=== PATIENT | female | born 1945 | race Caucasian/White ===

== ENCOUNTER → 2018-06-03 10:43 | Outpatient (CLI) | payer MEDICARE, MEDICAID, SELFPAY | PROVIDERS: Referring Provider Urology; Visit Provider Urology | DX: R30.0 Dysuria (principal) | CPT/HCPCS: 87077; 87086; 87088; 87186 ==

== ENCOUNTER 2023-02-08 15:30 | Outpatient (RCR) | payer MEDICARE, MEDICAID, SELFPAY ==
--- NOTE | 2023-01-06 12:26 | HP.PTEVAL ---
Patient's Visit Information Visit Information Visit Information: RICARDA BRYSON is a 77 year old F referred to Physical Therapy by Dr. Deena Kwon MD with a diagnosis of BPPV. Date of Evaluation: 01/06/23 Physical Therapist: SALLY Torres Visit Plan Frequency: 1-2x /Week Duration: 2 Months Plan: 1-2X/ week for 8 weeks for progressive VOR exercises (more horizontal than vertical) and progress to FGA and CATSIB testing HEP: seated horizontal smooth pursuit and head and eyes move together Subjective Subjective: Pt was sick in Jun, blew her nose and her hearing went away in her R ear and was in ER in [place] due to traveling. She was on prednizone and got better but could not hear our of R ear. They cleaned out her ears. sent her to an ENT and saw fluid on back of ear and put on antibiotics and that did not work. Then 3 weeks ago she got out of bed and started to walk and was dizzy. She has been to and julien and then did head of the edge of the bed and rotate heads because they think it is her crystals. She is contstantly dizzy... better with sitting still. When its bad she feels like a tornado of bees swarming her head. That swarming is constantly there but sometimes it is worse than others. Rolling to her R side...sometimes she will get a little swirlys but not always. There is nothing when she rolls to her L side. She can not walk without anyone hanging onto her. Just moving her head a fraction of an inch makes things swirl. She took the julien before she came. Riding in the car really stirred things up today. She is having a 6 month catscan of her lungs tomm. No catscan of her head. Pt has a pretty constant HEAD since this started that get worse at times. Pt had COVID twice but that was way back when. Pt has major anxiety right now. Pt is scared cause this is a new thing. Jake is present with pt today (/partner) Pain HEAD: Pain Intensity (Out of 10): 4 Objective Objective: Gait: walks holding onto with scissoring and reaching for zuñiga due to being dizzy. Looks straight ahead a more of a shoulder turn to look instead of head turning. R Hallpike and L Hallpike negative for increase in dizziness and nystagmus... pt had some some increase in rolling stomach once sitting up and increase dizziness when sitting up from the hallpike position. Let her rest and sx resolved Sitting smooth pursuit horizontal X 15 seconds increased nausea...subsided quickly Sitting smooth pursuit vertical X 30 seconds with no dizziness or nausea Sitting eye and head movement X 50 seconds (had increase blip of dizziness when turns head and eyes to the R every time) cause she started to feel dizzy and nauseated. Repeated Balance/Special Test Scores Dizziness Score: 88 Goals Goal 1:: I HEP Goal Time Frame: 6-8 Weeks Goal 2:: Be able to walk back to the treatment room without having to hold onto partner Goal Time Frame: 6-8 Weeks Goal 3:: Be able to walk with horizontal head turns with no dizziness and no LOB Goal Time Frame: 6-8 Weeks Goal 4:: Complete horizontal VOR in standing X 1 min without any dizziness Goal Time Frame: 6-8 Weeks Goal 5:: Complete CATSIB and FGA Goal Time Frame: 6-8 Weeks Rehabilitation Potential Rehabilitation Potential: Good Anticipated Interventions Patient/Client Instruction: Educate patient on: Condition and Plan of Care For the Purpose of:: To increase ROM, To improve nutrient delivery to tissue, To improve ability to perform ADL's, To increase tolerance to activity/condition/position, To improve performance and independence with ADL's, To decrease level of supervision to perform tasks, To improve ability of physical actions for home/community/work/leisure, To increase flexibility/ROM, To improve balance and To improve safety with gait Therapeutic Exercise to Include: Strength training, Balance training, Postural training, Gait and locomotor training, Neuromotor development and Active ROM For the Purpose of:: To improve muscle performance and motor function, To improve ability to perform ADL's, To increase tolerance to activity/condition/position, To improve performance and independence with ADL's, To decrease level of supervision to perform tasks, To improve ability of physical actions for home/community/work/leisure, To improve gait and locomotor functions, To improve health of tissue, To increase flexibility/ROM and To improve balance Functional Training to Include: Gait training For the Purpose of:: To improve gait and locomotor functions Text: Thank you for the opportunity to evaluate your patient. For Medicare and Medicare HMO plans, please review the plan of care and approve it. It will need to be FAXED BACK to us at [phone] for Medicare purposes. For Medicare only, by signing this I certify the plan of care. Please let me know if there are questions or concerns regarding this plan of care. Physician Signature: Date:
--- NOTE | 2023-02-08 15:54 | HP.PTDCSUM ---
Discharge Summary D/C summary: It has been my pleasure to treat RICARDA BRYSON referred by Dr. Deena Kwon MD, with the diagnosis of BPPV for a total of 4 visit(s). Discharge Date: 02/08/23 Please see the following information for a summary of their discharge status. Subjective Subjective: Robyn been a slacker on my exercises. Things are harder with glasses on. Probably about the same as two weeks ago. Feels disoriented allt he time and worse with fatigue. No spinning. No falls, unsteady at times. Activities are pretty normal but wants to sit on butt alot. did exercises alot 2x/day first week adn once in past week. to doctor in March. Pain HEAD: Pain Intensity (Out of 10): 4 Overall Improvement % Improvement: 75 Objective Objective/Function: FGA is excellent and significantly better. VOR no problem. - B shelly croft. Goals Goal 1:: I HEP Goal Progress: Goal Met Goal 2:: Be able to walk back to the treatment room without having to hold onto partner Goal Progress: Goal Met Goal 3:: Be able to walk with horizontal head turns with no dizziness and no LOB Goal Progress: Goal Met Goal 4:: Complete horizontal VOR in standing X 1 min without any dizziness Goal Progress: Goal Met Goal 5:: Complete CATSIB and FGA Goal Progress: Goal Met Plan Plan: d/c D/C Information Discharge Comments: Pt to contact doctor if situation worsens or does not continue to improve to her satisfaction with HEP d/c sentence: If there are questions or concerns regarding this patient's physical therapy, please feel free to call me at [phone]. Thank you for the referral of this patient. Sincerely, Tate Márquez, DPT, OCS, CSCS Balance/Gait/Functional tests Balance/Special Test Scores Functional Gait Assessment Score: 29 % Disability: 3.3400 Dizziness Score: 88
== END 2023-02-08 19:00 | disposition home or self-care (01) ==
LOC: PT 15:30
PROVIDERS: PCP Student in an Organized Health Care Education/Training Program; Referring Provider Student in an Organized Health Care Education/Training Program; Visit Provider Student in an Organized Health Care Education/Training Program
DX: H81.11 Benign paroxysmal vertigo, right ear (principal)
CPT/HCPCS: 97161; 97164; 97530

== ENCOUNTER → 2023-04-20 | Outpatient (CLI) | payer MEDICARE, MEDICAID, SELFPAY ==
[2023-04-20 12:37] VITALS: PULSE 66; PULSE 75; PULSE 80; PULSE 83; PULSE 86; PULSE 88; PULSE 89; O2SAT 95; O2SAT 96; O2SAT 97
--- NOTE | 2023-04-20 13:06 | PCM.PSN.6M ---
PSN 6 Minute Walk Test 6 Minute Walk Test 6 Minute Walk Test: 6 Minute Walk Test PSN:6-Minute Walk Test Start: 04/20/23 12:36 Freq: Status: Active Protocol: RESP.6MINW Document 04/20/23 12:37 JULIÁN (Rec: 04/20/23 12:39 FLORENTINOCELINEOSMAN [id number]) 6 Minute Walk Test Date Performed 04/20/23 Time Performed 12:30 Height 5 ft 8 in Weight: 72.575 kg Weight in Pounds 160.[address]: Jamar Melvin Assistive device used: None Pre-test Oxygen Delivery Method Room Air Pulse Ox 96 Pulse Rate (60-100) 66 Dyspnea Stacy Scale (0-10) 0.5 Exertion Stacy Scale (6-20) 6 1st minute Oxygen Delivery Method Room Air Pulse Ox 96 Pulse Rate (60-100) 80 2nd minute Oxygen Delivery Method Room Air Pulse Ox 96 Pulse Rate (60-100) 83 3rd minute Oxygen Delivery Method Room Air Pulse Ox 95 Pulse Rate (60-100) 86 4th minute Oxygen Delivery Method Room Air Pulse Ox 96 Pulse Rate (60-100) 88 5th minute Oxygen Delivery Method Room Air Pulse Ox 97 Pulse Rate (60-100) 89 6th minute Oxygen Delivery Method Room Air Pulse Ox 97 Pulse Rate (60-100) 86 Dyspnea Stacy Scale (0-10) 1 Exertion Stacy Scale (6-20) 13 Post-test Oxygen Delivery Method Room Air Pulse Ox 97 Pulse Rate (60-100) 75 Full Laps Walked 21 Partial Lap, Number of Tiles Walked 10 Total Distance Walked (ft) 1249 Interpretation Interpretation: The patient was able to ambulate 1249 feet over the course of 6 minutes on room air with no assistive devices or breaks. Patient experienced no significant changes in saturation or heart rate during testing. These findings are consistent with a normal walking oximetry. Recommendations Recommendations: No supplemental oxygen is indicated at this time.
== END | disposition home or self-care (01) ==
LOC: PSN 12:15
PROVIDERS: PCP Student in an Organized Health Care Education/Training Program; Referring Provider Internal Medicine Critical Care Medicine; Visit Provider Internal Medicine Critical Care Medicine
DX: R06.00 Dyspnea, unspecified (principal)
CPT/HCPCS: 94618

== ENCOUNTER → 2023-04-26 | Outpatient (CLI) | payer MEDICARE, MEDICAID, SELFPAY ==
--- NOTE | 2023-04-27 08:02 | PFT ---
INTRODUCTION: The patient is a 77-year-old female who presents for pulmonary function studies secondary to a diagnosis of dyspnea. Respiratory therapy reported good patient effort. Bronchodilators were used during testing. INTERPRETATION: Forced expiration spirometry demonstrates the presence of a mild large airways obstructive ventilatory defect. There was no significant response to aerosolized bronchodilators. Spirograms are of good quality and plateau gradually indicating slow emptying of the lungs. Body plethysmography was performed and revealed an elevated RV to 137% of predicted, indicative of underlying air trapping. Diffusing capacity by single breath CO was reduced at 71% of predicted. IMPRESSION: Irreversible mild large airways obstructive ventilatory defect with associated air trapping and symmetric reduction in diffusion capacity.
== END | disposition home or self-care (01) ==
LOC: PSN 12:25
PROVIDERS: PCP Student in an Organized Health Care Education/Training Program; Referring Provider Internal Medicine Critical Care Medicine; Visit Provider Internal Medicine Critical Care Medicine
DX: R06.00 Dyspnea, unspecified (principal)
CPT/HCPCS: 94060; 94726; 94729

== ENCOUNTER 2023-05-03 05:19 | Day surgery (SDC) | payer MEDICARE, MEDICAID, SELFPAY ==
--- NOTE | 2023-05-03 | IMM_PTH ---
PATIENT: RICARDA BRYSON LOC: EN U#:[id number] AGE/SX: 77/F ROOM: RE05/03/[address]: Dr. Mauri Macedo DO : 1945 BED: DIS: 05/03/2023 SPEC #: [id number] RECD: 05/04/23 12:56 STATUS: SANJEEV REQ #: [id number] KENADLL: 05/03/23 00:[address]: Mauri Macedo DEPT: IMMUNOHISTOCHEMISTRY RECD BY: Rashmi Fried ENTERED: 05/04/23 12:57 SP TYPE: IMMUNO OTHR DR: Dr. Deena Kwon MD Tissues: Esophagus, NOS Procedures: P53 (initial) KI-67 (initial) PHYSICIAN & INSTITUTION [place] [id number] SPECIMEN INFORMATION: Tissue Source: Distal esophagus Clinical Info: Pernicious anemia, hiatal hernia, diverticulosis Specimen Number: [id number] CPT code: 33509, 73933 METHODOLOGY: Deparaffinized sections of prefer/formalin-fixed tissue or PAP/DQ stained slides are incubated with monoclonal/polyclonal antibodies/oligonucleotide probes. Localization is made via biotin free immunoperoxidase method. Appropriate controls are performed and reacted as expected. Results on target cell population are indicated in the following table: RESULTS: ANTIBODY / CLONE RESULT P53 (DO-7) negative (null pattern) Ki-67 (30-9) positive, low These tests were developed, and their performance characteristics determined by [facility]. They may not have been cleared or approved by the U.S. Food and Drug Administration. The FDA has determined that such clearance or approval is not necessary. The above immunohistochemical/dualISH markers are ordered and reviewed by the Pathologist. INTERPRETATION: Distal Esophagus Biopsy: Negative for dysplasia. JOSE MANUEL:carito 05/05/2023
[2023-05-03 05:51] VITALS: BP 129/78; PULSE 80; RESP 18; TEMP 36.6; O2SAT 99; BMI 24.5
[2023-05-03] MEDS: Lactated Ringers 1,000 ML 15 ML IV (05:55)
--- NOTE | 2023-05-03 06:30 | EGD_PTH ---
PATIENT: RICARDA BRYSON LOC: EN U#:[id number] AGE/SX: 77/F ROOM: RE05/03/[address]: Dr. Mauri Macedo DO : 1945 BED: DIS: 05/03/2023 SPEC #: [id number] RECD: 05/03/23 10:29 STATUS: SANJEEV REEMA #: [id number] KENDALL: 05/03/23 06:[address]: Mauri Macedo DEPT: SURGICAL PATHOLOGY RECD BY: Montserrat Sims ENTERED: 05/03/23 11:26 SP TYPE: EGD BIOPSY [facility] DR: Dr. Deena Kwon MD Tissues: A - Esophageal mucous membrane B - COLON BIOPSY Procedures: Surgery Specimen Level IV HEADER OPERATION: Colonoscopy with biopsy, EGD with biopsy PRE-OP DIAGNOSIS: Pernicious anemia, hiatal hernia, diverticulosis TISSUE SUBMITTED: A. distal esophagus, B. Ascending colon polyp MICROSCOPIC DIAGNOSIS A. Distal esophagus, biopsy: Fragments of gastroesophageal mucosa with intestinal metaplasia (goblet cell metaplasia), consistent with Kwong's esophagus. Chronic inflammation and changes consistent with gastroesophageal reflux disease. Negative for dysplasia. See comment. B. Ascending colon polyp, biopsy: Tubular adenoma. SJ: 05/04/2023 COMMENT A. Alcian blue/PAS stain with matched control is used in the evaluation of the specimen. Immunohistochemistry ([id number]) for P53 and Ki-67 will be performed and results will be reported separately. MICROSCOPIC DESCRIPTION Slides are reviewed. GROSS DESCRIPTION A. Received is one container labeled with the patient name and designated distal esophagus. The specimen consists of multiple irregular fragments of light robles soft tissue that in aggregate measure 0.8 x 0.2 x 0.1 cm. The specimen is totally submitted in one cassette. B. Received is one container labeled with the patient name and designated ascending colon polyp. The specimen consists of one irregular fragment of light robles soft tissue that measures 0.4 x 0.3 x 0.1 cm. The specimen is totally submitted in one cassette. /JOSE MANUEL:XANDER 05/03/23 TC:1 CPT: 33840 x2, 52219
--- NOTE | 2023-05-03 06:51 | PCM.HP.BLA ---
History and Physical Date of Admission: 05/03/23 77 F who presents to the office today for follow up. *BGI established 1.7.22 with history of reflux, esophageal dysphagia s/p dilation and hiatal hernia; well managed with use of Nexium without symptoms for 10 years. History of diverticulitis with constipation that is well managed with Colace, fiber and stress management. ?EGD and colonoscopy?not performed. No follow up.? ? ? ROS Const Constitutional: Positive for fatigue and headache(s) ENT ENT: Positive for headache(s); No difficulty swallowing Gastro GI: Positive for bloating and excessive flatus; No abdominal pain, belching, change in bowel habits, change in stool character, coffee ground emesis, constipation, cramping, diarrhea, heartburn, difficulty swallowing, feeling full early, incontinent of stools, Vomiting blood/hematemesis, Blood in stool, loose stools, Black,tarry stools, nausea/dyspepsia, pain with swallowing, vomiting or other Musc Musculoskeletal: Positive for back pain, muscle weakness, numbness, stiffness and tingling; No joint pain Skin Skin: No yellowing of the eye or itchy eyes Neuro Neurology: Positive for headache(s), numbness and tingling Psych Psychiatric: Positive for anxiety and No depression Endo Endocrine: Positive for fatigue Aller/Imm Allergy/Immunologic: No itchy eyes Alphonso/Lymp Hematologic/Lymphatic: No easy bleeding or easy bruising Exam Const General: cooperative and comfortable Nutritional Appearance: average body habitus and well nourished [facility] Head: normal to inspection Ears: hearing grossly normal bilaterally Nose: external nose normal Face and sinus: normal facial exam Mouth: oral mucosae normal Throat: posterior oropharynx normal Eyes General: appearance normal, both eyes and all related structures Neck Neck: normal visual inspection Chest Chest palpation & inspection: normal inspection of the chest and normal palpation of entire chest wall Resp Effort & Inspection: normal respiratory effort Auscultation: Bilateral: Clear to Auscultation Cardio Palpation: normal PMI Rate: regular rate Rhythm: regular rhythm GI Inspection: normal to inspection Auscultation: normal bowel sounds Percussion: normal to percussion Palpation: no hepatosplenomegaly Skin General: no rashes or lesions noted Neuro General: patient alert Extrem General: normal to inspection Psych Affect: normal affect Quality Reporting Tobacco Screening ([facility] 138) Smoking Status: Current every day smoker Assessment and Plan Assessment and Plan (1) Pernicious anemia: Status: Acute Plan: We will evaluate her upper GI tract for atrophic gastritis which can contribute to pernicious anemia. Also we will check a serum gastrin level as hypergastrinemia associated with atrophic gastritis and pernicious anemia can lead to neuroendocrine tumors in the stomach. (2) Hiatal hernia: Status: Acute Plan: We will evaluate her hiatal hernia and see if she has a paraesophageal hernia or a sliding hiatal hernia. At this time there would be no other recommendations until after endoscopy. (3) Diverticulosis: Status: Inactive Plan: She is doing very well with her diverticular disease and regarding have a normal bowel movement every day with the use of 2 Colace and 1 fiber pill. After she has a colonoscopy will be able to assess if she has mild/moderate or severe disease and further recommendations will come after that. Orders: Orders CBC W/Diff, Automated Today D51.0 - Vitamin B12 deficiency anemia due to intrinsic factor deficiency, K44.9 - Diaphragmatic hernia without obstruction or gangrene, R10.9 - Unspecified abdominal pain Comprehensive Metabolic Profil Today D51.0 - Vitamin B12 deficiency anemia due to intrinsic factor deficiency, R10.9 - Unspecified abdominal pain MAGALY + Protein Elect, Serum Today D51.0 - Vitamin B12 deficiency anemia due to intrinsic factor deficiency, R10.9 - Unspecified abdominal pain Immunoglobulins G/A/M/E Today D51.0 - Vitamin B12 deficiency anemia due to intrinsic factor deficiency, R10.9 - Unspecified abdominal pain Erythrocyte Sed Rate Today D51.0 - Vitamin B12 deficiency anemia due to intrinsic factor deficiency, R10.9 - Unspecified abdominal pain CRP Today D51.0 - Vitamin B12 deficiency anemia due to intrinsic factor deficiency, R10.9 - Unspecified abdominal pain Celiac Disease Profile Today D51.0 - Vitamin B12 deficiency anemia due to intrinsic factor deficiency, R10.9 - Unspecified abdominal pain ANCA Today D51.0 - Vitamin B12 deficiency anemia due to intrinsic factor deficiency, R10.9 - Unspecified abdominal pain LUZ MARIA Comprehensive Panel Today D51.0 - Vitamin B12 deficiency anemia due to intrinsic factor deficiency, R10.9 - Unspecified abdominal pain Stool Lactoferrin/WBC Today D51.0 - Vitamin B12 deficiency anemia due to intrinsic factor deficiency, R10.9 - Unspecified abdominal pain LDH Today D51.0 - Vitamin B12 deficiency anemia due to intrinsic factor deficiency, R10.9 - Unspecified abdominal pain Calprotectin, Stool Today D51.0 - Vitamin B12 deficiency anemia due to intrinsic factor deficiency, R10.9 - Unspecified abdominal pain Miscellaneous Lab Procedure Today D51.0 - Vitamin B12 deficiency anemia due to intrinsic factor deficiency, R10.9 - Unspecified abdominal pain I have examined the patient and the H&P has been reviewed. There are no clinical changes since date of exam.
[2023-05-03 07:15] VITALS: BP 129/78; BP 64/43; PULSE 65; RESP 16; TEMP 36.2; O2SAT 94
[2023-05-03 07:20] VITALS: BP 129/78; BP 88/47; PULSE 65; RESP 16; O2SAT 94
--- NOTE | 2023-05-03 07:20 | OP.EGD_ITS ---
Patient Name: Shanda Young Procedure Date: 05/03/2023 6:24 AM Date of : 1945 Age: 77 Procedure: Upper GI endoscopy Indications: Functional Dyspepsia, Dysphagia Providers: Mauri Macedo DO Medicines: Monitored Anesthesia Care Patient Profile: This is a 77 year old female. Refer to note in patient chart for documentation of history and physical. Patient has symptoms of chronic dysphagia and chronic dyspepsia. Complications: No immediate complications. Procedure: Pre-Anesthesia Assessment: - Prior to the procedure, a History and Physical was performed, and patient medications and allergies were reviewed. The patient is competent. The risks and benefits of the procedure and the sedation options and risks were discussed with the patient. All questions were answered and informed consent was obtained. Patient identification and proposed procedure were verified by the physician. Mental Status Examination: normal. Prophylactic Antibiotics: The patient does not require prophylactic antibiotics. Prior Anticoagulants: The patient has taken no anticoagulant or antiplatelet agents. ASA Grade Assessment: III - A patient with severe systemic disease. After reviewing the risks and benefits, the patient was deemed in satisfactory condition to undergo the procedure. The anesthesia plan was to use monitored anesthesia care (MAC). Immediately prior to administration of medications, the patient was re-assessed for adequacy to receive sedatives. The heart rate, respiratory rate, oxygen saturations, blood pressure, adequacy of pulmonary ventilation, and response to care were monitored throughout the procedure. The physical status of the patient was re-assessed after the procedure. After obtaining informed consent, the endoscope was passed under direct vision. Throughout the procedure, the patient's blood pressure, pulse, and oxygen saturations were monitored continuously. The colonoscope was introduced through the mouth, and advanced to the second part of duodenum. The upper GI endoscopy was accomplished without difficulty. The patient tolerated the procedure well. Scope In: 6:55:44 AM Scope Out: 6:58:02 AM Total Procedure Duration Time 0 hours 2 minutes 18 seconds Findings: Grade I varices were found in the lower third of the esophagus. They were 5 mm in largest diameter. A moderate Schatzki ring was found in the lower third of the esophagus. Biopsies were taken with a cold forceps for histology. Verification of patient identification for the specimen was done. Estimated blood loss was minimal. A small hiatal hernia was present. No gross lesions were noted in the entire examined stomach. The duodenal bulb was normal. Impression: - Grade I esophageal varices. - Moderate Schatzki ring. Biopsied. - Small hiatal hernia. - No gross lesions in the entire stomach. - Normal duodenal bulb. Recommendation: - Discharge patient to home. - Ultrasound and FibroScan of the liver to look for any signs of portal hypertension which would result in varices in the esophagus. - Continue present medications. Procedure Code(s): --- Professional --- 91851, Esophagogastroduodenoscopy, flexible, transoral; with biopsy, single or multiple CPT copyright 2021 [employer]. All rights reserved. The codes documented in this report are preliminary and upon surgical coder review may be revised to meet current compliance requirements. Mauri Macedo DO 05/03/2023 7:19:37 AM This report has been signed electronically. Number of Addenda: 0 Note Initiated On: 05/03/2023 6:24 AM
--- NOTE | 2023-05-03 07:21 | OP.CCLET_ITS ---
05/03/2023 Deena Kwon Md Re : Upper GI endoscopy procedure for Shanda Young Dear Doyle This procedure was performed on Wednesday, May 03, 2023. My impressions and recommendations are as follows: Impressions : - Grade I esophageal varices. - Moderate Schatzki ring. Biopsied. - Small hiatal hernia. - No gross lesions in the entire stomach. - Normal duodenal bulb. Recommendations : - Discharge patient to home. - Ultrasound and FibroScan of the liver to look for any signs of portal hypertension which would result in varices in the esophagus. - Continue present medications. My findings are described in the full procedure note, which is enclosed. If I can be of further assistance, please feel free to contact me at . Sincerely, Mauri Friend, 05/03/2023 7:19:37 AM This report has been signed electronically.
[2023-05-03 07:25] VITALS: BP 129/78; BP 95/65; PULSE 63; RESP 16; O2SAT 100
--- NOTE | 2023-05-03 07:27 | OP.CCLET_ITS ---
05/03/2023 Deena Kwon Md Re : Colonoscopy procedure for Shanda Young Dear Doyle This procedure was performed on Wednesday, May 03, 2023. My impressions and recommendations are as follows: Impressions : - One 5 mm polyp in the ascending colon, removed with a cold snare. Resected and retrieved. - Diverticulosis in the recto-sigmoid colon, in the sigmoid colon and in the descending colon. - The examination was otherwise normal on direct and retroflexion views. Recommendations : - Discharge patient to home. - Resume previous diet. - Continue present medications. - Await pathology results. - Repeat colonoscopy in 5 years for surveillance. My findings are described in the full procedure note, which is enclosed. If I can be of further assistance, please feel free to contact me at . Sincerely, Mauri Macedo, 05/03/2023 7:25:00 AM This report has been signed electronically.
--- NOTE | 2023-05-03 07:27 | OP.COLON_ITS ---
Patient Name: Shanda Young Procedure Date: 05/03/2023 6:58 AM Date of : 1945 Age: 77 Procedure: Colonoscopy Indications: Screening for colorectal malignant neoplasm Providers: Mauri Macedo DO Medicines: Monitored Anesthesia Care Patient Profile: This is a 77 year old female. Refer to note in patient chart for documentation of history and physical. Patient has symptoms of chronic dysphagia and chronic dyspepsia. Last Colonoscopy: date unknown. Unable to locate last colonoscopy report. Complications: No immediate complications. Procedure: Pre-Anesthesia Assessment: - Prior to the procedure, a History and Physical was performed, and patient medications and allergies were reviewed. The patient is competent. The risks and benefits of the procedure and the sedation options and risks were discussed with the patient. All questions were answered and informed consent was obtained. Patient identification and proposed procedure were verified by the physician. Mental Status Examination: normal. Prophylactic Antibiotics: The patient does not require prophylactic antibiotics. Prior Anticoagulants: The patient has taken no anticoagulant or antiplatelet agents. ASA Grade Assessment: III - A patient with severe systemic disease. After reviewing the risks and benefits, the patient was deemed in satisfactory condition to undergo the procedure. The anesthesia plan was to use monitored anesthesia care (MAC). Immediately prior to administration of medications, the patient was re-assessed for adequacy to receive sedatives. The heart rate, respiratory rate, oxygen saturations, blood pressure, adequacy of pulmonary ventilation, and response to care were monitored throughout the procedure. The physical status of the patient was re-assessed after the procedure. After I obtained informed consent, the scope was passed under direct vision. Throughout the procedure, the patient's blood pressure, pulse, and oxygen saturations were monitored continuously. The colonoscope was introduced through the anus and advanced to the terminal ileum. The colonoscopy was performed without difficulty. The patient tolerated the procedure well. The quality of the bowel preparation was good. The terminal ileum, ileocecal valve, appendiceal orifice, and rectum were photographed. Scope In: 6:59:33 AM Scope Withdrawal Time 0 hours 5 minutes 31 seconds Scope Out: 7:09:01 AM Total Procedure Duration Time 0 hours 9 minutes 28 seconds Findings: The perianal and digital rectal examinations were normal. A 5 mm polyp was found in the ascending colon. The polyp was sessile. The polyp was removed with a cold snare. Resection and retrieval were complete. Verification of patient identification for the specimen was done. Estimated blood loss was minimal. Multiple small and large-mouthed diverticula were found in the recto-sigmoid colon, sigmoid colon and descending colon. The exam was otherwise without abnormality on direct and retroflexion views. Impression: - One 5 mm polyp in the ascending colon, removed with a cold snare. Resected and retrieved. - Diverticulosis in the recto-sigmoid colon, in the sigmoid colon and in the descending colon. - The examination was otherwise normal on direct and retroflexion views. Recommendation: - Discharge patient to home. - Resume previous diet. - Continue present medications. - Await pathology results. - Repeat colonoscopy in 5 years for surveillance. Procedure Code(s): --- Professional --- 68560, Colonoscopy, flexible; with removal of tumor(s), polyp(s), or other lesion(s) by snare technique CPT copyright 2021 [employer]. All rights reserved. The codes documented in this report are preliminary and upon hose inspector and patcher review may be revised to meet current compliance requirements. Mauri Macedo DO 05/03/2023 7:25:00 AM This report has been signed electronically. Number of Addenda: 0 Note Initiated On: 05/03/2023 6:58 AM
[2023-05-03 07:30] VITALS: BP 129/78; BP 94/49; PULSE 60; RESP 16; TEMP 36.5; O2SAT 100
[2023-05-03 07:48] VITALS: BP 129/78
== END 2023-05-03 08:05 | disposition home or self-care (01) ==
LOC: EN 05:20 → AC 05:21
PROVIDERS: PCP Student in an Organized Health Care Education/Training Program; Referring Provider Student in an Organized Health Care Education/Training Program; Visit Provider Internal Medicine Gastroenterology
PROC: 0DJD8ZZ Inspection of Lower Intestinal Tract, Via Natural or Artificial Opening Endoscopic (ICD-10-PCS; CPT 45378; principal; 2023-05-03 06:25)
DX: Z12.11 Encounter for screening for malignant neoplasm of colon (principal); I85.00 Esophageal varices without bleeding; J44.9 Chronic obstructive pulmonary disease, unspecified; D51.0 Vitamin B12 deficiency anemia due to intrinsic factor deficiency; K44.9 Diaphragmatic hernia without obstruction or gangrene; K57.30 Diverticulosis of large intestine without perforation or abscess without bleeding; F17.200 Nicotine dependence, unspecified, uncomplicated; K21.00 Gastro-esophageal reflux disease with esophagitis, without bleeding; R51.9 Headache, unspecified; K22.2 Esophageal obstruction; K22.70 Barrett's esophagus without dysplasia; D12.2 Benign neoplasm of ascending colon; Z87.19 Personal history of other diseases of the digestive system
CPT/HCPCS: 45385; 43239; 88305; 88342; J7120; J2405

== ENCOUNTER → 2023-05-27 | Outpatient (CLI) | payer MEDICARE, MEDICAID, SELFPAY ==
--- NOTE | 2023-05-27 09:35 | US_ITS ---
STUDY: ABDOMINAL ULTRASOUND - RIGHT UPPER QUADRANT; ELASTOGRAPHY REASON FOR VISIT: Female, 77 years old. Esophageal varices. TECHNIQUE: Ultrasound evaluation of the right upper quadrant was performed with real-time and static miranda-scale imaging. Point quantification shear wave elastography was performed (Need). TECHNICAL QUALITY: Adequate. COMPARISON: None. FINDINGS: Liver: The liver is enlarged and measures 18.8 cm. There is increased echogenicity consistent with fatty infiltration. The bile ducts are within normal limits. There is hepatic color flow. The direction of portal flow is hepatopetal. There is no demonstrated mass lesion. Median liver stiffness measured 5.5 kPa. Gallbladder: Normal distended gallbladder. The gallbladder wall measures 1.8 mm. There is a negative sonographic Mcdaniels''s sign. There is no pericholecystic fluid. There are no gallstones. Small amount of sludge is seen in the gallbladder lumen. Common Bile Duct (C.B.D.): The common bile duct measures 4.3 mm. Pancreas: There is increased echogenicity of the pancreas. There is no demonstrated pancreatic mass or cyst. Right Kidney: Normal size of the right kidney. The right kidney measures 10.7 cm x 4.7 cm x 4.5 cm. Normal renal cortex. The right cortex measures 1.2 cm. There is no demonstrated renal mass or cyst. There is no right hydronephrosis. US/ABD Limited w/ Elastography IMPRESSION: 1. Liver stiffness measures 5.5 kPa compatible with F0-F1 (Normal to mild liver fibrosis) Metavir score. Electronically Signed: Jewel Vazquez MD at 10:57 EST ,
--- NOTE | 2023-05-27 13:14 | CT_ITS ---
STUDY: CT ABDOMEN AND PELVIS WITH CONTRAST REASON FOR EXAM: Female, 77 years old. Hepatitis C. RADIATION DOSAGE (If Supplied By Facility): CTDIvol = ( 17.73 ) mGy, DLP = ( 994.97 ) mGycm TECHNIQUE: Transaxial images were obtained from the dome of the diaphragm to the symphysis pubis with oral contrast. Oral and amp; IV Gastrografin and amp; 100mL Isovue-300 was administered. Sagittal and coronal images were reconstructed. Individualized dose optimization techniques were used for this CT. COMPARISON: Comparison is made with prior sonogram of the right upper quadrant done earlier today. FINDINGS: The visualized lung bases are unremarkable. The visualized portions of the heart are within normal limits. Normal liver. Normal gallbladder and extrahepatic biliary system. Normal spleen. Normal pancreas. Normal bilateral adrenal glands. 1.4 cm cyst in the lateral upper pole of the right kidney. Normal left kidney. Normal visualized stomach. Normal small intestine. There are multiple colonic diverticula consistent with diverticulosis. The appendix is visualized and appears normal. There is diffuse atherosclerotic calcification of the abdominal aorta, without a demonstrated aneurysm. Normal inferior vena cava. Normal retroperitoneum. Normal urinary bladder. There is absence of the uterus consistent with a prior hysterectomy. Normal abdominal wall. There are diffuse degenerative changes of the visualized lumbar spine. Loss of the normal lumbar lordosis. CT/Abdomen/Pelvis WITH Contrast IMPRESSION: Right renal cyst. Sigmoid diverticulosis. Electronically Signed: Jewel Vazquez MD at 14:54 EST ,
[2023-05-27 16:05] LABS: CREATININE FINGERSTICK < 1.0 mg/dL (0.55-1.02)
== END | disposition home or self-care (01) ==
LOC: US 09:34
PROVIDERS: PCP Student in an Organized Health Care Education/Training Program; Referring Provider Internal Medicine Gastroenterology; Visit Provider Internal Medicine Gastroenterology
DX: I85.00 Esophageal varices without bleeding (principal)
CPT/HCPCS: 74177; 76705; 76981; Q9967

== ENCOUNTER 2025-03-12 13:14 | Day surgery (SDC) | payer MEDICARE, MEDICAID, SELFPAY ==
[2025-03-12] VITALS (9 sets, daily range): BP systolic 92–133; BP diastolic 48–85; PULSE 54–69; RESP 16–18; TEMP 36.1–36.8; O2SAT 94–98; BMI 25.7
[2025-03-12] MEDS: Lactated Ringers 1,000 ML 15 ML IV (13:39)
--- NOTE | 2025-03-12 14:15 | EGD_PTH ---
PATIENT: RICARDA BRYSON LOC: EN U#:[id number] AGE/SX: 79/F ROOM: RE03/12/[address]: Dr. Mauri Macedo DO : 1945 BED: DIS: 03/12/2025 SPEC #: [id number] RECD: 03/12/25 15:58 STATUS: SANJEEV REQ #: [id number] KENDALL: 03/12/25 14:[address]: Mauri Macedo DEPT: SURGICAL PATHOLOGY RECD BY: Tone Brooks ENTERED: 03/13/25 11:41 SP TYPE: EGD BIOPSY FIDE DR: Dr. Deena Kwon MD Tissues: A - Gastric mucous membrane Procedures: Immunohistochemical Stains Surgery Specimen Level IV HEADER OPERATION: EGD with biopsy PRE-OP DIAGNOSIS: Abdominal pain TISSUE SUBMITTED: A- Gastric antrum biopsy MICROSCOPIC DIAGNOSIS A. Stomach, antrum, biopsy: - Oxynto-pyloric mucosa with slight chronic inflammation - An immunohistochemical stain for Helicobacter pylori is negative MICROSCOPIC DESCRIPTION Slides are reviewed. All matched controls reacted appropriately. These tests were developed and their performance characteristics determined by [facility]. They may not have been cleared or approved by the [place]. Food and Drug Administration. The FDA has determined that such clearance or approval is not necessary. The above immunohistochemical/dualISH markers are viewed by the Pathologist. GROSS DESCRIPTION A. Received in fixative is one container labeled with the patient's name and designated Gastric antrum biopsy. The specimen consists of two irregular fragments of light robles tissue that measure 0.4 and 0.5 cm. The specimen is totally submitted in one cassette. IN 03/13/2025 CPT:18430,13517
--- NOTE | 2025-03-12 14:28 | PCM.PRE.AN2 ---
ASA Classification* ASA Classification ASA Classification: 3 Assessment & Plan Anesthesia* Anesthesia Assessment Anesthesia Assessment: Discussed sedation and/or anesthesia options, risks, benefits, and alternatives with patient/parents/legal guardian/POA. Questions invited. The patient/parents/legal guardian/POA seems to understand and agrees to proceed with anesthesia plan. Reviewed the physical assessment, medical history, allergy history and patient home medications list prior to surgery/procedure/anesthetic and documented any changes. Performed airway and anesthesia risk assessments. Anesthesia Type Anesthesia Type: MAC History Source History Obtained from:: Patient and Chart Anesthesia Focused Assessment* Temperature: 98.1 F Pulse Rate: 69 Blood Pressure: 133/85 Respiratory Rate: 18 Pulse Ox: 98 Oxygen Delivery Method: Room Air Airway Assessment Mouth opens: >3 cm Mallampati Score: II Teeth Condition: Intact Neck Range of motion (ROM): Full ROM Labs Anesthesia Preop lab: CBC CHEMISTRY COAG Pre-Assessment Diagnosis/Proposed Procedure Planned Operative Procedure(s): EGD Anesthesia History Anesthesia History - economic analysis director: Anesthesia History - economic analysis director Hx Hospitalization Yes: 02/13/25. DIVERTICULITIS 03/08/25 10:42 Any Problems With Anesthesia No 03/08/25 10:42 Cholinesterase deficiency No 03/08/25 10:42 You/Your Family Experience No 03/08/25 10:42 fever (hyperthermia) with Relationship Recent Exposure to Contagious No 05/03/23 05:51 Disease Does patient have nerve No 03/08/25 10:42 stimulator Patient instructed to have device shut off --Does patient have Pacemaker No 03/12/25 13:35 or ICD? When Was Last Pacemaker Check QUESTION #4 FULL TEXT: You/Your Family Experience fever (hyperthermia) with Anesthesia Last Oral Intake Last Oral intake: Last Oral Intake NPO since 09:30 03/12/25 13:35 Meds taken in AM with sips of Yes 03/12/25 13:35 water? Meds patient instructed to take am of surgery PONV PONV - economic analysis director: PONV - economic analysis director Female Yes 03/08/25 10:42 HX of Motion Sickness No 03/08/25 10:42 HX of N/V After Surgery No 03/08/25 10:42 Non-Smoker No 03/08/25 10:42 Duration of Surgery greater No 03/08/25 10:42 than 60 minutes Number of Risk Factors 1 03/08/25 10:42 PONV Score Low Risk 03/08/25 10:42 Height & Weight Height & Weight: Anesthesia: Height & Weight Height 5 ft 8 in 03/12/25 13:35 Weight: 76.7 kg 03/12/25 13:35 Body Mass Index (BMI) 25.7 03/12/25 13:35 Respiratory Assessment Respiratory Assessment - economic analysis director: Respiratory Tract Infection Hx - economic analysis director Hx Respiratory Tract Infection No 03/08/25 10:42 STOP Sleep Apnea STOP Sleep Apnea - economic analysis director: STOP Sleep Apnea - economic analysis director Hx Hypertension Yes: ONLY RECENTLY WITH 03/08/25 10:42 ILLNESS Hx Sleep Apnea No 03/08/25 10:42 CPAP No 03/08/25 10:42 BIPAP No 03/08/25 10:42 Do you snore loudly (louder No 03/08/25 10:42 than talking or can be heard Do you often feel tired/ Yes 03/08/25 10:42 fatigued/ sleepy during daytime? Has anyone observed you stop No 03/08/25 10:42 breathing during sleep? STOP Results Positive 03/08/25 10:42 QUESTION #5 FULL TEXT : Do you snore loudly (louder than talking or can be heard through closed doors)? 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 Specify any problems Hx of Preganancy in last 3 No 03/08/25 10:42 Months Nurse Filling Out Transfusion DSCHRIBER 03/08/25 10:42 & Questions: Date: 03/08/25 03/08/25 10:42 Time: 10:46 09/12/25 10:42 Patient unable to answer at this time (ie. confused, unrespo /Reproduction History /Reproductive History - economic analysis director: /Reproductive Hx- economic analysis director Hx Now No 03/08/25 10:42 Gestational Age (in weeks): EDC: Hx Hx Para Hx Section SAB No 03/08/25 10:42 Active Medications Active Medications: Current Medications Generic Name Dose Route Start Last Admin Trade Name Freq PRN Reason Stop Dose Admin Lactated Ringer's 1,000 mls @ 15 mls/hr 03/12/25 13:30 03/12/25 13:39 IV 15 mls/hr .Q48H VIDAL Administration PFSH Medical History (Updated 03/10/25 @ 19:[address] Nelly Don MD) Constipation GERD (gastroesophageal reflux disease) Diverticulitis UTI (urinary tract infection) Post-menopausal atrophic vaginitis Pelvic and perineal pain Complex renal cyst Wears glasses Cancer Pernicious anemia Hepatitis Hoarseness Syncope Hypotension Dietary restriction History of hiatal hernia History of ulceration History of diverticulitis Smoker Abdominal pain History of edema Depression History of IBS Gastric reflux History of esophageal dilatation Migraine Hyperlipidemia Anxiety Fibromyalgia Vitamin B deficiency Diverticulosis Home Medications ?Medication ?Instructions ?Recorded ?Last Taken ?Type acetaminophen 500 mg capsule 500 mg PO Q6H PRN pain 07/02/21 03/12/25 09:30 History cranberry fruit 400 mg capsule 400 mg PO BID 07/02/21 Unknown History esomeprazole magnesium 40 mg 40 mg PO DAILY 07/02/21 03/12/25 09:30 History capsule,delayed release (Nexium) rosuvastatin 20 mg tablet 20 mg PO DAILY 07/02/21 Unknown History xkgmkuh-pivgplsjvoqcc-xrjcepoc 250 2 tab PO Q6H PRN pain 02/14/23 Unknown History mg-250 mg-65 mg tablet (Excedrin Migraine) Held on 03/12/25. Instructions: Order Changed calcium-mag oxide-vitamin D3 250 1 cap PO BID 02/14/23 Unknown History mg-125 mg-100 unit capsule (Coral Calcium) fluticasone propionate 50 1 spray intranasal Q12H allergy 02/14/23 Unknown History mcg/actuation nasal symptoms spray,suspension (Allergy Relief (fluticasone)) lifitegrast 5 % eye drops in a 1 drp ophthalmic (eye) BID 02/14/23 Unknown History dropperette (Xiidra) potassium 99 mg tablet 99 mg PO QDAY 02/14/23 Unknown History triamcinolone acetonide 0.1 % 1 applic topical DAILY PRN EARS 02/14/23 Unknown History topical cream vitamin b12 1,200 unit IM Q3W 02/14/23 Unknown History escitalopram oxalate 20 mg tablet 20 mg PO QDAY 11/02/23 Unknown History lorazepam 0.5 mg tablet 0.5 mg PO Q6H PRN anxiety 11/02/23 03/12/25 09:30 History cholecalciferol (vitamin D3) 25 2,000 unit PO DAILY 05/30/24 Unknown History mcg (1,000 unit) capsule Lactobacillus acidophilus 10 mg PO DAILY 03/08/25 03/12/25 09:30 History (Acidophilus capsule) docusate sodium 100 mg capsule 100 mg PO BID 03/08/25 Unknown History (Colace) simethicone 80 mg chewable tablet 80 mg PO BID PRN abdominal 03/08/25 Unknown History distention Allergy/AdvReac Type Severity Reaction Status Date / Time amoxicillin Allergy Intermediate unknown Verified 03/12/25 13:34 latex Allergy Intermediate Unknown Verified 03/12/25 13:34 metronidazole (From Flagyl) Allergy Intermediate unknown Verified 03/12/25 13:34 Quinolones Allergy Intermediate unknown Verified 03/12/25 13:34 Sulfa (Sulfonamide Allergy Intermediate unknown Verified 03/12/25 13:34 Antibiotics) fentanyl Allergy Angioedema Verified 03/12/25 13:34 nitrous oxide Allergy Other Verified 03/12/25 13:34 soap Allergy Other Uncoded 03/08/25 13:43 Family History (Updated 03/08/25 @ 12:31 by Lyn Garcia) Mother Hypertension Cancer Father Hypertension Sister Cancer Brother Cancer Other Heart disease Skin cancer Surgical History (Updated 03/08/25 @ 10:56 by Sherrill Mayer) Hx of melanoma excision Hx of colonoscopy H/O bilateral cataract extraction History of hysterectomy History of tonsillectomy History of lumpectomy of left breast Social History (Updated 03/08/25 @ 12:32 by Lyn Garcia) Smoking Status: Current every day smoker tobacco type: cigarettes alcohol intake: never substance use type: does not use caffeine: Yes Type: coffee and tea Number of servings: 2 what type of physical activity do you participate in: none and other frequency: other duration: other do you feel safe at home: Yes Review of Systems (Anesthesia) ROS Narrative System reviewed and no additional complaints, except as documented.
--- NOTE | 2025-03-12 14:32 | PCM.HP.STD ---
HPI - General General Date of Admission: 03/12/25 Date of Service: 03/12/25 Chief Complaint: abdominal pain HPI Narrative RICARDA BRYSON, is a 79 F who presents for the evaluation of abdominal pain *BGI established 1.7.22 with history of reflux, esophageal dysphagia s/p dilation and hiatal hernia; well managed with use of Nexium without symptoms for 10 years. History of diverticulitis with constipation that is well managed with Colace, fiber and stress management. OV 4.15.24 Pt states that since her EGD and colonoscopy in April 2023 she has been having issues swallowing and passing gas. Pt states that she is continuing current medication regimen. pt states that she stopped smoking in Jul 2023 and has gained 34lbs since then. Pt states that she began taking Lexapro 20mg in June 2023. OV . pt reports that she is feeling well overall and denies GI symptoms of concern at this time. Pt reports that she stopped smoking Apr 12 2023 - Apr 12 2024, and gained 50lbs; has since started smoking again and reports she has lost 12lbs. 02.07.25 OV She presents with her for exam. She states that while she was visiting her son in [place], [place], she started having severe abdominal pain and just knew it was a diverticulitis flare. She was admitted to [facility] on 12.15.24 for treatment and then again on 01.12.25, to treat diverticulitis. She was given ertapenem, instead of her normal doxycycline to treat the diverticulitis and feels this antibiotic really messed her up. I don't know why they didn't listen to me and just give me the doxycycline. She is following up with her care team as suggested by the [facility]. She reports that she's been nauseous all day, every day, with severe lower and epigastric abdominal pains, and left kidney pain since she left that hospital. She states that she is living on Tums, Tylenol, GasX, and Colace. She reports taking Tylenol every 4 to 6 hours, starting the day with an Excedrin Migraine. [facility] Medical History Constipation GERD (gastroesophageal reflux disease) Diverticulitis UTI (urinary tract infection) Post-menopausal atrophic vaginitis Pelvic and perineal pain Complex renal cyst Wears glasses Cancer Pernicious anemia Hepatitis Hoarseness Syncope Hypotension Dietary restriction History of hiatal hernia History of ulceration History of diverticulitis Smoker Abdominal pain History of edema Depression History of IBS Gastric reflux History of esophageal dilatation Migraine Hyperlipidemia Anxiety Fibromyalgia Vitamin B deficiency Diverticulosis Home Medications ?Medication ?Instructions ?Recorded ?Last Taken ?Type acetaminophen 500 mg capsule 500 mg PO Q6H PRN pain 07/02/21 03/12/25 09:30 History cranberry fruit 400 mg capsule 400 mg PO BID 07/02/21 Unknown History esomeprazole magnesium 40 mg 40 mg PO DAILY 07/02/21 03/12/25 09:30 History capsule,delayed release (Nexium) rosuvastatin 20 mg tablet 20 mg PO DAILY 07/02/21 Unknown History wgqicfx-quwszndqubcnq-bpzuvetu 250 2 tab PO Q6H PRN pain 02/14/23 Unknown History mg-250 mg-65 mg tablet (Excedrin Migraine) Held on 03/12/25. Instructions: Order Changed calcium-mag oxide-vitamin D3 250 1 cap PO BID 02/14/23 Unknown History mg-125 mg-100 unit capsule (Coral Calcium) fluticasone propionate 50 1 spray intranasal Q12H allergy 02/14/23 Unknown History mcg/actuation nasal symptoms spray,suspension (Allergy Relief (fluticasone)) lifitegrast 5 % eye drops in a 1 drp ophthalmic (eye) BID 02/14/23 Unknown History dropperette (Xiidra) potassium 99 mg tablet 99 mg PO QDAY 02/14/23 Unknown History triamcinolone acetonide 0.1 % 1 applic topical DAILY PRN EARS 02/14/23 Unknown History topical cream vitamin b12 1,200 unit IM Q3W 02/14/23 Unknown History escitalopram oxalate 20 mg tablet 20 mg PO QDAY 11/02/23 Unknown History lorazepam 0.5 mg tablet 0.5 mg PO Q6H PRN anxiety 11/02/23 03/12/25 09:30 History cholecalciferol (vitamin D3) 25 2,000 unit PO DAILY 05/30/24 Unknown History mcg (1,000 unit) capsule Lactobacillus acidophilus 10 mg PO DAILY 03/08/25 03/12/25 09:30 History (Acidophilus capsule) docusate sodium 100 mg capsule 100 mg PO BID 03/08/25 Unknown History (Colace) simethicone 80 mg chewable tablet 80 mg PO BID PRN abdominal 03/08/25 Unknown History distention Allergy/AdvReac Type Severity Reaction Status Date / Time amoxicillin Allergy Intermediate unknown Verified 03/12/25 13:34 latex Allergy Intermediate Unknown Verified 03/12/25 13:34 metronidazole (From Flagyl) Allergy Intermediate unknown Verified 03/12/25 13:34 Quinolones Allergy Intermediate unknown Verified 03/12/25 13:34 Sulfa (Sulfonamide Allergy Intermediate unknown Verified 03/12/25 13:34 Antibiotics) fentanyl Allergy Angioedema Verified 03/12/25 13:34 nitrous oxide Allergy Other Verified 03/12/25 13:34 soap Allergy Other Uncoded 03/08/25 13:43 Family History Mother Hypertension Cancer Father Hypertension Sister Cancer Brother Cancer Other Heart disease Skin cancer Surgical History Hx of melanoma excision Hx of colonoscopy H/O bilateral cataract extraction History of hysterectomy History of tonsillectomy History of lumpectomy of left breast Social History Smoking Status: Current every day smoker tobacco type: cigarettes alcohol intake: never substance use type: does not use caffeine: Yes Type: coffee and tea Number of servings: 2 what type of physical activity do you participate in: none and other frequency: other duration: other do you feel safe at home: Yes ROS Constitutional Constitutional: Denies fatigue, fever(s), poor appetite, weight gain or weight loss Gastrointestinal Gastrointestinal: Denies belching, bloating, change in bowel habits, change in stool character, chewing difficulty, coffee ground emesis, constipation, cramping, diarrhea, dyspepsia, dysphagia, early satiety, excessive flatus, fecal incontinence, heartburn, hematemesis, hematochezia, hemorrhoids, loose stools, melena, nausea, odynophagia, rectal bleeding, tenesmus, vomiting or weight changes Vital Signs Vital Signs Vital Signs: 03/12/25 13:35 03/12/25 13:35 Temperature 98.1 F Temperature Source Temporal Pulse Rate 69 Respiratory Rate 18 Respiratory Pattern Irregular Blood Pressure 133/85 H Blood Pressure Mean 101 Blood Pressure Source Monitor Blood Pressure Position Semi-Fowlers Blood Pressure Location Left Arm Pulse Ox 98 Oxygen Delivery Method Room Air Weight Weight: 169 lb 1.513 oz Body Mass Index (BMI) 25.7 Physical Exam Const alert, oriented x3, no apparent distress and healthy appearing General Appearance: cooperative GI normal to inspection, nondistended, normoactive bowel sounds, soft to palpation, non-tender and non-distended Percussion: normal to percussion Rectal Exam: deferred Assessment & Plan Assessment/Plan (1) Abdominal pain: PLAN: Plan Assessment and Plan Assessment and Plan (1) Diverticula, colon: Status: Acute Orders: Orders Abdomen/Pelvis WITH Contrast Today K57.30 - Diverticulosis of large intestine without perforation or abscess without bleeding Medications: New sucralfate 1 g PO QAC 21 tabs 0RF 1 week Plan RICARDA BRYSON, is a 79 F who presents to the office today for FU. Discussed care plan with her and her . Epigastric abdominal pain is most likely gastritis due to medications. She states I'll keep a stack of your orders, but I'm not getting anything done until I've seen all of my providers. And then I'll do everything at once at [place]. There's no way I'm ever doing another colonoscopy, but I'll have the upper scope. schedule EGD sucralfate 1gm PO QAC, take 1hr after other medications or wait [address] abd/pelvis w/IV and PO contrast office FU 2wks after EGD
--- NOTE | 2025-03-12 14:58 | OP.PROVAT_ITS ---
03/12/2025 Deena Kwon Md Re : Upper GI endoscopy procedure for Shanda Young Dear Doyle This procedure was performed on Wednesday, March 12, 2025. My impressions and recommendations are as follows: Impressions : - Non-obstructing Schatzki ring. - Chronic gastritis. Biopsied. - No gross lesions in the entire examined duodenum. Recommendations : - Discharge patient to home. - Resume previous diet. - Continue present medications. - Await pathology results. My findings are described in the full procedure note, which is enclosed. If I can be of further assistance, please feel free to contact me at . Sincerely, Marui Macedo, 03/12/2025 2:58:04 PM This report has been signed electronically.
--- NOTE | 2025-03-12 14:58 | OP.EGD_ITS ---
Patient Name: Shanda Young Procedure Date: 03/12/2025 2:28 PM Date of : 1945 Age: 79 Procedure: Upper GI endoscopy Indications: Epigastric abdominal pain, Abdominal pain in the left upper quadrant, Abdominal pain in the left lower quadrant Providers: Mauri Macedo DO Referring MD: Deena Kwon Md Medicines: Monitored Anesthesia Care Patient Profile: This is a 79 year old female. Refer to note in patient chart for documentation of history and physical. Patient has symptoms of acute left upper quadrant abdominal pain and acute left lower quadrant abdominal pain. Complications: No immediate complications. Procedure: Pre-Anesthesia Assessment: - Prior to the procedure, a History and Physical was performed, and patient medications and allergies were reviewed. The patient is competent. The risks and benefits of the procedure and the sedation options and risks were discussed with the patient. All questions were answered and informed consent was obtained. Patient identification and proposed procedure were verified by the physician in the pre-procedure area. Mental Status Examination: alert and oriented. Airway Examination: normal oropharyngeal airway and neck mobility. Respiratory Examination: clear to auscultation. CV Examination: normal. Prophylactic Antibiotics: The patient does not require prophylactic antibiotics. Prior Anticoagulants: The patient has taken no anticoagulant or antiplatelet agents except for NSAID medication. ASA Grade Assessment: II - A patient with mild systemic disease. After reviewing the risks and benefits, the patient was deemed in satisfactory condition to undergo the procedure. The anesthesia plan was to use monitored anesthesia care (MAC). Immediately prior to administration of medications, the patient was re-assessed for adequacy to receive sedatives. The heart rate, respiratory rate, oxygen saturations, blood pressure, adequacy of pulmonary ventilation, and response to care were monitored throughout the procedure. The physical status of the patient was re-assessed after the procedure. After obtaining informed consent, the endoscope was passed under direct vision. Throughout the procedure, the patient's blood pressure, pulse, and oxygen saturations were monitored continuously. The Endoscope was introduced through the mouth, and advanced to the second part of duodenum. The upper GI endoscopy was accomplished without difficulty. The patient tolerated the procedure well. Scope In: 2:46:29 PM Scope Out: 2:49:35 PM Total Procedure Duration Time 0 hours 3 minutes 6 seconds Findings: A non-obstructing Schatzki ring was found at the gastroesophageal junction. Localized mild inflammation characterized by granularity was found in the gastric antrum. Biopsies were taken with a cold forceps for histology. Verification of patient identification for the specimen was done. Biopsies were taken with a cold forceps for Helicobacter pylori testing. Verification of patient identification for the specimen was done. Estimated blood loss was minimal. No gross lesions were noted in the entire examined duodenum. Impression: - Non-obstructing Schatzki ring. - Chronic gastritis. Biopsied. - No gross lesions in the entire examined duodenum. Recommendation: - Discharge patient to home. - Resume previous diet. - Continue present medications. - Await pathology results. Procedure Code(s): --- Professional --- 29194, Esophagogastroduodenoscopy, flexible, transoral; with biopsy, single or multiple CPT copyright 2021 [employer]. All rights reserved. The codes documented in this report are preliminary and upon poultry culler review may be revised to meet current compliance requirements. Mauri Macedo DO 03/12/2025 2:58:04 PM This report has been signed electronically. Number of Addenda: 0 Note Initiated On: 03/12/2025 2:28 PM
--- NOTE | 2025-03-12 15:05 | PCM.POST.ANE ---
Anesthesia: Postop Eval I Current Vital Signs Temperature: 97 F Pulse Rate: 56 Blood Pressure: 92/57 Respiratory Rate: 16 Pulse Ox: 98 Oxygen Delivery Method: Room Air Assessment Airway patent: Yes Spontaneous unlabored respirations: Yes Mental status: Asleep nausea: No Vomiting: No Anesthesia Complication: No Fluid Hydration Crystalloid volume administer (ml): 300 Total IV fluid infused: 300 Progress Note Anesthesia document: Postop Eval 1 completed: Yes
--- NOTE | 2025-03-12 17:03 | PCM.POSTANE2 ---
Anesthesia Postop Eval I Sum Postop Eval Completion status Anesthesia document: Postop Eval 1 completed: Yes Anesthesia Postop Eval I Summary Anesthesia Postop Eval I Summary: Anesthesia Postop Eval I: Assessment Summary Airway patent Yes 03/12/25 15:07 [email or web address] Spontaneous unlabored Yes 03/12/25 15:07 [email or web address] respirations Mental status Asleep 03/12/25 15:07 [email or web address] nausea No 03/12/25 15:07 [email or web address] Vomiting No 03/12/25 15:07 [email or web address] Anesthesia Postop Eval I: Fluid Summary Crystalloid volume administer 300 03/12/25 15:07 [email or web address] (ml) Colloids volume administered ( ml) Blood Product volume administered (ml) Total IV fluid infused 300 03/12/25 15:07 [email or web address] Anesthesia Postop Eval I: Summary Notes Anesthesia Complication No 03/12/25 15:07 [email or web address] Anesthesia Complication Comment: Post-operative progress note Anesthesia: Postop Eval II Evaluation Mental status: Awake and Calm Pain Level: 0 nausea: No Vomiting: No Complications Anesthesia Complication: No
--- OUTSIDE RECORDS SUMMARY | 2025-03-12 22:01 | XMS RPT_ITS | CCD ---
Author Organization [facility] Care Team Providers Care Software Sales Consultant Name Role Phone Asim Mobley Attending Unavailable Asim Mobley Admitting Unavailable Opal Arreguin Primary Care Unavailable Asim Mobley Attending Unavailable Opal Arreguin Referring Unavailable Opal Arreguin Primary Care Unavailable Asim Mobley Admitting Unavailable Dr. Frandy Kwon Primary Care Provider Dr. Frandy Kwon Referring Provider Dr. Jamar Melvin Attending Provider Dr. Chris Macedo Attending Provider Dr. Jamar Melvin Referring Provider Dr. Jamar Melvin Other Provider Dr. Mario Wetzel Attending Provider Dr. Frandy Kwon Primary Care Provider [phone] Dr. Frandy Kwon Referring Provider Dr. Jamar Melvin Attending Provider Dr. Chris Macedo Attending Provider Dr. Jamar Melvin Referring Provider Dr. Jamar Melvin Other Provider Dr. Mario Wetzel Attending Provider Dr. Chris Macedo Other Provider Dr. Frandy Kwon MD Primary Care Provider Dr. Nelly Don MD Attending Provider Dr. Frandy Kwon MD Referring Provider Nabila Albarran Attending Provider [phone] FRANDY KWON MD Consulting Unavailable FRANDY KWON MD Attending Unavailable FRANDY KWON MD Admitting Unavailable FRANDY KWON MD Primary Care Unavailable PROVIDER, UNKNOWN Consulting Unavailable PROVIDER, UNKNOWN Consulting Unavailable FRANDY KWON MD Consulting Unavailable DUNIA AMBRIZ MD Admitting Unavailable DUNIA AMBRIZ MD Primary Care Unavailable DUNIA AMBRIZ MD Attending Unavailable FRANDY KWON MD Referring Unavailable PROVIDER, UNKNOWN Consulting Unavailable PROVIDER, UNKNOWN Consulting Unavailable FRANDY KWON MD Consulting Unavailable FRANDY KWON MD Attending Unavailable FRANDY KWON MD Admitting Unavailable FRANDY KWON MD Primary Care Unavailable PROVIDER, UNKNOWN Consulting Unavailable PROVIDER, UNKNOWN Consulting Unavailable FRANDY KWON MD Consulting Unavailable BIBIANA BRITO Admitting Unavailable BIBIANA BRITO Primary Care Unavailable BIBIANA BRITO Attending Unavailable PROVIDER, UNKNOWN Consulting Unavailable PROVIDER, UNKNOWN Consulting Unavailable CHRIS MACEDO Admitting Unavailable CHRIS MACEDO Primary Care Unavailable CHRIS MACEDO Attending Unavailable FRANDY KWON MD Consulting Unavailable FRANDY KWON MD Attending Unavailable FRANDY KWON MD Admitting Unavailable FRANDY KWON MD Primary Care Unavailable PROVIDER, UNKNOWN Consulting Unavailable PROVIDER, UNKNOWN Consulting Unavailable Frandy Kwon Referring Unavailable Kalj carlosiFrandy Primary Care Unavailable aNbila Kent Attending Unavailable Frandy Kwon Referring Unavailable Frandy Kwon Primary Care Unavailable Nelly Don Attending Unavailable Frandy Kwon Referring Unavailable Chris Macedo Attending Unavailable Frandy Kwon Primary Care Unavailable Frandy Kwon Referring Unavailable Kalisetti, Frandy Primary Care Unavailable Chris Macedo Attending Unavailable Frandy Kwon Referring Unavailable Bibiana Brito NP Attending Unavailable Frandy Kwon Primary Care Unavailable Dr. Chris Macedo DO Attending Provider Dr. Chris Macedo DO Other Provider Allergies Allergy Classification Reported Allergen(s) Allergy Type Date of Onset Reaction(s) Facility (1 source) Clindamycin; Translations: [clindamycin] Drug Allergy [facility] Repository (10 sources) Latex; Translations: [Latex] Propensity to adverse reactions to drug (disorder) 2 Unknown [facility] Repository (2 sources) metroNIDAZOLE; Translations: [Flagyl] Drug Allergy [facility] Repository (1 source) Penicillin; Translations: [penicillin] Drug Allergy [facility] Repository (1 source) Sulfonamides (Antibiotic); Translations: [sulfa drugs] Propensity to adverse reactions to drug (disorder) [facility] Repository (1 source) valACYclovir; Translations: [valACYclovir] Drug Allergy [facility] Repository (1 source) quinolone antibiotics; Translations: [quinolone antibiotics] Propensity to adverse reactions to drug (disorder) [facility] Repository (7 sources) Amoxicillin Drug Allergy 2 unknown [facility] (7 sources) metroNIDAZOLE Drug Allergy 2 unknown [facility] (7 sources) Quinolones (Antibiotic) Allergy to substance 2 unknown [facility] (7 sources) Sulfonamides (Antibiotic) Allergy to substance 2 unknown [facility] (6 sources) fentaNYL Drug Allergy 3 Angioedema [facility] (6 sources) Nitrous Oxide Drug Allergy 3 Other [facility] (7 sources) soap; Translations: [soap] Allergy to substance 3 Other [facility] Comment on above: DIAL (1 source) fentaNYL Drug Allergy [facility] Repository (1 source) Penicillin Drug Allergy [facility] Repository (1 source) Quinolones (Antibiotic) Drug allergy (disorder) [facility] Repository (1 source) Sulfonamides (Antibiotic) Drug allergy (disorder) [facility] Repository (1 source) dial soap Drug allergy (disorder) [facility] Repository (1 source) Amoxicillin Drug Allergy 5 [facility] Repository (1 source) fentaNYL Drug Allergy 5 [facility] Repository (1 source) metroNIDAZOLE Drug Allergy 5 [facility] Repository (1 source) Nitrous Oxide Drug Allergy 5 [facility] Repository (1 source) Quinolones (Antibiotic) Drug allergy (disorder) 5 [facility] Repository (1 source) Sulfonamides (Antibiotic) Drug allergy (disorder) 5 [facility] Repository Medications Current Medications Medication Drug Class(es) Dates Sig (Normalized) Sig (Original) acetaminophen 500 mg oral capsule (7 sources) Start: 07-02-2021 take 1 capsule by mouth every six hours as needed for pain Acetaminophen 500 mg capsule Active 500 mg PO EVERY 6 HOURS as needed for pain July 02, 2021 1:00am acetaminophen 250 mg / aspirin 250 mg / caffeine 65 mg oral tablet (4 sources) Platelet Aggregation Inhibitor, Nonsteroidal Anti-inflammatory Drug, Central Nervous System Stimulant, Methylxanthine Start: 02-14-2023 Aspirin-Acetaminop hen-Caffeine (Excedrin Migraine) 250-250-65 mg tablet Active 2 {tbl} PO ONCE February 14, 2023 12:00am Aspirin-Acetaminoph en-Caffeine (Excedrin Migraine) 250-250-65 mg tablet (2 sources) Start: 02-14-2023 Aspirin-Acetaminop hen-Caffeine (Excedrin Migraine) 250-250-65 mg tablet Active 2 {tbl} PO EVERY 6 HOURS as needed for pain February 14, 2023 12:00am On Hold: Order Changed Start: 02-14-2023 Aspirin-Acetam inophen-Caffeine (Excedrin Migraine) 250-250-65 mg tablet Active 2 {tbl} PO EVERY 6 HOURS as needed for pain February 14, 2023 12:00am Calcium-Mag Oxide-Vitamin D3 (Coral Calcium) 250-125-100 mg-mg-unit capsule (13 sources) Start: 02-14-2023 Calcium-Mag Ox simona-Vitamin D3 (Coral Calcium) 250-125-100 mg-mg-unit capsule Active 1 NMA PO TWICE A DAY February 14, 2023 11:48am Start: 02-14-2023 Calcium-Mag Ox simona-Vitamin D3 (Coral Calcium) 250-125-100 mg-mg-unit capsule Active 1 NMA PO DAILY February 14, 2023 11:48am Start: 02-14-2023 take 1 capsule by [facility] once daily Calcium-Mag Oxide-Vitamin D3 (Coral Calcium) 250-125-100 mg-mg-unit capsule Active 1 CAP PO DAILY February 14, 2023 10:48am Start: 02-14-2023 take 1 capsule by mo ut once daily Calcium-Mag Oxide-Vitamin D3 (Coral Calcium) 250-125-100 mg-mg-unit capsule Active 1 CAP PO DAILY February 14, 2023 11:48am Start: 07-02-2021 End: 02-14-2023 Calcium-Mag Oxide-Vitamin D3 (Coral Calcium) 250-125-100 mg-mg-unit capsule Discontinued 1 NMA PO TWICE A DAY July 02, 2021 1:00am February 14, 2023 11:51am Start: 07-02-2021 End: 02-14-2023 take 1 capsule by mouth twice daily Calcium-Mag Oxide-Vitamin D3 (Coral Calcium) 250-125-100 mg-mg-unit capsule Discontinued 1 CAP PO TWICE A DAY July 02, 2021 12:00am February 14, 2023 10:51am Start: 07-02-2021 End: 02-14-2023 take 1 capsule by mouth twice daily Calcium-Mag Oxide-Vitamin D3 (Coral Calcium) 250-125-100 mg-mg-unit capsule Discontinued 1 CAP PO TWICE A DAY July 02, 2021 1:00am February 14, 2023 11:51am Start: 07-02-2021 take 1 capsule by [facility] twice daily Calcium-Mag Oxide-Vitamin D3 (Coral Calcium) 250-125-100 mg-mg-unit capsule Active 1 CAP PO TWICE A DAY July 02, 2021 1:00am cholecalciferol 0.025 mg oral capsule (9 sources) Vitamin D Start: 05-30-2024 take 1 capsule by mouth once daily Cholecalciferol (Vitamin D3) 25 mcg (1,000 unit) capsule Active 2000 U PO DAILY May 30, 2024 3:30pm Start: 02-14-2023 End: 05-30-2024 take 1 capsule by mouth once daily Cholecalciferol (Vitamin D3) 25 mcg (1,000 unit) capsule Discontinued 25 ug PO DAILY February 14, 2023 12:00am May 30, 2024 3:31pm Cranberry Fruit (7 sources) Non-Standardized Food Allergenic Extract, Non-Standardized Plant Allergenic Extract Start: 07-02-2021 take 1 capsule by mouth twice daily Cranberry Fruit 400 mg capsule Active 400 mg PO TWICE A DAY July 02, 2021 1:00am administer with a meal Start: 07-02-2021 take 1 capsule by mo uth once daily Cranberry Fruit 400 mg capsule Active 400 mg PO DAILY July 02, 2021 1:00am administer with a meal Start: 07-02-2021 take 400 mg by mouth once kelin y Cranberry Active 400 MG PO DAILY July 02, 2021 12:00am administer with a meal Start: 07-02-2021 take 400 mg by mouth once kelin y Cranberry Active 400 MG PO DAILY July 02, 2021 1:00am administer with a meal docusate sodium 100 mg oral capsule (2 sources) Start: 03-08-2025 take 1 capsule by mouth twice daily Docusate Sodium (Colace) 100 mg capsule Active 100 mg PO TWICE A DAY March 08, 2025 12:00am escitalopram 20 mg oral tablet (3 sources) Serotonin Reuptake Inhibitor Start: 11-02-2023 take 1 tablet by mouth once daily Escitalopram Oxalate 20 mg tablet Active 20 mg PO daily November 02, 2023 12:00am esomeprazole 40 mg delayed release oral capsule (7 sources) Proton Pump Inhibitor Start: 07-02-2021 take 1 capsule by mouth once daily Esomeprazole Magnesium (Nexium) 40 mg capsule,delayed release(DR/EC) Active 40 mg PO DAILY July 02, 2021 1:00am fluticasone propionate 0.05 mg/actuat metered dose nasal spray (13 sources) Corticosteroid Start: 02-14-2023 take 50 ug nasal route every twelve hours Fluticasone Propionate (Allergy Relief (Fluticasone)) 50 mcg/actuation spray,suspension Active 1 NMA INTRANASAL Q12H February 14, 2023 11:49am allergy symptoms administer into each nostril Start: 02-14-2023 take 50 ug nasal rou te twice daily as needed Fluticasone Propionate (Allergy Relief (Fluticasone)) 50 mcg/actuation spray,suspension Active 1 NMA INTRANASAL TWICE A DAY as needed for allergy symptoms February 14, 2023 11:49am administer into each nostril Start: 02-14-2023 take 1 spray(s) nasa l route twice daily Fluticasone Propionate (Allergy Relief (Fluticasone)) 50 mcg/actuation spray,suspension Active 1 SPRAY INTRANASAL TWICE A DAY February 14, 2023 10:49am administer into each nostril Start: 07-02-2021 End: 02-14-2023 take 50 ug nasal route once daily Fluticasone Propionate (Allergy Relief (Fluticasone)) 50 mcg/actuation spray,suspension Discontinued 1 NMA INTRANASAL DAILY July 02, 2021 1:00am February 14, 2023 11:51am administer into each nostril Start: 07-02-2021 End: 02-14-2023 take 1 spray(s) nasal route once daily Fluticasone Propionate (Allergy Relief (Fluticasone)) 50 mcg/actuation spray,suspension Discontinued 1 SPRAY INTRANASAL DAILY July 02, 2021 12:00am February 14, 2023 10:51am administer into each nostril lactobacillus acidophilus 10 mg oral tablet (2 sources) Start: 03-08-2025 take 1 capsule by mouth once daily Lactobacillus Acidophilus (Acidophilus) capsule Active 10 mg PO DAILY March 08, 2025 12:00am lifitegrast 50 mg/ml ophthalmic solution (6 sources) Lymphocyte Function-Associated Antigen-1 Antagonist Start: 02-14-2023 Lifitegrast (Xiidra) 5 % dropperette Active 1 NMA OPHTHALMIC TWICE A DAY February 14, 2023 12:00am administer approximately 12 hours apart LORazepam 0.5 mg oral tablet (9 sources) Benzodiazepine Start: 11-02-2023 take 1 tablet by mouth every six hours as needed for anxiety Lorazepam 0.5 mg tablet Active 0.5 mg PO EVERY 6 HOURS as needed for anxiety November 02, 2023 12:00am Start: 02-14-2023 End: 04-29-2023 take 1-2 tablets by mouth once daily, then take 2 tablets by mouth once daily Lorazepam (Ativan) 0.5 mg tablet Discontinued 0.5 mg PO DAILY as needed February 14, 2023 12:00am April 29, 2023 1:29pm 1-2 (to be taken before 2 separate days of dental procedure) potassium 99 mg extended release oral tablet (6 sources) Start: 02-14-2023 take 1 tablet by mouth once daily Potassium 99 mg tablet Active 99 mg PO daily February 14, 2023 12:00am rosuvastatin calcium 20 mg oral tablet (7 sources) HMG-CoA Reductase Inhibitor Start: 07-02-2021 take 1 tablet by mouth once daily Rosuvastatin 20 mg tablet Active 20 mg PO DAILY July 02, 2021 1:00am simethicone 80 mg chewable tablet (2 sources) Start: 03-08-2025 take 1 tablet by mouth twice daily as needed Simethicone 80 mg tablet,chewable Active 80 mg PO TWICE A DAY as needed for abdominal distention March 08, 2025 12:00am after meals triamcinolone acetonide 1 mg/ml topical cream (6 sources) Corticosteroid Start: 02-14-2023 Triamcinolone Acetonide 0.1 % cream Active 1 NMA TOPICAL DAILY as needed for EARS February 14, 2023 12:00am vitamin B12 (13 sources) Vitamin B12 Start: 02-14-2023 vitamin b12 Active 1200 U IM every 3 weeks February 14, 2023 12:00am Start: 02-14-2023 vitamin b12 Ac tive 1200 UNIT IM every 3 weeks February 13, 2023 11:00pm Start: 02-14-2023 vitamin b12 Ac tive IM every 3 weeks February 14, 2023 12:00am Start: 07-02-2021 End: 02-14-2023 take 1 capsule by mouth once daily Cyanocobalamin (Vitamin B-12) 1,000 mcg capsule Discontinued 1000 ug PO DAILY July 02, 2021 1:00am February 14, 2023 11:52am Completed/Discontinued Medications Medication Drug Class(es) Dates Sig (Normalized) Sig (Original) [id number] 200 actuat albuterol 0.09 mg/actuat metered dose inhaler (6 sources) beta2-Adrenergic Agonist Start: 02-14-2023 End: 04-29-2023 Albuterol Sulfate 90 mcg/actuation HFA aerosol inhaler Discontinued 2 NMA INHALATION EVERY 6 HOURS as needed February 14, 2023 12:00am April 29, 2023 1:28pm Start: 02-14-2023 End: 04-29-2023 take 1 puff(s) by inhalation every six hours Albuterol Sulfate Discontinued 2 PUFF INHALATION EVERY 6 HOURS February 13, 2023 11:00pm April 29, 2023 12:28pm ascorbic acid 500 mg oral capsule (7 sources) Vitamin C Start: 07-02-2021 End: 02-14-2023 Ascorbic Acid (Vitamin C) 50 0 mg capsule Discontinued mg PO July 02, 2021 1:00am February 14, 2023 11:52am Start: 07-02-2021 End: 02-14-2023 Ascorbic Acid (Vitamin C) Di scontinued MG PO July 02, 2021 12:00am February 14, 2023 10:52am bisacodyl 5 mg delayed release oral tablet (7 sources) Stimulant Laxative Start: 07-06-2021 End: 02-14-2023 Bisacodyl (Bisa-Lax (Bisacodyl)) 5 mg tablet,delayed release (DR/EC) Discontinued 20 mg PO ONCE 4 0 July 06, 2021 1:00am February 14, 2023 11:52am take as directed for bowel prep cycloSPORINE 0.5 mg/ml ophthalmic suspension (7 sources) Calcineurin Inhibitor Immunosuppressant Start: 07-02-2021 End: 02-14-2023 Cyclosporine (Restasis) 0.05 % dropperette Discontinued 1 NMA OPHTHALMIC Q12H July 02, 2021 1:00am February 14, 2023 12:00pm Garlic (7 sources) Non-Standardized Food Allergenic Extract Start: 07-02-2021 End: 02-14-2023 take 1 capsule by mouth after mealtime Garlic 1,000 mg capsule Discontinued 1000 mg PO after meals July 02, 2021 1:00am February 14, 2023 12:00pm Start: 07-02-2021 End: 02-14-2023 take 1000 mg by mouth after mealtime Garlic Discontinued 1000 MG PO after meals July 02, 2021 12:00am February 14, 2023 11:00am Start: 07-02-2021 End: 02-14-2023 take 1000 mg by mouth after mealtime Garlic Discontinued 1000 MG PO after meals July 02, 2021 1:00am February 14, 2023 12:00pm Start: 07-02-2021 take 1000 mg by mout h after mealtime Garlic Active 1000 MG PO after meals July 02, 2021 1:00am loratadine 10 mg oral tablet (6 sources) Start: 02-15-2023 End: 03-08-2025 take 1 tablet by mouth once daily as needed Loratadine (Claritin) 10 mg tablet Discontinued 10 mg PO DAILY as needed for allergy symptoms February 15, 2023 12:00am March 08, 2025 10:38am polyethylene glycol 3350 36262 mg powder for oral solution (7 sources) Osmotic Laxative Start: 07-06-2021 End: 02-14-2023 Polyethylene Glycol 3350 (Miralax) 17 gram/dose powder Discontinued 17 g PO DAILY 238 0 July 06, 2021 1:00am February 14, 2023 12:01pm take as directed for bowel prep psyllium 400 mg oral capsule (7 sources) Start: 07-02-2021 End: 02-14-2023 Psyllium Husk (Daily Fiber) 0.4 gram capsule Discontinued 0.4 g PO DAILY July 02, 2021 1:00am February 14, 2023 12:01pm sucralfate 1000 mg oral tablet (3 sources) Aluminum Complex Start: 02-07-2025 End: 02-14-2025 take 1 tablet by mouth before mealtime Sucralfate 1 gram tablet Discontinued 1 g PO before meals 7 0 February 07, 2025 12:00am February 13, 2025 12:00am February 14, 2025 12:06am valACYclovir 500 mg oral tablet (7 sources) Herpesvirus Nucleoside Analog DNA Polymerase Inhibitor, Herpes Simplex Virus Nucleoside Analog DNA Polymerase Inhibitor, Herpes Zoster Virus Nucleoside Analog DNA Polymerase Inhibitor Start: 07-02-2021 End: 02-14-2023 take 1 tablet by mouth once daily Valacyclovir 500 mg tablet Discontinued 500 mg PO DAILY July 02, 2021 1:00am February 14, 2023 12:01pm zolpidem tartrate 10 mg oral tablet (7 sources) gamma-Aminobutyric Acid-ergic Agonist Start: 07-02-2021 End: 02-14-2023 Zolpidem (Ambien) 10 mg tablet Discontinued PO July 02, 2021 1:00am February 14, 2023 12:01pm Problems Active Problems Problem Classification Problem Date Documented Da te Episodic/Chronic Abdominal hernia (10 sources) Hiatal hernia; Translations: [Diaphragmatic hernia without obstruction or gangrene] 07-03-2021 Episodic Abdominal pain (8 sources) Left lower quadrant pain; Translations: [Pelvic and perineal pain] Onset: 02-13-2025 Episodic Comment on above: CHRONIC SINCE 11/2024 Allergic reactions (5 sources) Allergy status to narcotic agent status; Translations: [Allergy status to penicillin] Onset: 02-13-2025 Episodic Anxiety disorders (1 source) Anxiety disorder, unspecified; Translations: [Anxiety disorder, unspecified] Onset: 02-13-2025 Chronic Biliary tract disease (1 source) Other specified diseases of gallbladder; Translations: [Other specified diseases of gallbladder] Onset: 02-13-2025 Episodic Chronic obstructive pulmonary disease and bronchiectasis (7 sources) Mild chronic obstructive pulmonary disease; Translations: [Chronic obstructive pulmonary disease, unspecified] 04-28-2023 Chronic Comment on above: FEV1 90% Deficiency and other anemia (7 sources) Pernicious anemia; Translations: [Vitamin B12 deficiency anemia due to intrinsic factor deficiency] 07-03-2021 Episodic Deficiency and other anemia (3 sources) Vitamin B12 deficiency anemia due to intrinsic factor deficiency; Translations: [Pernicious anemia] 04-08-2023 Episodic Disorders of lipid metabolism (1 source) Hyperlipidemia, unspecified; Translations: [Hyperlipidemia, unspecified] Onset: 02-13-2025 Chronic Diverticulosis and diverticulitis (16 sources) Diverticular disease; Translations: [Diverticulosis of intestine, part unspecified, without perforation or abscess without bleeding] Onset: 02-07-2025 07-03-2021 Chronic Esophageal disorders (5 sources) Esophageal varices; Translations: [Esophageal varices without bleeding] Onset: 02-13-2025 05-10-2023 Chronic Essential hypertension (1 source) Essential (primary) hypertension; Translations: [Essential (primary) hypertension] Onset: 02-13-2025 Chronic Hepatitis (3 sources) Finding of Hepatitis C status; Translations: [Unspecified viral hepatitis C without hepatic coma] 08-22-2023 Episodic Other gastrointestinal disorders (1 source) Diarrhea, unspecified; Translations: [Diarrhea, unspecified] Onset: 03-07-2025 Episodic Other gastrointestinal disorders (2 sources) Constipation; Translations: [Constipation, unspecified] 03-10-2025 Episodic Other liver diseases (1 source) Unspecified cirrhosis of liver; Translations: [Unspecified cirrhosis of liver] Onset: 05-17-2024 Chronic Other lower respiratory disease (6 sources) Dyspnea; Translations: [Dyspnea, unspecified] 02-15-2023 Episodic Other lower respiratory disease (6 sources) Lung mass; Translations: [Other nonspecific abnormal finding of lung field] 02-15-2023 Episodic Comment on above: Suspect scarring Other lower respiratory disease (3 sources) Dyspnea, unspecified; Translations: [Other respiratory abnormalities] 02-15-2023 Episodic Other lower respiratory disease (5 sources) Other nonspecific abnormal finding of lung field; Translations: [Swelling, mass, or lump in chest] 02-15-2023 Episodic Residual codes; unclassified (1 source) Acquired absence of both cervix and uterus; Translations: [Acquired absence of both cervix and uterus] Onset: 02-13-2025 Episodic Substance-related disorders (5 sources) Cigarette smoker ; Translations: [Nicotine dependence, cigarettes, uncomplicated] Onset: 05-30-2024 05-30-2024 Chronic Past or Other Problems Problem Classification Problem Date Documented Da te Episodic/Chronic Nutritional deficiencies (1 source) Deficiency of other specified B group vitamins; Translations: [Deficiency of other specified B group vitamins] Onset: 05-17-2024 Episodic Results Test Name Value Interpretation Reference Range Facility Laboratory - Chemistry and C hemistry - challengeOrdered By: Nelly Don on 03-08-2025 Bilirubin Ql (U) Negative [facility] Glucose Ql (U) Negative [facility] Ketones Ql (U) Negative [facility] pH (U) 6 [pH] [facility] Specific gravity (U) [Rel density] 1.010 [facility] Urobilinogen (U) [Mass/Vol] 0.3397101 mg/dL [facility] Laboratory - Hematology and Cell countsOrdered By: Nelly Don on 03-08-2025 Hemoglobin Ql (U) Negative [facility] Laboratory - UrinalysisOrder ed By: Nelly Don on 03-08-2025 Nitrite Ql (U) Negative [facility] Protein Ql (U) Trace [facility] MR/BMSForeign 03-08-2025 MR/BMSMONISHA [facility] [address], [address] [place] [address] OFFICE VISIT Date of Service: 03/08/25 MR#: [id number] Acct: [id number] Name: RICARDA BRYSON Rep #: [id number] : 1945 Provider: Dr. Nelly Degroot i, MD Age/Sex: 79/F Location[place] [email or web address] Status: Signed Intake Vital Signs 05/30/24 07:48 03/08/25 13:44 Height 5 ft 8 in 5 ft 8 in Weight: 192 lb BMI 29.2 BP 105/77 Pulse 72 Intake Visit Reasons: cyst Chief Complaint: abdominal pain- hospital follow up Edge Worker Required: No Accompanied by: Self Is patient in pain?: Yes Allergies amoxicillin Allergy (Intermediate, Verified 03/08/25 13:43) unknown latex Allergy (Intermediate, Verified 03/08/25 13:43) Unknown metronidazole (From Flagyl) Allergy (Intermediate, Verified 03/08/25 13:43) unknown Quinolones Allergy (Intermediate, Verified 03/08/25 13:43) unknown Sulfa (Sulfonamide Antibiotics) Allergy (Intermediate, Verified 03/08/25 13:43) unknown fentanyl Allergy (Verified 03/08/25 13:43) Angioedema nitrous oxide Allergy (Verified 03/08/25 13:43) Other soap Allergy (Uncoded 03/08/25 13:43) Other Medications ???Medication ???Instructions ???Recorded ???Confirmed ???Type acetaminophen 500 mg capsule 500 mg PO Q6H PRN pain 07/02/21 History cranberry fruit 400 mg capsule 400 mg PO BID 07/02/21 03/08/25 Hi story esomeprazole magnesium 40 mg 40 mg PO DAILY 07/02/21 03/08/25 H istory capsule,delayed release (Nexium) rosuvastatin 20 mg tablet 20 mg PO DAILY 07/02/21 03/08/25 H istory aspirin-acetaminophen -caffeine 250 2 tab PO Q6H PRN pain 02/14/23 0 03/08/25 History mg-250 mg-65 mg tablet (Excedrin Migraine) calcium-mag oxide-vitamin D3 250 1 cap PO BID 02/14/23 03/08/25 His tory mg-125 mg-100 unit capsule (Coral Calcium) fluticasone propionate 50 1 spray intranasal Q12H allergy 03/08/25 History mcg/actuation nasal symptoms spray,suspension (Allergy Relief (fluticasone)) lifitegrast 5 % eye drops in a 1 drp ophthalmic (eye) BID 3 03/08/25 History dropperette (Xiidra) potassium 99 mg tablet 99 mg PO QDAY 02/14/23 03/08/25 Hi story triamcinolone acetonide 0.1 % 1 applic topical DAILY PRN EARS 03/08/25 History topical cream vitamin b12 1,200 unit IM Q3W 02/14/23 5 History escitalopram oxalate 20 mg tablet 20 mg PO QDAY 11/02/23 03/08/25 H istory lorazepam 0.5 mg tablet 0.5 mg PO Q6H PRN anxiety 11/02/23 03/08/25 History cholecalciferol (vitamin D3) 25 2,000 unit PO DAILY 05/30/2403/08 History mcg (1,000 unit) capsule Lactobacillus acidophilus 10 mg PO DAILY 03/08/25 03/08/25 H istory (Acidophilus capsule) docusate sodium 100 mg capsule 100 mg PO BID 03/08/25 03/08/25 Hi story (Colace) simethicone 80 mg chewable tablet 80 mg PO BID PRN abdominal 03/08/25 History distention Have you fallen in the past year?: No Nurse's Note: has been sick since november. Has been in the hospital for a month- diverticulitis flare up. Has brought the records Now has abdominal pain and is having trouble figuring out why. Right kindney cyst [facility] Medical History (Updated 03/10/25 @ 19:[address] Nelly Don MD) Constipation GERD (gastroesophageal reflux disease) Diverticulitis UTI (urinary tract infection) Post-menopausal atrophic vaginitis Pelvic and perineal pain Complex renal cyst Wears glasses Cancer Pernicious anemia Hepatitis Hoarseness Syncope Hypotension Dietary restriction History of hiatal hernia History of ulceration History of diverticulitis Smoker Abdominal pain History of edema Depression History of IBS Gastric reflux History of esophageal dilatation Migraine Hyperlipidemia Anxiety Fibromyalgia Vitamin B deficiency Diverticulosis Surgical History (Updated 03/08/25 @ 10:56 by Sherrill Mayer) Hx of melanoma excision Hx of colonoscopy H/O bilateral cataract extraction History of hysterectomy History of tonsillectomy History of lumpectomy of left breast Family History (Updated 03/08/25 @ 12:31 by Lyn Garcia) Mother Hypertension Cancer Father Hypertension Sister Cancer Brother Cancer Other Heart disease Skin cancer Social History (Updated 03/08/25 @ 12:32 by Lyn Garcia) Smoking Status: Current every day smoker tobacco type: cigarettes alcohol intake: never substance use type: does not use caffeine: Yes Type: coffee and tea Number of servings: 2 what type of physical activity do you participate in: none and other frequency: other duration: other do you feel safe at home: Yes HPI HPI Urology Chief Complaint: abdominal pain- hospital follow up Details: RICARDA BRYSON, is a 79 F. She is struggling with lots of problems. Di (more content not included)... Normal [facility] No Panel InformationOrdered By: Nelly Don on 03-08-2025 Urine Leukocytes Negatve [facility] Urine Non-Hemolyzed Blood Negative [facility] C DIFF COMPLETEon 03-07-2025 C DIFF COMPLETE C DIFF COMPLETE 0{ C-DIFF TOXIN _NEGATIVE__ (NRL: NEGATIVE ) 03/07/25.1859.SO . C-DIFF AG NEGATIVE INTERNAL NEG QC PASS INTERNAL POS QC PASS EXTERNAL QC DONE? YES INTERPRETATION: POSITIVE Ag,POSITIVE Tox = C. Diff is present & producing toxins POSITIVE Ag,NEGATIVE Tox = C. Diff is present NEGATICE Ag,NEGATICE Tox = C. Diff is not present A low percentage of specimens may test negative for antigen but positive for toxin. A fresh specimen should be resumbitted for retesting. 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 Allergies verified and confirmed 5 rights. IV patency 18:55 02/13/2025 mg (NOW x1, HIGH established. IV site checked: no pain, redness, or swelling. IV Jana Almendarez R.N. ALERT flushed thoroughly pre-medication administration. IVP given by Scanned MEDICATION) nurse. Information reviewed with patient including reason for taking this medication and sedative warning. Medication Wastage: 0.5 mg wasted. - 18:56 Jana Almendarez R.N. 19:44 02/13 Medication Response: No adverse reaction. Pain is improving. Symptoms have improved. The patient feels better. (pain 4/10). - 19:44 Opal Murphy R.N. Ondansetron IVP 4 18:51 02/13 Ondansetron IVP 4 mg given via Site# 1. Allergies Given mg (NOW x1) verified and confirmed 5 rights. IV patency established. IV site 18:51 02/13/2025 checked: no pain, redness, or swelling. IV flushed thoroughly Jana Almendarez R.N. pre-medication administration. IVP given by nurse. Information Scanned reviewed with patient including reason for taking this medication. - 18:54 Jana Almendarez R.N. 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 Allergies verified and confirmed 5 rights. Via 19:46 02/13/2025 (NOW x1) IV pump. IV patency established. IV site checked: no pain, redness, Opal Murphy R.N. or swelling. IV flushed thoroughly pre-medication administration. Stopped Information reviewed with patient. - 19:49 Opal Murphy R.N. 20:57 02/13/2025 Opal Murphy R.N. 20:57 02/13 Medication Discontinued: bag #1 infused. Total Scanned amount infused: 1000 mL. IV patency established. IV site checked: no pain, redness, or swelling. IV flushed thoroughly post-medication administration. - 21:12 Opal Murphy R.N. Ertapenem IVPB 1 g 21:02/13 Ertapenem IVPB 1 g started at 100 mL/hr diluted in Started diluted in sodium sodium chloride IVPB 0.9 % Minibag+ 50 mL via Site# 1. Allergies 21:10 02/13/2025 chloride IVPB 0.9 % verified and confirmed 5 rights. Via IV pump. IV patency López Glass R.N. Minibag+ 50 mL at established. IV site checked: no pain, redness, or swelling. IV Stopped 100 mL/hr (NOW x1) flushed thoroughly pre-medication administration. - 21:10 López 21:49 02/13/2025 Pretty Glass R.N. Not Scanned 21:49 02/13 Medication Discontinued: IV infused. Total amount infused: 50 mL. IV patency established. IV site checked: no pain, redness, or swelling. IV flushed thoroughly post-medication administration. - 21:49 Opal Murphy R.N. HYDROmorphone 00:02/14 HYDROmorphone (Dilaudid) IVP 0.5 mg given via Given (Dilaudid) IVP 0.5 Site# 1. Allergies verified and confirmed 5 rights. IV patency 00:02/14/2025 mg (NOW x1, HIGH established. IV site checked: no pain, redness, or swelling. IV Opal Murphy R.N. ALERT flushed thoroughly pre-medication administration. IVP given by Scanned MEDICATION) nurse. Information reviewed with patient. Medication Wastage: 0.5 mg wasted. - 00: Opal Murphy R.N. 01:02/14 Medication Response: No adverse reaction. Pain is improving. - 01:03 Opal Murphy R.N. Nicotine (Nicoderm) 01:02/14 Nicotine (Nicoderm) Patch 21mg/24hr 1 patch given. Given Patch 21mg/24hr 1 Applied to the left upper arm. Allergies verified and confirmed 5 01:02/14/2025 patch (NOW x1) rights. Information reviewed with patient. - 01:03 Opal Murphy, Opal Murphy R.N. R.N. 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 [address] [id number] 02/13/2025 15:44:00 Patient: RICARDA BRYSON Sex: Female : 1945 Age: 79y Disposition: Observation to Med/Surg Disposition Decision Time: 22:02/13/2025 Departure Time: 01:02/14/2025 TRIAGE Arrived by private vehicle. Historian: (patient). Triage time: 16:06 02/13/2025. Acuity: LEVEL 3. Alert. No acute distress. ( December 15 - admitted for diverticulitis in [place]. December 29- admitted to hospital in [place] for diverticulitis again.). SEPSIS SCREEN: NEGATIVE. SIRS criteria negative. No possible sources of infection. -- 16:02/13/25 EDT Corona Naqvi R.N. 16:02/13/25. BP: 136/78 MAP: 97. HR: 70. RR: 16. O2 saturation: 99% Temperature: 97.4 F. Pain level now 7/10. Describes the pain as sharp. -- 16:02/13/25 EDT Corona Naqvi R.N. Chief Complaint: ABDOMINAL PAIN. 16:22 02/13/25. -- 16:02/13/25 EDT Corona Naqvi R.N. Measurements: 16:02/13/25 Wt: 76.7 kg, Ht/Nacho: 68.0 in, BMI: 25.70 -- 16:22 02/13/25 LINAT Corona Naqvi R.N. Medications: amlodipine 5 mg tablet -- 16:24 02/13/25 LINAT Corona Naqvi R.N. sucralfate 1 gram tablet -- 16:24 02/13/25 EDT Corona Naqvi R.N. 1 of 5 Nurse Narrative - RICARDA BRYSON, : 1945, , Nexium 40 mg capsule,delayed release -- 16:24 02/13/25 EDT Corona Naqvi R.N. escitalopram 20 mg tablet -- 16:24 02/13/25 EDT Corona Naqvi R.N. ondansetron 4 mg disintegrating tablet -- 16:24 02/13/25 EDT Corona Naqvi R.N. rosuvastatin 20 mg tablet -- 16:24 02/13/25 EDT Corona Naqvi R.N. cyanocobalamin (vit B-12) 1,000 mcg/mL injection solution: INJECT 1 ML ONCE IN 3 WEEKS -- 16:24 02/13/25 LINAT Corona Naqvi R.N. Xiidra 5 % eye drops in a dropperette -- 16:24 02/13/25 LINAT Corona Naqvi R.N. Allergies: All antibiotics -- 16:11 02/13/25 LINAT Corona Naqvi R.N. Problems: Gastroesophageal Reflux Disease -- 16:42 02/13/25 LINAT Corona Naqvi R.N. Hypercholesterolemia -- 16:42 02/13/25 LINAT Corona Naqvi R.N. Hypertension -- 16:42 02/13/25 LINAT Corona Naqvi R.N. Diverticulitis -- 16:43 02/13/25 LINAT Corona Naqvi R.N. Surgeries: Bladder Surgery -- 16:14 02/13/25 LINAT Corona Naqvi R.N. Hysterectomy -- 16:14 02/13/25 LINAT Corona Naqvi R.N. Lumpectomy of breast -- 16:14 02/13/25 EDT Corona Naqvi R.N. Tonsillectomy Adenoidectomy -- 16:15 02/13/25 LINAT Corona Naqvi R.N. History 16:06 02/13/25. SOCIAL HX: Heavy tobacco smoker (cigarette)- less than 1 pack per day. Never smoker. No alcohol use or drug use. The patient has not traveled outside the [place] Infectious disease exposure: No infectious disease exposure. ABUSE ASSESSMENT: Abuse denied. No suspicion of abuse. No report of abuse. SELF HARM ASSESSMENT: Self harm assessment was performed. The patient answered no to the question(s) Do you have thoughts of harming or killing yourself?. NUTRITIONAL RISK ASSESSMENT: The nutritional risk assessment revealed no deficiencies. 2 of 5 Nurse Narrative - RICARDA BRYSON, : 1945, , FUNCTIONAL ASSESSMENT: Functional assessment: no impairments noted. LEARNING NEEDS ASSESSMENT: The learning needs assessment revealed no barriers. FALL RISK ASSESSMENT: Fall risk assessment completed. No risk factors identified. SKIN INTEGRITY ASSESSMENT: Skin integrity risk assessment completed. No skin integrity risk identified. -- 16:22 02/13/25 EDT Corona Naqvi R.N. Assessment 16:02/13/25. The patient states feels the same. -- 16:22 02/13/25 LINAT Corona Naqvi R.N. Interventions 16:02/13/25. Identification band on patient. To treatment room. Advanced care plan (FC). -- 16:02/13/25 LINAT Corona Naqvi R.N. PHYSICAL ASSESSMENT 16:02/13/25. BP: 136/78 MAP: 97. HR: 70. RR: 16. O2 saturation: 99% Temperature: 97.4 F. Pain level now 7/10. Describes the pain as sharp. -- 20:17 02/13/25 LINAT Jana Almendarez R.N. 18:15 02/13/25. Ambulatory to room. GENERAL / NEURO / PSYCH: Alert. Oriented X 4. Appears in pain, anxious and in distress. RESPIRATORY: Respirations not labored. CVS: Normal sinus rhythm noted. GI / : The patient has had nausea. Abdominal distention. Abdominal tenderness diffusely and in the left side of the abdomen, left lower quadrant and lower abdomen. ( Pt was just hospitalized in [place] for diverticulitis. Pt states she has been home for 15 days and today the pain is worse than what it was.). -- 20:24 02/13/25 EDT Jana Almendarez R.N. NURSING PROGRESS NOTES 17:29 02/13/25. 12-LEAD EKG: EKG time: (17:29 02/13/2025). 12-Lead EKG was performed by a air technician. -- 17:44 02/13/25 EDT Montserrat Cooney 18:51 02/13/25. Ondansetron IVP 4 m (more content not included)... Normal [facility] ED ORDER SHEET (CPOE ONLY)on 03-07-2025 ED ORDER SHEET (CPOE ONLY) Order Sheet - RICARDA BRYSON, : 1945, , Order Sheet [address] [address] [id number] 02/13/2025 Patient: RICARDA BRYSON Sex: Female : 1945 Age: 79y MEASUREMENTS: Wt: 76.7 kg, Ht/Nacho: 68.0 in, BMI: 25.70 ALLERGIES: All antibiotics MEDICATION/IV/DRIP/FL UID ORDERS Order Description Priority Entered Acknowledged Completed HYDROmorphone (Dilaudid) 17:01 02/13/2025 18:56 IVP0.5 mg (NOW x1, HIGH Chente Vela M.D. 02/13/2025 ALERT MEDICATION) Jana Almendarez R.N. Ondansetron IVP4 mg (NOW x1) 17:01 02/13/2025 18:54 Chente Vela M.D. 02/13/2025 Jana Almendarez R.N. Reason for ordering with alerts: Benefits outweigh risks --17:01 02/13/2025 Chente Vela M.D. IV NS 0.9 %1000 mL at 999 19:08 02/13/2025 19:18 19:49 mL/hr (NOW x1) Chente Vela M.D. 02/13/2025 02/13/2025 Opal Ayala R.N. RKeenanNKeenan Ertapenem IVPB1 g diluted in 20:21 02/13/2025 21:02 21:10 sodium chloride IVPB 0.9 % Chente Vela M.D. 02/13/2025 02/13/2025 Minibag+ 50 mL at 100 mL/hr López Ayala R.N. (NOW x1) R.NKeenan 1 of 3 Order Sheet - RICARDA BRYSON, : 1945, , HYDROmorphone (Dilaudid) 00:21 02/14/2025 00:22 00:31 IVP0.5 mg (NOW x1, HIGH Eber Metcalf D.O. 02/14/2025 02/14/2025 ALERT MEDICATION) Opal Ayala R.N. RKeenanNKeenan Reason for ordering with alerts: Other --00:21 02/14/2025 Eber Metcalf D.O. Nicotine (Nicoderm) Patch 00:56 02/14/2025 00:58 01:03 21mg/24hr1 patch (NOW x1) Opal Murphy R.N. 02/14/2025 02/14/2025 Verbal Order, Auth by: Opal Ayala Jacob Chevlen, D.O. R.NKeenan R.NKeenan Read back and verified LAB ORDERS Order Description Priority Entered Acknowledged Collected Completed CBC w Diff Stat Stat 17:01 02/13/2025 18:10 02/13/2025 18:10 02/13/2025 Jana Delgado Natalie Yoder, M.D. R.N. R.N. CMP Stat Stat 17:01 02/13/2025 18:10 02/13/2025 18:10 02/13/2025 Jana Delgado Natalie Yoder, M.D. R.N. R.NKeenan Urinalysis Stat Stat 17:01 02/13/2025 18:10 02/13/2025 18:50 02/13/2025 Jana Delgado Natalie Yoder, M.D. R.N. R.N. EKG - ED Stat Stat 17:01 02/13/2025 18:10 02/13/2025 18:10 02/13/2025 Jana Delgado Natalie Yoder, M.D. R.N. R.N. Troponin-I Stat Stat 17:01 02/13/2025 18:10 02/13/2025 18:10 02/13/2025 Jana Delgado, Jana Almendarez, 2 of 3 Order Sheet - RICARDA BRYSON, : 1945, , Mary Joshua. R.N. Lipase Stat Stat 17:01 02/13/2025 18:10 02/13/2025 18:10 02/13/2025 Jana Delgado Natalie Yoder, M.D. R.N. R.N. DIAGNOSTIC STUDY ORDERS Order Description Priority Entered Acknowledged Completed CT ABD/PEL w Cont Stat Stat 17:01 02/13/2025 18:10 00:58 Chente Vela M.D. 02/13/2025 02/14/2025 Opal Ward R.N. R.N. Reason for Study: llq pain STAFF ORDERS Order Description Priority Entered Acknowledged Collected Completed [Electronically signed by Eber Metcalf D.O. (02/14/2025 00:22 EDT)] 3 of 3 Normal [facility] ED PHYSICIAN CLINICAL REPORT on 03-07-2025 ED PHYSICIAN CLINICAL REPORT Narrative - RICARDA BRYSON, : 1945, , Physician Clinical Narrative [address] [address] [id number] 02/13/2025 15:44:00 Patient: RICARDA BRYSON Sex: Female : 1945 Age: 79y Disposition: Observation to Med/Surg Disposition Decision Time: 22:15 02/13/2025 Departure Time: 01:06 02/14/2025 Measurements Wt: 76.7 kg, Ht/Nacho: 68.0 in, BMI: 25.70 Initial Vital Sign Measured Time BP MAP HR RR O2Sat ETCO2 Temp Pain GCS RTS 16:20 02/13/2025 136/78 97 70 16 99% 97.4 F 7 Time Seen: 16:48 02/13/2025. HISTORY OF PRESENT ILLNESS Chief Complaint: ABDOMINAL PAIN. (Patient has left lower quadrant pain. Has a longstanding history of diverticulitis. Has been admitted twice to [facility] with diverticulitis since November. States she has never been feeling completely better but today it is the worse it has been. It is all along the left side and her left lower back. No history of stones. Has had urinary tract infections in the past. Denies any pain in her chest her shortness of breath. The remainder of the abdomen is generalized pain but not as bad as the left side. She has not taken anything for pain. Denies any vomiting but has had nausea. Denies any dysuria. Can reportedly take ertapenem and doxycycline but is allergic to all other antibiotics). Similar symptoms previously. Patient has had similar symptoms several times. Recent medical care: The patient was seen recently and hospitalized. 1 of Zuri Obrien SILVIA BRYSONIA, : 1945, , REVIEW OF SYSTEMS All other systems reviewed and are negative. PAST HISTORY See nurses notes. Diverticulitis Gastroesophageal Reflux Disease Hypercholesterolemia Hypertension Surgeries: Bladder Surgery Hysterectomy Lumpectomy of breast Tonsillectomy Adenoidectomy Medications: amlodipine 5 mg tablet cyanocobalamin (vit B-12) 1,000 mcg/mL injection solution: INJECT 1 ML ONCE IN 3 WEEKS escitalopram 20 mg tablet Nexium 40 mg capsule,delayed release ondansetron 4 mg disintegrating tablet rosuvastatin 20 mg tablet sucralfate 1 gram tablet Xiidra 5 % eye drops in a dropperette Allergies: All antibiotics ADDITIONAL NOTES The nursing notes have been reviewed. PHYSICAL EXAM 2 of 11 RICARDA Yee, : 1945, , Vital Signs: Have been reviewed. Appearance: Alert. Oriented X3. Eyes: Eyes normal inspection. ENT: Ears normal. Nose normal. Pharynx normal. Neck: Normal inspection. Neck supple. CVS: Normal heart rate and rhythm. Heart sounds normal. Pulses normal. Respiratory: No respiratory distress. Painless inspiration. Breath sounds normal. Chest nontender. Abdomen: Soft. Moderate tenderness in the left upper quadrant, left side of the abdomen and left lower quadrant. Mild additional tenderness diffusely. Bowel sounds normal. Back: Normal inspection. Mild CVA tenderness on the left. Skin: Skin warm and dry. Normal skin color. Normal skin turgor. Extremities: Extremities exhibit normal ROM. No lower extremity edema. LABS, X-RAYS, AND EKG 12-LEAD EKG: Rhythm is sinus with 1 P wave for every QRS 1 QRS for every P wave. [place], QRS, QT intervals are unremarkable. No axis deviation noted. No ST segment elevation or depression. Unremarkable T waves. Unremarkable EKG. Laboratory Tests: CBC + DIFF Final KENDALL: 02/13/2025 18:04:00 EDT MsgRcvd: 02/13/2025 18:20 EDT Lab Test Result Reference Status Received 02/13/2025 18:20 CBC + DIFF Final EDT CBC-COMPLETE BLOOD COUNT 14.0 x 10/UL 02/13/2025 18:20 WBC 4.5 - 10.8 Final Above high normal EDT 02/13/2025 18:20 RBC 4.23 x 10/UL 4.10 - 5.30 Final EDT 02/13/2025 18:20 HEMOGLOBIN 13.4 g/dl 12.0 - 16.0 Final EDT 3 of 11 Zuri - RICARDA BRYSON, : 1945, , 02/13/2025 18:20 HEMATOCRIT 38.5 % 34.0 - 46.0 Final EDT 02/13/2025 18:20 MCV 91 fl 80 - 99 Final EDT 02/13/2025 18:20 MCH 32 pg 27 - 33 Final EDT 02/13/2025 18:20 MCHC 35 X10 3 32 - 36 Final EDT 02/13/2025 18:20 RDW/CV 13.8 % 12.0 - 15.6 Final EDT 02/13/2025 18:20 PLATELET 360 x10/UL 150 - 450 Final EDT 02/13/2025 18:20 MPV 7.7 fl 6.6 - 10.5 Final EDT AUTOMATED DIFFERENTIAL 02/13/2025 18:20 NEUT % 66.5 % 46.0 - 76.0 Final EDT 02/13/2025 18:20 LYMPH % 25.0 % 20.0 - 45.0 Final EDT 02/13/2025 18:20 MONOS % 7.5 % 0.0 - 10.0 Final EDT 02/13/2025 18:20 EO % 0.7 % 0.0 - 7.0 Final EDT 02/13/2025 18:20 BASO % 0.4 % 0.0 - 2.0 Final EDT 3.50 x10/UL 02/13/2025 18:20 Lymph # 0.80 - 2.80 Final Above high normal EDT [facility] RICARDA BRYSON, : 1945, , 9. (more content not included)... Normal [facility] [facility], : 1945, , [place] [address] [facility] [place] [address] [id number] 02/13/2025 Patient: RICARDA BRYSON Sex: Female : 1945 Age: 79y Item Facility Professional Category Description Code Code Quantity Fee Total Drugs Normal Saline 099090 1 $0.00 $0.00 1000cc (987875) Nurse/E/M EMERGENCY 822415 1 $0.00 $0.00 DEPARTMENT VISIT HIGH/URGENT SEVERITY (25706-63) Nurse/IV/IM/Infusions Drip/IVPB initial 446518 1 $0.00 $0.00 (60772) Nurse/IV/IM/Infusions Hydration 579526 1 $0.00 $0.00 additional hour (17856) Nurse/IV/IM/Infusions IVP additional 257742 2 $0.00 $0.00 push (66920) Nurse/IV/IM/Infusions IVP same med 083715 1 $0.00 $0.00 (31 min apart) (83466) Grand Total $0.[address] [facility], : 1945, , Providers Chente Vela M.D. Chief Complaint ABDOMINAL PAIN. 2 of 2 Normal [facility] ED VISIT SUMMARYon ED VISIT SUMMARY Visit RICARDA Lebron : 1945, , [place] [address] [id number] 02/13/2025 Patient: RICARDA BRYSON Sex: Female : 1945 Age: 79y 03/07/2025 09:19 PM EDT ED Arrival:15:44 02/13/2025 EDT Status: Recent Travel:no Language:eng Adv Directive: Isolation Status: Ethnicity:N Fall Risk:no risk Infectious Disease Exposure:no Measurements:5'8 / 172.7 Self-Harm Status:no risk Sepsis Screen:negative cm 169.0 lb / 76.7 kg Chief Complaint:ABDOMINAL PAIN ALLERGIES All antibiotics HOME MEDICATIONS amlodipine 5 mg tablet cyanocobalamin (vit B-12) 1,000 mcg/mL injection solution: INJECT 1 ML ONCE IN 3 WEEKS escitalopram 20 mg tablet Nexium 40 mg capsule,delayed release ondansetron 4 mg disintegrating tablet rosuvastatin 20 mg tablet sucralfate 1 gram tablet 1 of 4 Visit RICARDA Lebron, : 1945, , Xiidra 5 % eye drops in a dropperette PAST MEDICAL HISTORY / PROBLEMS Diverticulitis Gastroesophageal Reflux Disease Hypercholesterolemia Hypertension See nurses notes PAST SURGICAL HISTORY Bladder Surgery Hysterectomy Lumpectomy of breast Tonsillectomy Adenoidectomy SOCIAL HISTORY Nutritional assessment: No deficits Functional assessment: No impairments Learning needs: No barriers Smoking status: Yes Alcohol use: No Drug use: No ED COURSE MEDICATIONS GIVEN IN EMERGENCY DEPARTMENT 18:51 02/13/25 Ondansetron IVP 4 mg 18:55 02/13/25 HYDROmorphone (Dilaudid) IVP 0.5 mg 19:46 02/13/25 IV NS 0.9 % 1000 mL 999 mL/hr 21:10 02/13/25 Ertapenem IVPB 1 g diluted in sodium chloride IVPB 0.9 % Minibag+ 50 mL 100 mL/hr 00:31 02/14/25 HYDROmorphone (Dilaudid) IVP 0.5 mg 01:01 02/14/25 Nicotine (Nicoderm) Patch 21mg/24hr 1 patch IV SITE INFORMATION 18:27 02/13/25 Site #1 left AC, 20g. Saline lock. INTAKE 2 of 4 Visit Overview - RICARDA BRYSON, : 1945, , OUTPUT REASSESMENT (most recent) 18:15 02/13/25. Ambulatory to room. GENERAL / NEURO / PSYCH: Alert. Oriented X 4. Appears in pain, anxious and in distress. RESPIRATORY: Respirations not labored. CVS: Normal sinus rhythm noted. GI / : The patient has had nausea. Abdominal distention. Abdominal tenderness diffusely and in the left side of the abdomen, left lower quadrant and lower abdomen. ( Pt was just hospitalized in [place] for diverticulitis. Pt states she has been home for 15 days and today the pain is worse than what it was.). VITAL SIGNS First Vitals Last Vitals Temp 16:20 02/13/25 97.4 F Temp 00:35 02/14/25 BP 16:20 02/13/25 136/78 BP 00:35 02/14/25 121/72 HR 16:20 02/13/25 70 HR 00:35 02/14/25 69 RR 16:20 02/13/25 16 RR 00:35 02/14/25 O2 Sat 16:20 02/13/25 99% O2 Sat 00:35 02/14/25 Pain 16:20 08/20/25 7 Pain 00:35 02/14/25 ETCO2 16:20 02/13/25 ETCO2 00:35 02/14/25 GCS 16:20 02/13/25 GCS 00:35 02/14/25 RTS 16:20 02/13/25 RTS 00:35 02/14/25 PROCEDURES NURSING INTERVENTIONS LABS / STUDIES LABS / STUDIES ORDERED CBC w Diff CMP CT ABD/PEL w Cont EKG - ED Lipase Troponin-I Urinalysis 3 of 4 Visit Overview - RICARDA BRYSON, : 1945, , CLINICAL IMPRESSION 4 of 4 Normal [facility] ED VITALS FLOW SHEETon 03-07 ED VITALS FLOW SHEET Vitals - RICARDA BRYSON, : 1945, , Vital Sign Flow Sheet [address] [address] [id number] 02/13/2025 Patient: RICARDA BRYSON Sex: Female : 1945 Age: 79y Measurements Wt: 76.7 kg, Ht/Nacho: 68.0 in, BMI: 25.70 Measured Time BP MAP HR RR O2Sat ETCO2 Temp Pain GCS RTS 00:35 02/14/2025 121/72 86 69 20:58 02/13/2025 69 92% 20:53 02/13/2025 69 92% 20:50 02/13/2025 137/61 86 67 20:48 02/13/2025 69 92% 20:43 02/13/2025 68 92% 20:38 02/13/2025 71 91% 20:33 02/13/2025 70 93% 20:28 02/13/2025 70 93% 20:23 02/13/2025 71 93% 20:20 02/13/2025 146/70 95 70 20:18 02/13/2025 71 94% 20:13 02/13/2025 63 94% 20:08 02/13/2025 64 94% 20:03 02/13/2025 65 93% 1 of 2 Vitals - RICARDA BRYSON, : 1945, , Measured Time BP MAP HR RR O2Sat ETCO2 Temp Pain GCS RTS 19:58 02/13/2025 62 93% 19:53 02/13/2025 63 92% 19:51 02/13/2025 126/71 92 61 19:48 02/13/2025 65 93% 19:43 02/13/2025 65 94% 19:38 02/13/2025 64 93% 19:34 02/13/2025 161/74 103 75 19:33 02/13/2025 80 92% 19:30 02/13/2025 69 92% 19:25 02/13/2025 67 94% 19:20 02/13/2025 75 92% 19:15 02/13/2025 70 93% 19:12 02/13/2025 71 94% 19:07 02/13/2025 72 95% 19:03 02/13/2025 114/66 73 72 16:20 02/13/2025 136/78 97 70 16 99% 97.4 F 7 2 of 2 Normal [facility] US RUQ (GB/PANCREAS)on 02-18 US RUQ (GB/PANCREAS) [place] [address] Patient: RICARDA BRYSON Phone#: : 1945 Age: 79 Gender: F Pt. Type: Out Account: [id number] Location: Formerly named [facility] Ordering: DR. DUNIA AMBRIZ Exam Date: 02/18/2025/11:40 Family Phys: FRANDY KWON Charge Code: [id number] Physician: Forrest Order #: [id number] Dose#: PROCEDURE: RUQ (GB) ULTRASOUND COMPARISON: None. INDICATIONS: Abdominal pain. FINDINGS: LIVER: Mild fatty changes of liver are present. BILIARY: Low-level echoes are present in the dependent aspect of the gallbladder consistent with sludge and/or gravel. The common bile duct is 8.5 millimeters. Intraductal calculus is not identified. PANCREAS: Normal. No visible mass, abnormal atrophy, or ductal dilatation. RIGHT KIDNEY: There is a 15 millimeter right renal cortical cyst. The kidney is otherwise unremarkable. OTHER: Negative. CONCLUSION: 1. Sludge and/or gravel in the dependent aspect of the gallbladder. 2. The common bile duct is dilated. Intraductal calculus is not identified. DICTATED BY: MADIE DUVALL MD ON 02/18/2025 AT 13:20 APPROVED BY: MADIE DUVALL MD ON 02/18/2025 AT 13:23 Normal [facility] BMP with eGFRon 02-17-2025 AGE 79 years Normal [facility] Comment on above: Performed By: #### 2 93833 #### [facility],[address] [place], [place] [id number] Anion gap [Moles/Vol] 15 mmol/L Normal 10 - 20 [facility] Comment on above: Performed By: #### 2 14802 #### [facility],[address] [place], [place] [id number] BMP with eGFR Normal [facility] Comment on above: Result Comment: BASI C METABOLIC PANEL Performed By: #### 2 53567 #### [facility],[address] [place] [address] 86085 Calcium [Mass/Vol] 9.2 mg/dL Normal 8.5 - 10.1 [facility] Comment on above: Performed By: #### 2 96250 #### [facility],[address] [place] [address] 36297 Chloride [Moles/Vol] 104 mmol/L Normal 98 - 107 [facility] Comment on above: Performed By: #### 2 21730 #### [facility],[address] [place] [address] 99875 CO2 [Moles/Vol] 27.1 mmol/L Normal 21.0 - 32.0 [facility] Comment on above: Performed By: #### 2 90963 #### [facility],[address] [place] [address] 60855 Creatinine [Mass/Vol] 0.61 mg/dL Normal 0.55 - 1.02 [facility] Comment on above: Performed By: #### 2 02865 #### [facility],[address] [place] [address] 13015 GFR/1.73 sq M.predicted among non-blacks MDRD (S/P/Bld) [Vol rate/Area] mL/min/{1.73_m2} Normal 60 - 999 [facility] Comment on above: Performed By: #### 2 97146 #### [facility],[address] [place], [place] [id number] Result Comment: ACCO RDING TO THE NATIONAL KIDNEY DISEASE EDUCATION PROGRAM(NKDE), A NORMAL eGFR IS A VALUE GREATER THAN OR EQUAL TO 60 ML/MIN/1.73 SQ METERS. CHRONIC KIDNEY DISEASE: <60mL/MIN/1.73 SQ METERS KIDNEY FAILURE: <15mL/MIN/1.73 SQ METERS THIS TEST SHOULD ONLY BE USED FOR PATIENTS 18 YEARS OF AGE AND OLDER. Glucose [Mass/Vol] 87 mg/dL Normal 74 - 106 [facility] Comment on above: Performed By: #### 2 97532 #### [facility],[address] [place] [address] 18384 Potassium [Moles/Vol] 3.6 mmol/L Normal 3.5 - 5.1 [facility] Comment on above: Performed By: #### 2 34502 #### [facility],[address] [place] [address] 38863 Sodium [Moles/Vol] 142 mmol/L Normal 136 - 145 [facility] Comment on above: Performed By: #### 2 66606 #### [facility],[address] [place] [address] 16310 Urea nitrogen [Mass/Vol] 3 mg/dL Low 7 - 18 [facility] Comment on above: Performed By: #### 2 72208 #### [facility],[address] [place] [address] 04362 CBC + DIFFon 02-17-2025 Baso # 0.02 x10EE3/UL Normal 0.00 - 0.10 [facility] Comment on above: Performed By: #### 2 70515 #### [facility],[address] [place] [address] 48452 Basophils/100 WBC (Bld) 0.3 % Normal 0.0 - 2.[address] [facility] Comment on above: Performed By: #### 2 22089 #### [facility],[address] [place] [address] CBC + DIFF Normal [facility] Comment on above: Result Comment: CBC- COMPLETE BLOOD COUNT Performed By: #### 2 46476 #### [facility],[address] [place] [address] 02737 EO # 0.16 x10EE3/UL Normal 0.00 - 0.50 [facility] Comment on above: Performed By: #### 2 62482 #### [facility],[address] [place] [address] 87125 Eosinophils/100 WBC (Bld) 3.0 % Normal 0.0 - 7.0 [facility] Comment on above: Performed By: #### 2 53796 #### [facility],[address] [place] [address] 83071 Erythrocyte distribution width (RBC) [Ratio] 13.3 % Normal 12.0 - 15.6 [facility] Comment on above: Performed By: #### 2 48260 #### [facility],[address] [place] [address] 36228 Hematocrit (Bld) [Volume fraction] 35.1 % Normal 34.0 - 46.0 [facility] Comment on above: Performed By: #### 2 50929 #### [facility],[address] [place] [address] 93041 Hemoglobin (Bld) [Mass/Vol] 12.3 g/dL Normal 12.0 - 16.0 [facility] Comment on above: Performed By: #### 2 79922 #### [facility],[address] [place] [address] Lymph # 2.21 x10EE3/UL Normal 0.80 - 2.80 [facility] Comment on above: Performed By: #### 2 33675 #### [facility],[address] [place] [address] Lymphocytes/100 WBC (Bld) 42.1 % Normal 20.0 - 45.0 [facility] Comment on above: Performed By: #### 2 58477 #### [facility],[address] [place] [address] MANUAL DIFF N/A Normal [facility] Comment on above: Performed By: #### 2 20774 #### [facility],[address] [place] [address] MCH (RBC) [Entitic mass] 32 pg Normal 27 - 33 [facility] Comment on above: Performed By: #### 2 92413 #### [place] [address] MCHC 35 X10 3 Normal 32 - 36 [facility] Comment on above: Performed By: #### 2 36212 #### [facility],[address] [place] [address] MCV (RBC) [Entitic vol] 91 fL Normal 80 - [address] [facility] Comment on above: Performed By: #### 2 04836 #### [place] [address] [place] # 0.53 x10EE3/UL Normal 0.20 - 1.00 [facility] Comment on above: Performed By: #### 2 73539 #### [place] [address] MONOS % 10.1 % High 0.0 - 10.0 [facility] Comment on above: Performed By: #### 2 88625 #### [facility],[address] [place] [address] 04090 Morphology Jimenez (Bld) [Interp] N/A Normal [facility] Comment on above: Performed By: #### 2 16132 #### [facility],[address] [place] [address] 34797 Neut # 2.33 x10EE3/UL Normal 1.50 - 7.10 [facility] Comment on above: Performed By: #### 2 27466 #### [facility],[address] [place] [address] Neutrophils/100 WBC (Bld) 44.5 % Low 46.0 - 76.0 [facility] Comment on above: Performed By: #### 2 97333 #### [facility],[address] [place] [address] PLATELET 312 x10EE3/UL Normal 150 - 450 [facility] Comment on above: Performed By: #### 2 59769 #### [facility],[address] [place] [address] Platelet mean volume (Bld) [Entitic vol] 8.2 fL Normal 6.6 - 10.5 [facility] Comment on above: Result Comment: AUTO MATED DIFFERENTIAL Performed By: #### 2 96745 #### [facility],[address] [place] [address] 31798 RBC 3.87 x 10EE6/UL Low 4.10 - 5.30 [facility] Comment on above: Performed By: #### 2 21336 #### [place] [id number] WBC 5.2 x 10EE3/UL Normal 4.5 - 10.8 [facility] Comment on above: Performed By: #### 2 13842 #### [facility],[address] [place] [address] CT ABDOMEN/PELVIS Won 2024 CT ABDOMEN/PELVIS W [address] [address] Patient: RICARDA BRYSON Phone#: : 1945 Age: 79 Gender: F Pt. Type: Out Account: [id number] Location: Formerly named [facility] Ordering: FRANDY KWON Exam Date: 02/17/2025/11:17 Family Phys: Charge Code: [id number] Physician: Forrest Order #: [id number] Dose#: 18.0 mGy PROCEDURE: CT ABDOMEN/PELVIS WITH CONTRAST COMPARISON: [facility], CT, ABDOMEN/PELVIS W CON, 02/13/2025, 19:18. INDICATIONS: Abdominal pain. TECHNIQUE: After obtaining the patient's consent, CT images were created with non-ionic intravenous contrast material. All CT scans at this facility use dose modulation, iterative reconstruction, and/or weight based dosing when appropriate to reduce radiation dose to as low as reasonably achievable. IV CONTRAST: Omnipaque 350,80ml TOTAL DOSE: 18.0 CTDIvol(mGy) FINDINGS: LIVER: Normal. No enlargement, atrophy, abnormal density, or significant focal lesion. BILIARY: There is increased attenuation of the dependent aspect of the gallbladder consistent with sludge versus vicarious excretion of contrast. PANCREAS: Normal. No lesion, fluid collection, ductal dilatation, or atrophy. SPLEEN: Normal. No enlargement or focal lesion. KIDNEYS: Right renal cortical cysts are present.. No mass, obstruction, or calcification. ADRENALS: Normal. No mass or enlargement. AORTA/VASCULAR: Calcification of the aorta is present. No aneurysm or dissection. RETROPERITONEUM: Normal. No mass or adenopathy. BOWEL/MESENTERY: Multiple diverticula without inflammatory change are present.. No visible mass, obstruction, or bowel wall thickening. ABDOMINAL WALL: Normal. No mass or hernia. URINARY BLADDER: Normal. No visible focal wall thickening, lesion, or calculus. PELVIC NODES: Normal. No adenopathy. PELVIC ORGANS: Normal. No visible mass. Pelvic organs appropriate for patient age. BONES: Degenerative changes of the spine are present with disc space narrowing at the L3-4 and L4-5 levels. Continued Report - Page 2 of 2 Patient: RICARDA BRYSON Phone#: : 1945 Age: 79 Gender: F Pt. Type: Out Account: [id number] Location: 010 Ordering: FRANDY KWON Exam Date: 02/17/2025/11:17 Family Phys: Charge Code: [id number] Physician: Forrest Order #: [id number] Dose#: 18.0 mGy LUNG BASES: Normal. No visible pulmonary or pleural disease. OTHER: Negative. CONCLUSION: 1. Diverticulosis. 2. Sludge versus vicarious excretion of contrast in the gallbladder. 3. There is no evidence of acute abdominal or pelvic abnormality. Dictated by: Madie Duvall MD on 02/18/2025 at 0:42 Approved by: Madie Duvall MD on 02/18/2025 at 0:48 Normal [facility] ABDOMEN 1 VIEWon 02-16-2025 ABDOMEN 1 VIEW [place] [address] Patient: RICARDA BRYSON Phone#: : 1945 Age: 79 Gender: F Pt. Type: Out Account: [id number] Location: 010 Ordering: ChipInNIKKI Exam Date: 02/16/2025/12:00 Family Phys: Charge Code: [id number] Physician: Forrest Order #: [id number] Dose#: PROCEDURE: ABDOMEN 1 VIEW COMPARISON: None. INDICATIONS: Abdominal pain. FINDINGS: BOWEL GAS PATTERN: Low pelvis not included on the exam. No dilated loops of bowel in the mid upper abdomen. Air is present in the small bowel and colon. No significant stool burden. CALCIFICATIONS: Evaluation somewhat limited due to overlying bowel gas however no appreciable calcification in the region of the renal shadows. OTHER: Degenerative changes of the spine. CONCLUSION: Unremarkable bowel gas pattern Dictated by: Vero Pollock MD on 02/16/2025 at 22:13 Approved by: Vero Pollock MD on 02/16/2025 at 22:19 Normal [facility] BMP with eGFRon 02-16-2025 AGE 79 years Normal [facility] Comment on above: Performed By: #### 2 88409 #### [facility],[address] [place] [address] 29812 Anion gap [Moles/Vol] 17 mmol/L Normal 10 - 20 [facility] Comment on above: Performed By: #### 2 96583 #### [facility],[address] [place] [address] 41747 BMP with eGFR Normal [facility] Comment on above: Result Comment: BASI C METABOLIC PANEL Performed By: #### 2 90965 #### [facility],[address] [place] [address] 82533 Calcium [Mass/Vol] 8.7 mg/dL Normal 8.5 - 10.1 [facility] Comment on above: Performed By: #### 2 50326 #### [facility],[address] [place] [address] 29336 Chloride [Moles/Vol] 103 mmol/L Normal 98 - 107 [facility] Comment on above: Performed By: #### 2 03839 #### [facility],[address] [place] [address] 76696 CO2 [Moles/Vol] 23.4 mmol/L Normal 21.0 - 32.0 [facility] Comment on above: Performed By: #### 2 08425 #### [facility],[address] [place] [address] 04774 Creatinine [Mass/Vol] 0.59 mg/dL Normal 0.55 - 1.02 [facility] Comment on above: Performed By: #### 2 78975 #### [facility],[address] [place] [address] 86618 GFR/1.73 sq M.predicted among non-blacks MDRD (S/P/Bld) [Vol rate/Area] mL/min/{1.73_m2} Normal 60 - 999 [facility] Comment on above: Performed By: #### 2 70860 #### [facility],[address] [place] [address] 65041 Result Comment: ACCO RDING TO THE NATIONAL KIDNEY DISEASE EDUCATION PROGRAM(NKDE), A NORMAL eGFR IS A VALUE GREATER THAN OR EQUAL TO 60 ML/MIN/1.73 SQ METERS. CHRONIC KIDNEY DISEASE: <60mL/MIN/1.73 SQ METERS KIDNEY FAILURE: <15mL/MIN/1.73 SQ METERS THIS TEST SHOULD ONLY BE USED FOR PATIENTS 18 YEARS OF AGE AND OLDER. Glucose [Mass/Vol] 50 mg/dL Low 74 - 106 [facility] Comment on above: Performed By: #### 2 79242 #### [facility],[address] [place] [address] 23990 Potassium [Moles/Vol] 3.5 mmol/L Normal 3.5 - 5.1 [facility] Comment on above: Performed By: #### 2 57716 #### [facility],[address] [place] [address] 48759 Sodium [Moles/Vol] 140 mmol/L Normal 136 - 145 [facility] Comment on above: Performed By: #### 2 63330 #### [facility],[address] [place] [address] 88533 Urea nitrogen [Mass/Vol] 7 mg/dL Normal 7 - 18 [facility] Comment on above: Performed By: #### 2 66041 #### [facility],[address] [place] [address] 76734 CBC + DIFFon 02-16-2025 Baso # 0.01 x10EE3/UL Normal 0.00 - 0.10 [facility] Comment on above: Performed By: #### 2 82416 #### [facility],[address] [place] [address] 69871 Basophils/100 WBC (Bld) 0.2 % Normal 0.0 - 2.[address] [facility] Comment on above: Performed By: #### 2 12239 #### [facility],[address] [place] [address] 18392 CBC + DIFF Normal [facility] Comment on above: Result Comment: CBC- COMPLETE BLOOD COUNT Performed By: #### 2 09275 #### [facility],[address] [place] [address] 34967 EO # 0.14 x10EE3/UL Normal 0.00 - 0.50 [facility] Comment on above: Performed By: #### 2 50854 #### [facility],[address] [place] [address] 25095 Eosinophils/100 WBC (Bld) 2.4 % Normal 0.0 - 7.0 [facility] Comment on above: Performed By: #### 2 25138 #### [facility],[address] [place], [place] [address] Erythrocyte distribution width (RBC) [Ratio] 14.1 % Normal 12.0 - 15.6 [facility] Comment on above: Performed By: #### 2 39247 #### [facility],[address] [place], [place] [address] Hematocrit (Bld) [Volume fraction] 34.1 % Normal 34.0 - 46.0 [facility] Comment on above: Performed By: #### 2 54706 #### [facility],[address] [place] [address] 12925 Hemoglobin (Bld) [Mass/Vol] 11.6 g/dL Low 12.0 - 16.0 [facility] Comment on above: Performed By: #### 2 88503 #### [facility],[address] [place] [address] 51032 Lymph # 1.89 x10EE3/UL Normal 0.80 - 2.80 [facility] Comment on above: Performed By: #### 2 15174 #### [facility],[address] [place] [address] 19507 Lymphocytes/100 WBC (Bld) 31.2 % Normal 20.0 - 45.0 [facility] Comment on above: Performed By: #### 2 66718 #### [facility],[address] [place] [address] MANUAL DIFF N/A Normal [facility] Comment on above: Performed By: #### 2 49913 #### [facility],[address] [place] [address] MCH (RBC) [Entitic mass] 31 pg Normal 27 - 33 [facility] Comment on above: Performed By: #### 2 01475 #### [facility],[address] [place] [address] MCHC 34 X10 3 Normal 32 - 36 [facility] Comment on above: Performed By: #### 2 12900 #### [facility],[address] [place] [address] MCV (RBC) [Entitic vol] 91 fL Normal 80 - 99 [facility] Comment on above: Performed By: #### 2 10707 #### [facility],[address] [place] [address] [place] # 0.49 x10EE3/UL Normal 0.20 - 1.00 [facility] Comment on above: Performed By: #### 2 96477 #### [facility],[address] [place] [address] MONOS % 8.1 % Normal 0.0 - 10.0 [facility] Comment on above: Performed By: #### 2 20308 #### [facility],[address] [place], [place] [address] Morphology Jimenez (Bld) [Interp] N/A Normal [facility] Comment on above: Performed By: #### 2 94184 #### [facility],[address] [place] [address] Neut # 3.51 x10EE3/UL Normal 1.50 - 7.10 [facility] Comment on above: Performed By: #### 2 29291 #### [facility],[address] [place] [address] 56239 Neutrophils/100 WBC (Bld) 58.1 % Normal 46.0 - 76.0 [facility] Comment on above: Performed By: #### 2 84357 #### [facility],[address] [place] [address] 43043 PLATELET 316 x10EE3/UL Normal 150 - 450 [facility] Comment on above: Performed By: #### 2 50341 #### [facility],[address] [place] [address] 21753 Platelet mean volume (Bld) [Entitic vol] 7.6 fL Normal 6.6 - 10.5 [facility] Comment on above: Result Comment: AUTO MATED DIFFERENTIAL Performed By: #### 2 48582 #### [facility],[address] [place] [address] 53525 RBC 3.75 x 10EE6/UL Low 4.10 - 5.30 [facility] Comment on above: Performed By: #### 2 08351 #### [facility],[address] [place] [address] 38106 WBC 6.0 x 10EE3/UL Normal 4.5 - 10.8 [facility] Comment on above: Performed By: #### 2 14967 #### [facility],[address] [place] [address] 87616 BMP with eGFRon 02-15-2025 AGE 79 years Normal [facility] Comment on above: Performed By: #### 2 11937 #### [facility],[address] [place] [address] 44944 Anion gap [Moles/Vol] 15 mmol/L Normal 10 - 20 [facility] Comment on above: Performed By: #### 2 74497 #### [facility],[address] [place] [address] 05511 BMP with eGFR Normal [facility] Comment on above: Result Comment: BASI C METABOLIC PANEL Performed By: #### 2 30623 #### [facility],[address] [place] [address] 36758 Calcium [Mass/Vol] 8.6 mg/dL Normal 8.5 - 10.1 [facility] Comment on above: Performed By: #### 2 18980 #### [facility],[address] [place] [address] 98641 Chloride [Moles/Vol] 104 mmol/L Normal 98 - 107 [facility] Comment on above: Performed By: #### 2 55999 #### [facility],[address] [place] [address] 80723 CO2 [Moles/Vol] 26.6 mmol/L Normal 21.0 - 32.0 [facility] Comment on above: Performed By: #### 2 20457 #### [facility],[address] [place] [address] 06238 Creatinine [Mass/Vol] 0.58 mg/dL Normal 0.55 - 1.02 [facility] Comment on above: Performed By: #### 2 50091 #### [facility],[address] [place] [address] 62213 GFR/1.73 sq M.predicted among non-blacks MDRD (S/P/Bld) [Vol rate/Area] mL/min/{1.73_m2} Normal 60 - 999 [facility] Comment on above: Performed By: #### 2 75457 #### [facility],[address] [place] [address] 10299 Result Comment: ACCO RDING TO THE NATIONAL KIDNEY DISEASE EDUCATION PROGRAM(NKDE), A NORMAL eGFR IS A VALUE GREATER THAN OR EQUAL TO 60 ML/MIN/1.73 SQ METERS. CHRONIC KIDNEY DISEASE: <60mL/MIN/1.73 SQ METERS KIDNEY FAILURE: <15mL/MIN/1.73 SQ METERS THIS TEST SHOULD ONLY BE USED FOR PATIENTS 18 YEARS OF AGE AND OLDER. Glucose [Mass/Vol] 58 mg/dL Low 74 - 106 [facility] Comment on above: Performed By: #### 2 45552 #### [facility],[address] [place] [address] 76991 Potassium [Moles/Vol] 4.2 mmol/L Normal 3.5 - 5.1 [facility] Comment on above: Performed By: #### 2 80770 #### [facility],[address] [place] [address] 05341 Sodium [Moles/Vol] 141 mmol/L Normal 136 - 145 [facility] Comment on above: Performed By: #### 2 01754 #### [facility],[address] [place] [address] 57180 Urea nitrogen [Mass/Vol] 8 mg/dL Normal 7 - 18 [facility] Comment on above: Performed By: #### 2 05325 #### [facility],[address] [place] [address] 54838 CBC + DIFFon 02-15-2025 Baso # 0.02 x10EE3/UL Normal 0.00 - 0.10 [facility] Comment on above: Performed By: #### 2 43955 #### [facility],[address] [place] [address] 84665 Basophils/100 WBC (Bld) 0.4 % Normal 0.0 - 2.[address] [facility] Comment on above: Performed By: #### 2 62025 #### [facility],[address] [place] [address] 29339 CBC + DIFF Normal [facility] Comment on above: Result Comment: CBC- COMPLETE BLOOD COUNT Performed By: #### 2 99488 #### [facility],[address] [place] [address] 56608 EO # 0.08 x10EE3/UL Normal 0.00 - 0.50 [facility] Comment on above: Performed By: #### 2 54351 #### [facility],[address] [place] [address] Eosinophils/100 WBC (Bld) 1.4 % Normal 0.0 - 7.0 [facility] Comment on above: Performed By: #### 2 41943 #### [facility],[address] [place] [address] Erythrocyte distribution width (RBC) [Ratio] 13.7 % Normal 12.0 - 15.6 [facility] Comment on above: Performed By: #### 2 75154 #### [facility],[address] [place] [address] Hematocrit (Bld) [Volume fraction] 31.5 % Low 34.0 - 46.0 [facility] Comment on above: Performed By: #### 2 97806 #### [facility],[address] [place] [address] Hemoglobin (Bld) [Mass/Vol] 10.6 g/dL Low 12.0 - 16.0 [facility] Comment on above: Performed By: #### 2 14091 #### [facility],[address] [place] [address] Lymph # 1.19 x10EE3/UL Normal 0.80 - 2.80 [facility] Comment on above: Performed By: #### 2 65256 #### [facility],[address] [place], [place] [address] Lymphocytes/100 WBC (Bld) 21.9 % Normal 20.0 - 45.0 [facility] Comment on above: Performed By: #### 2 04054 #### [facility],[address] [place] [address] MANUAL DIFF N/A Normal [facility] Comment on above: Performed By: #### 2 48945 #### [facility],[address] [place] [address] MCH (RBC) [Entitic mass] 31 pg Normal 27 - 33 [facility] Comment on above: Performed By: #### 2 61822 #### [place] [address] MCHC 34 X10 3 Normal 32 - 36 [facility] Comment on above: Performed By: #### 2 00684 #### [place] [address] MCV (RBC) [Entitic vol] 92 fL Normal 80 - 99 [facility] Comment on above: Performed By: #### 2 89383 #### [place] [address] [place] # 0.43 x10EE3/UL Normal 0.20 - 1.00 [facility] Comment on above: Performed By: #### 2 57110 #### [facility],[address] [place] [address] MONOS % 7.9 % Normal 0.0 - 10.0 [facility] Comment on above: Performed By: #### 2 90275 #### [facility],[address] [place] [address] Morphology Jimenez (Bld) [Interp] N/A Normal [facility] Comment on above: Performed By: #### 2 02414 #### [place] [address] Neut # 3.72 x10EE3/UL Normal 1.50 - 7.10 [facility] Comment on above: Performed By: #### 2 12821 #### [place] [address] Neutrophils/100 WBC (Bld) 68.5 % Normal 46.0 - 76.0 [facility] Comment on above: Performed By: #### 2 47243 #### [address] [address] PLATELET 294 x10EE3/UL Normal 150 - 450 [facility] Comment on above: Performed By: #### 2 54097 #### [facility],[address] [place] [address] 78037 Platelet mean volume (Bld) [Entitic vol] 7.9 fL Normal 6.6 - 10.5 [facility] Comment on above: Result Comment: AUTO MATED DIFFERENTIAL Performed By: #### 2 06394 #### [facility],[address] [place] [address] 32343 RBC 3.43 x 10EE6/UL Low 4.10 - 5.30 [facility] Comment on above: Performed By: #### 2 04960 #### [facility],[address] [place] [address] 50657 WBC 5.4 x 10EE3/UL Normal 4.5 - 10.8 [facility] Comment on above: Performed By: #### 2 30579 #### [facility],[address] [place] [address] 24451 BMP with eGFRon 02-14-2025 AGE 79 years Normal [facility] Comment on above: Performed By: #### 2 42394 #### [facility],[address] [place] [address] 72045 Anion gap [Moles/Vol] 11 mmol/L Normal 10 - 20 [facility] Comment on above: Performed By: #### 2 59838 #### [facility],[address] [place] [address] 89471 BMP with eGFR Normal [facility] Comment on above: Result Comment: BASI C METABOLIC PANEL Performed By: #### 2 74272 #### [facility],[address] [place] [address] 39873 Calcium [Mass/Vol] 8.3 mg/dL Low 8.5 - 10.1 [facility] Comment on above: Result Comment: RESU LTS VERIFIED BY REPEAT ANALYSIS Performed By: #### 2 14202 #### [facility],[address] [place] [address] 64623 Chloride [Moles/Vol] 107 mmol/L Normal 98 - 107 [facility] Comment on above: Performed By: #### 2 18106 #### [facility],[address] [place] [address] 55844 CO2 [Moles/Vol] 25.3 mmol/L Normal 21.0 - 32.0 [facility] Comment on above: Performed By: #### 2 90094 #### [facility],[address] [place] [address] 70540 Creatinine [Mass/Vol] 0.60 mg/dL Normal 0.55 - 1.02 [facility] Comment on above: Performed By: #### 2 11251 #### [facility],[address] [place], [place] [address] GFR/1.73 sq M.predicted among non-blacks MDRD (S/P/Bld) [Vol rate/Area] mL/min/{1.73_m2} Normal 60 - 999 [facility] Comment on above: Performed By: #### 2 21419 #### [facility],[address] [place] [address] 40928 Result Comment: ACCO RDING TO THE NATIONAL KIDNEY DISEASE EDUCATION PROGRAM(NKDE), A NORMAL eGFR IS A VALUE GREATER THAN OR EQUAL TO 60 ML/MIN/1.73 SQ METERS. CHRONIC KIDNEY DISEASE: <60mL/MIN/1.73 SQ METERS KIDNEY FAILURE: <15mL/MIN/1.73 SQ METERS THIS TEST SHOULD ONLY BE USED FOR PATIENTS 18 YEARS OF AGE AND OLDER. Glucose [Mass/Vol] 90 mg/dL Normal 74 - 106 [facility] Comment on above: Performed By: #### 2 67465 #### [facility],[address] [place] [address] 86248 Potassium [Moles/Vol] 3.4 mmol/L Low 3.5 - 5.1 [facility] Comment on above: Performed By: #### 2 48133 #### [facility],[address] [place] [address] 53102 Sodium [Moles/Vol] 140 mmol/L Normal 136 - 145 [facility] Comment on above: Performed By: #### 2 76299 #### [facility],[address] [place] [address] Urea nitrogen [Mass/Vol] 8 mg/dL Normal 7 - 18 [facility] Comment on above: Performed By: #### 2 41566 #### [facility],[address] [place] [address] 97496 CBC + DIFFon 02-14-2025 Baso # 0.02 x10EE3/UL Normal 0.00 - 0.10 [facility] Comment on above: Performed By: #### 2 74358 #### [facility],[address] [place] [address] 54786 Basophils/100 WBC (Bld) 0.2 % Normal 0.0 - 2.[address] [facility] Comment on above: Performed By: #### 2 85929 #### [facility],[address] [place] [address] CBC + DIFF Normal [facility] Comment on above: Result Comment: CBC- COMPLETE BLOOD COUNT Performed By: #### 2 80778 #### [facility],[address] [place] [address] 36996 EO # 0.09 x10EE3/UL Normal 0.00 - 0.50 [facility] Comment on above: Performed By: #### 2 13933 #### [facility],[address] [place] [address] 37899 Eosinophils/100 WBC (Bld) 1.2 % Normal 0.0 - 7.0 [facility] Comment on above: Performed By: #### 2 80060 #### [facility],[address],[place] [address] Erythrocyte distribution width (RBC) [Ratio] 13.7 % Normal 12.0 - 15.6 [facility] Comment on above: Performed By: #### 2 41391 #### [facility],[address] [place] [address] 68339 Hematocrit (Bld) [Volume fraction] 30.6 % Low 34.0 - 46.0 [facility] Comment on above: Performed By: #### 2 47536 #### [facility],[address] [place] [address] 66612 Hemoglobin (Bld) [Mass/Vol] 10.7 g/dL Low 12.0 - 16.0 [facility] Comment on above: Result Comment: RESU LTS VERIFIED BY REPEAT ANALYSIS Performed By: #### 2 96278 #### [facility],[address] [place] [address] 41701 Lymph # 2.65 x10EE3/UL Normal 0.80 - 2.80 [facility] Comment on above: Performed By: #### 2 57715 #### [facility],[address] [place] [address] 53084 Lymphocytes/100 WBC (Bld) 35.0 % Normal 20.0 - 45.0 [facility] Comment on above: Performed By: #### 2 98595 #### [facility],[address] [place] [address] 58026 MANUAL DIFF N/A Normal [facility] Comment on above: Performed By: #### 2 69740 #### [facility],[address] [place] [address] 89393 MCH (RBC) [Entitic mass] 32 pg Normal 27 - 33 [facility] Comment on above: Performed By: #### 2 14322 #### [facility],[address] [place] [address] 84939 MCHC 35 X10 3 Normal 32 - 36 [facility] Comment on above: Performed By: #### 2 99080 #### [facility],[address] [place] [address] 44533 MCV (RBC) [Entitic vol] 91 fL Normal 80 - 99 [facility] Comment on above: Performed By: #### 2 61704 #### [facility],[address] [place] [address] 9[address] [place] # 0.75 x10EE3/UL Normal 0.20 - 1.00 [facility] Comment on above: Performed By: #### 2 48867 #### [facility],[address] [place] [address] 21626 MONOS % 10.0 % Normal 0.0 - 10.0 [facility] Comment on above: Performed By: #### 2 09838 #### [facility],[address] [place] [address] 32385 Morphology Jimenez (Bld) [Interp] N/A Normal [facility] Comment on above: Performed By: #### 2 83447 #### [facility],[address] [place] [address] 16565 Neut # 4.05 x10EE3/UL Normal 1.50 - 7.10 [facility] Comment on above: Performed By: #### 2 92347 #### [facility],[address] [place] [address] 56040 Neutrophils/100 WBC (Bld) 53.6 % Normal 46.0 - 76.0 [facility] Comment on above: Performed By: #### 2 49553 #### [facility],[address] [place] [address] 08823 PLATELET 287 x10EE3/UL Normal 150 - 450 [facility] Comment on above: Performed By: #### 2 57475 #### [facility],[address] [place] [address] 86002 Platelet mean volume (Bld) [Entitic vol] 8.1 fL Normal 6.6 - 10.5 [facility] Comment on above: Result Comment: AUTO MATED DIFFERENTIAL Performed By: #### 2 35073 #### [facility],[address] [place] [address] 80025 RBC 3.35 x 10EE6/UL Low 4.10 - 5.30 [facility] Comment on above: Performed By: #### 2 30711 #### [facility],[address] [place] [address] 09463 WBC 7.6 x 10EE3/UL Normal 4.5 - 10.8 [facility] Comment on above: Performed By: #### 2 26157 #### [facility],[address] [place] [address] 22202 [place] KIDNEYon 02-14-2025 KIDNEY [place] [id number] Patient: RICARDA BRYSON Phone#: : 1945 Age: 79 Gender: F Pt. Type: Out Account: [id number] Location: Formerly named [facility] Ordering: FRANDY KWON Exam Date: 02/14/2025/9:49 Family Phys: Charge Code: [id number] Physician: Forrest Order #: [id number] Dose#: PROCEDURE: KIDNEY ULTRASOUND COMPARISON: [facility], CT, ABDOMEN/PELVIS W CON, 05/10/2021, 17:58. [facility], CT, ABDOMEN/PELVIS W CON, 02/13/2025, 19:18. [facility], [place], KIDNEY, 06/10/2021, 13:15. INDICATIONS: Right renal mass. TECHNIQUE: Ultrasound examination was performed of the kidneys and bladder. FINDINGS: RIGHT KIDNEY: Exophytic right renal cyst measuring 1.7 x 1.3 x 1.7 cm. Previously measuring 1.8 x 1.1 x 1.3 cm. Normal renal parenchymal echogenicity. No hydronephrosis. Right kidney measures 10.5 x 4.9 x 4.1 cm. LEFT KIDNEY: Normal renal parenchymal echogenicity. No hydronephrosis. Left kidney measures 10.4 x 6.3 x 4.7 cm. OTHER: Bladder volume measures 143.6 mL. CONCLUSION: 1. Exophytic right renal cyst. Dictated by: Vero Pollock MD on 02/14/2025 at 11:12 Approved by: Vero Pollock MD on 02/14/2025 at 11:25 Normal [facility] CBC + DIFFon 02-13-2025 Baso # 0.05 x10EE3/UL Normal 0.00 - 0.10 [facility] Comment on above: Performed By: #### 2 58128 #### [facility],[address] [place] [address] 07035 Basophils/100 WBC (Bld) 0.4 % Normal 0.0 - 2.[address] [facility] Comment on above: Performed By: #### 2 33974 #### [facility],[address] [place] [address] 75661 CBC + DIFF Normal [facility] Comment on above: Result Comment: CBC- COMPLETE BLOOD COUNT Performed By: #### 2 29771 #### [facility],[address] [place] [address] 65041 EO # 0.10 x10EE3/UL Normal 0.00 - 0.50 [facility] Comment on above: Performed By: #### 2 92049 #### [facility],[address] [place] [address] 80827 Eosinophils/100 WBC (Bld) 0.7 % Normal 0.0 - 7.0 [facility] Comment on above: Performed By: #### 2 66050 #### [facility],[address] [place] [address] 14830 Erythrocyte distribution width (RBC) [Ratio] 13.8 % Normal 12.0 - 15.6 [facility] Comment on above: Performed By: #### 2 83308 #### [facility],[address] [place] [address] 33756 Hematocrit (Bld) [Volume fraction] 38.5 % Normal 34.0 - 46.0 [facility] Comment on above: Performed By: #### 2 17162 #### [facility],[address] [place] [address] Hemoglobin (Bld) [Mass/Vol] 13.4 g/dL Normal 12.0 - 16.0 [facility] Comment on above: Performed By: #### 2 61856 #### [facility],[address] [place] [address] Lymph # 3.50 x10EE3/UL High 0.80 - 2.80 [facility] Comment on above: Performed By: #### 2 13578 #### [facility],[address] [place] [address] Lymphocytes/100 WBC (Bld) 25.0 % Normal 20.0 - 45.0 [facility] Comment on above: Performed By: #### 2 53070 #### [facility],[address] [place] [address] MANUAL DIFF N/A Normal [facility] Comment on above: Performed By: #### 2 47683 #### [facility],[address] [place] [address] MCH (RBC) [Entitic mass] 32 pg Normal 27 - 33 [facility] Comment on above: Performed By: #### 2 86886 #### [facility],[address] [place], [place] [address] MCHC 35 X10 3 Normal 32 - 36 [facility] Comment on above: Performed By: #### 2 18937 #### [facility],[address] [place], [place] [address] MCV (RBC) [Entitic vol] 91 fL Normal 80 - [address] [facility] Comment on above: Performed By: #### 2 89818 #### [facility],[address] [place], [place] [address] [place] # 1.05 x10EE3/UL High 0.20 - 1.00 [facility] Comment on above: Performed By: #### 2 17745 #### [facility],[address] [place] [address] 64359 MONOS % 7.5 % Normal 0.0 - 10.0 [facility] Comment on above: Performed By: #### 2 83488 #### [facility],[address] [place] [address] Morphology Jimenez (Bld) [Interp] N/A Normal [facility] Comment on above: Performed By: #### 2 40727 #### [facility],[address] [place] [address] Neut # 9.31 x10EE3/UL High 1.50 - 7.10 [facility] Comment on above: Performed By: #### 2 84894 #### [place] [address] Neutrophils/100 WBC (Bld) 66.5 % Normal 46.0 - 76.0 [facility] Comment on above: Performed By: #### 2 44216 #### [place] [address] PLATELET 360 x10EE3/UL Normal 150 - 450 [facility] Comment on above: Performed By: #### 2 45579 #### [facility],[address] [place], [place] [address] Platelet mean volume (Bld) [Entitic vol] 7.7 fL Normal 6.6 - 10.5 [facility] Comment on above: Result Comment: AUTO MATED DIFFERENTIAL Performed By: #### 2 66283 #### [place] [address] RBC 4.23 x 10EE6/UL Normal 4.10 - 5.30 [facility] Comment on above: Performed By: #### 2 11783 #### [facility],[address] [place] [address] 07158 WBC 14.0 x 10EE3/UL High 4.5 - 10.8 [facility] Comment on above: Performed By: #### 2 95390 #### [facility],[address] [place] [address] 31204 CMP with eGFRon 02-13-2025 AGE 79 years Normal [facility] Comment on above: Performed By: #### 2 96528 #### [facility],[address] [place] [address] 56858 Albumin [Mass/Vol] 3.9 g/dL Normal 3.4 - 5.0 [facility] Comment on above: Performed By: #### 2 90306 #### [facility],[address] [place] [address] 52515 Albumin/Globulin [Mass ratio] 1.1 {ratio} Normal 0.9 - 1.6 [facility] Comment on above: Performed By: #### 2 49689 #### [facility],[address] [place] [address] 65636 ALK PHOS 106 U/L Normal 46 - 116 [facility] Comment on above: Performed By: #### 2 #### [facility],[address] [place] [address] 86095 ALT [Catalytic activity/Vol] 18 U/L Normal 16 - 63 [facility] Comment on above: Performed By: #### 2 11275 #### [facility],[address] [place] [address] 27521 Anion gap [Moles/Vol] 13 mmol/L Normal 10 - 20 [facility] Comment on above: Performed By: #### 2 98484 #### [facility],[address] [place] [address] 98022 AST [Catalytic activity/Vol] 18 U/L Normal 13 - 39 [facility] Comment on above: Performed By: #### 2 61492 #### [facility],[address] [place] [address] 01168 B/C RATIO 13 ratio Normal 0 - 30 [facility] Comment on above: Performed By: #### 2 57616 #### [facility],[address] [place] [address] 66933 Bilirubin [Mass/Vol] 0.5 mg/dL Normal 0.2 - 1.0 [facility] Comment on above: Performed By: #### 2 43238 #### [facility],[address] [place] [address] 42397 Calcium [Mass/Vol] 9.5 mg/dL Normal 8.5 - 10.1 [facility] Comment on above: Performed By: #### 2 07346 #### [facility],[address] [place] [address] 64889 Chloride [Moles/Vol] 103 mmol/L Normal 98 - 107 [facility] Comment on above: Performed By: #### 2 82931 #### [facility],[address] [place] [address] 35067 CMP with eGFR Normal [facility] Comment on above: Result Comment: COMP REHENSIVE METABOLIC PANEL Performed By: #### 2 12090 #### [facility],[address] [place] [address] 15786 CO2 [Moles/Vol] 27.8 mmol/L Normal 21.0 - 32.0 [facility] Comment on above: Performed By: #### 2 70981 #### [facility],[address] [place] [address] 34948 Creatinine [Mass/Vol] 0.60 mg/dL Normal 0.55 - 1.02 [facility] Comment on above: Performed By: #### 2 16822 #### [facility],[address] [place] [address] 27904 GFR/1.73 sq M.predicted among non-blacks MDRD (S/P/Bld) [Vol rate/Area] mL/min/{1.73_m2} Normal 60 - 999 [facility] Comment on above: Performed By: #### 2 31219 #### [facility],[address] [place] [address] 40775 Result Comment: ACCO RDING TO THE NATIONAL KIDNEY DISEASE EDUCATION PROGRAM(NKDE), A NORMAL eGFR IS A VALUE GREATER THAN OR EQUAL TO 60 ML/MIN/1.73 SQ METERS. CHRONIC KIDNEY DISEASE: <60mL/MIN/1.73 SQ METERS KIDNEY FAILURE: <15mL/MIN/1.73 SQ METERS THIS TEST SHOULD ONLY BE USED FOR PATIENTS 18 YEARS OF AGE AND OLDER. Globulin (S) [Mass/Vol] 3.5 g/dL Normal 1.5 - 3.[address] [facility] Comment on above: Performed By: #### 2 92150 #### [facility],[address] [place] [address] 59889 Glucose [Mass/Vol] 92 mg/dL Normal 74 - 106 [facility] Comment on above: Performed By: #### 2 65981 #### [facility],[address] [place] [address] 14400 Potassium [Moles/Vol] 3.5 mmol/L Normal 3.5 - 5.1 [facility] Comment on above: Performed By: #### 2 06423 #### [facility],[address] [place] [address] 73531 Protein [Mass/Vol] 7.4 g/dL Normal 6.4 - 8.2 [facility] Comment on above: Performed By: #### 2 86036 #### [facility],[address] [place] [address] 82664 Sodium [Moles/Vol] 140 mmol/L Normal 136 - 145 [facility] Comment on above: Performed By: #### 2 25322 #### [facility],[address] [place] [address] 93715 Urea nitrogen [Mass/Vol] 8 mg/dL Normal 7 - 18 [facility] Comment on above: Performed By: #### 2 46078 #### [facility],[address] [facility] [address] [address] [address] ABDOMEN/PELVIS Won 2024 CT ABDOMEN/PELVIS W [address] [address] Patient: RICARDA BRYSON Phone#: : 1945 Age: 79 Gender: F Pt. Type: ER Account: [id number] Location: [facility] Ordering: DR. CHENTE VELA Exam Date: 02/13/2025/19:18 Family Phys: FRANDY LESLY Charge Code: [id number] Physician: Forrest Order #: [id number] Dose#: 18.8 PROCEDURE: CT ABDOMEN/PELVIS WITH CONTRAST COMPARISON: [facility], CT, ABDOMEN/PELVIS W CON, 05/10/2021, 17:58. INDICATIONS: Left Lower Quadrant Pain. TECHNIQUE: After obtaining the patient's consent, CT images were created with non-ionic intravenous contrast material. All CT scans at this facility use dose modulation, iterative reconstruction, and/or weight based dosing when appropriate to reduce radiation dose to as low as reasonably achievable. IV CONTRAST: Omnipaque 350,80ml TOTAL DOSE: 18.8 CTDIvol(mGy) FINDINGS: LIVER: Fatty changes of the present. There is no evidence abnormality. BILIARY: There is mildly increased attenuation at the dependent aspect of the gallbladder. Gravel cannot be excluded. There is no evidence of biliary dilatation. PANCREAS: Normal. No lesion, fluid collection, ductal dilatation, or atrophy. SPLEEN: Normal. No enlargement or focal lesion. KIDNEYS: Hypoechoic dense non cystic 1.9 centimeter mass is present at the lateral aspect of the right kidney. Further evaluation by ultrasound is recommended. ADRENALS: Normal. No mass or enlargement. AORTA/VASCULAR: Normal. No aneurysm or dissection. RETROPERITONEUM: Normal. No mass or adenopathy. BOWEL/MESENTERY: Colonic diverticula are present. There is mucosal thickening at the sigmoid level with pericolonic fat stranding and cyst with diverticulitis. There is no evidence of free air or abscess. ABDOMINAL WALL: Normal. No mass or hernia. URINARY BLADDER: Normal. No visible focal wall thickening, lesion, or calculus. PELVIC NODES: Normal. No adenopathy. PELVIC ORGANS: The uterus is absent. Continued Report - Page 2 of 2 Patient: RICARDA BRYSON Phone#: : 1945 Age: 79 Gender: F Pt. Type: ER Account: [id number] Location: 2 Ordering: DR. CHENTE VELA Exam Date: 02/13/2025/19:18 Family Phys: FRANDY KWON Charge Code: [id number] Physician: Forrest Order #: [id number] Dose#: 18.8 BONES: Degenerative changes of the spine are present most marked at the L3-4 and L4-5 levels. LUNG BASES: Normal. No visible pulmonary or pleural disease. OTHER: Negative. CONCLUSION: 1. Sigmoid diverticulitis. 2. Gallbladder calculi cannot be excluded. 3. Hypodense non cystic mass at the lateral right kidney. Further evaluation by ultrasound is recommended. Dictated by: Madie Duvall MD on 02/13/2025 at 20:11 Approved by: Madie Duvall MD on 02/13/2025 at 20:17 Normal [facility] LIPASEon 02-13-2025 Lipase [Catalytic activity/Vol] 15.0 U/L Normal 15.0 - 78.0 [facility] Comment on above: Result Comment: *PLE ASE NOTE THAT RANGES FOR LIPASE HAVE CHANGED OF 06/24/23 DUE TO AN ASSAY UPDATE BY THE RN ORTHOPEDIC.THE NEW ASSAY RANGE IS 6-250 U/L, WITH A REFERENCE RANGE OF 16-77 U/L. Performed By: #### 2 [address] ####[facility] [place] [facility],[address] [place] [address] TROPONINon 02-13-2025 HS TROPONIN 6.1 pg/mL Normal 0.0 - 51.4 [facility] Comment on above: Performed By: #### 2 [id number] #### [place] [id number] URINALYSISon 02-13-2025 Bilirubin Ql (U) Negative Normal NORMAL: NEGATIVE [facility] [place] [facility] Comment on above: Performed By: #### 2 02327 #### [facility] [place] [facility],[address] [place] [address] Clarity (U) clear Normal NORMAL: CLEAR [facility] Comment on above: Performed By: #### 2 70702 #### [facility] [place] [facility],[address] [place] [address] 79773 Color (U) p.yel Normal NORMAL: YELLOW [facility] [place] [facility] Comment on above: Performed By: #### 2 32062 #### [facility] [place] [facility],[address] [place] [address] 92465 Glucose Ql (U) NORM Normal NORMAL: NORMAL [facility] [place] [facility] Comment on above: Performed By: #### 2 69867 #### [facility] [place] [facility],[address] [place] [address] 30287 Hemoglobin Ql (U) Negative Normal NORMAL: NEGATIVE [facility] [place] [facility] Comment on above: Performed By: #### 2 72757 #### [facility] [place] [facility],[address] [place] [address] 81521 Ketone Negative Normal NORMAL: NEGATIVE [facility] [place] [facility] Comment on above: Performed By: #### 2 28514 #### [facility] [place] [facility],[address] [place] [address] 85861 Leukocytes Negative Normal NORMAL: NEGATIVE [facility] [place] [facility] Comment on above: Performed By: #### 2 09659 #### [facility] [place] [facility],[address] [place] [address] 85109 Nitrite Ql (U) Negative Normal NORMAL: NEGATIVE [facility] [place] [facility] Comment on above: Performed By: #### 2 45962 #### [facility] [place] [facility],[address] [place] [address] 02330 pH (U) 6 [pH] Normal NORMAL: 5.0-8.0 [facility] [place] [facility] Comment on above: Performed By: #### 2 92201 #### [facility] [place] [facility],[address] [place] [address] 17853 Protein Ql (U) Negative Normal NORMAL: NEGATIVE [facility] [place] [facility] Comment on above: Performed By: #### 2 49074 #### [facility] [place] [facility],[address] [place] [address] 39497 Sp [place] 1.010 Normal NORMAL: 1.010-1.030 [facility] [place] [facility] Comment on above: Performed By: #### 2 42312 #### [facility] [place] [facility],[address] [place] [address] Specimen Type R Normal [facility] Comment on above: Performed By: #### 2 59391 #### [facility] [place] [facility],[address] [place] [address] 79659 Urinalysis dipstick W Reflex Microscopic panel (U) NOT INDICATED Normal [facility] [place] [facility] Comment on above: Performed By: #### 2 11607 #### [facility] [place] [facility],[address] [place], [place] [id number] Urobilinog NORM Normal NORMAL: NORMAL [facility] Comment on above: Performed By: #### 2 17998 #### [facility],[address] [place] [address] 85286 Gastroenterology Visit Repor ton 02-07-2025 Gastroenterology Visit Report [facility]astroenterology [address] [place] [address] OFFICE VISIT Date of Service: 02/07/25 MR#: [id number] Acct: [id number] Name: RICARDA BRYSON PREMA Rep #: [id number] : 1945 Provider: ELVI rivers Age/Sex: 79/F [place] [facility] Status: Signed Intake Vital Signs 05/30/24 07:48 Height 5 ft 8 in Intake Visit Reasons: ABDOMINAL PAIN INTESTINAL PAIN Allergies amoxicillin Allergy (Intermediate, Verified 02/07/25 14:30) unknown latex Allergy (Intermediate, Verified 02/07/25 14:30) Unknown metronidazole (From Flagyl) Allergy (Intermediate, Verified 02/07/25 14:30) unknown Quinolones Allergy (Intermediate, Verified 02/07/25 14:30) unknown Sulfa (Sulfonamide Antibiotics) Allergy (Intermediate, Verified 02/07/25 14:30) unknown fentanyl Allergy (Verified 02/07/25 14:30) Angioedema nitrous oxide Allergy (Verified 02/07/25 14:30) Other soap Allergy (Uncoded 02/07/25 14:30) Other Medications ???Medication ???Instructions ???Recorded ???Confirmed ???Type acetaminophen 500 mg capsule 500 mg PO Q6H PRN pain 07/02/21 History cranberry fruit 400 mg capsule 400 mg PO DAILY 07/02/21 02/07/25 History esomeprazole magnesium 40 mg 40 mg PO DAILY 07/02/21 02/07/25 H istory capsule,delayed release (Nexium) rosuvastatin 20 mg tablet 20 mg PO DAILY 07/02/21 02/07/25 H istory aspirin-acetaminophen -caffeine 250 2 tab PO ONCE 02/14/23 02/07/25 History mg-250 mg-65 mg tablet (Excedrin Migraine) calcium-mag oxide-vitamin D3 250 1 cap PO DAILY 02/14/23 02/07/25 H istory mg-125 mg-100 unit capsule (Coral Calcium) fluticasone propionate 50 1 spray intranasal BID PRN allergy 02/14/23 02/07/25 History mcg/actuation nasal symptoms spray,suspension (Allergy Relief (fluticasone)) lifitegrast 5 % eye drops in a 1 drp ophthalmic (eye) BID 3 02/07/25 History dropperette (Xiidra) potassium 99 mg tablet 99 mg PO QDAY 02/14/23 02/07/25 Hi story triamcinolone acetonide 0.1 % 1 applic topical DAILY PRN EARS 02/07/25 History topical cream vitamin b12 1,200 unit IM Q3W 02/14/23 5 History loratadine 10 mg tablet (Claritin) 10 mg PO DAILY PRN allergy sympt oms 02/15/23 02/07/25 History escitalopram oxalate 20 mg tablet 20 mg PO QDAY 11/02/23 02/07/25 H istory lorazepam 0.5 mg tablet 0.5 mg PO PRN 11/02/23 02/07/25 Hi story cholecalciferol (vitamin D3) 25 2,000 unit PO DAILY 05/30/2402/07 History mcg (1,000 unit) capsule sucralfate 1 gram tablet 1 g PO QAC 1 week #21 tabs 5 02/07/25 Rx Have you fallen in the past year?: Yes PFSH Medical History History of steroid therapy Wears glasses Depression History of IBS Gastric reflux Former smoker History of esophageal dilatation Pernicious anemia Hiatal hernia Migraine Hyperlipidemia Anxiety Fibromyalgia Vitamin B deficiency Diverticulosis GERD (gastroesophageal reflux disease) Surgical History H/O bilateral cataract extraction History of hysterectomy History of tonsillectomy History of lumpectomy of left breast Family History Mother Hypertension Cancer Father Hypertension Sister Cancer Brother Cancer Social History Smoking Status: Current every day smoker tobacco type: cigarettes alcohol intake: never substance use type: does not use caffeine: Yes Type: coffee and tea Number of servings: 2 HPI HPI Details: RICARDA BRYSON, is a 79 F who presents to the office today for FU. *BGI established 1.7.22 with history of reflux, esophageal dysphagia s/p dilation and hiatal hernia; well managed with use of Nexium without symptoms for 10 years. History of diverticulitis with con stipation that is well managed with Colace, fiber and stress management. OV 4.. Pt states that since her EGD and colonoscopy in April 2023 she has been having issues swallowing and passing gas. Pt states that she is continuing current medication regimen. pt states that she stopped smoking in Jul 2023 and has gained 34lbs since then. Pt states that she began taking Lexapro 20mg in June 2023. OV 07.16. pt reports that she is feeling well overall and denies GI symptoms of concern at this time. Pt reports that she stopped smoking Apr 12 2023 - Apr 12 2024, and gained 50lbs; has since started smoking again and reports she has lost 12lbs. 02.07.25 OV She presents with her for exam. She states that while she was visiting her son in [place], [place], she started having severe abdominal pain and just knew it was a diverticulitis flare. She wa (more content not included)... Normal [facility] MR MRI BRAIN W/O CONTRASTon 08-17-2024 MR MRI BRAIN W/O CONTRAST [facility] [address] [place], [place] [address] Patient: RICARDA BRYSON Phone#: : 1945 Age: 79 Gender: F Pt. Type: Out Account: [id number] Location: 2 Ordering: FRANDY KWON Exam Date: 08/17/2024/13:16 Family Phys: Charge Code: 470450 Physician: Forrest Order #: [id number] Dose#: PROCEDURE: MRI BRAIN WITHOUT CONTRAST COMPARISON: None. INDICATIONS: Persistent headaches TECHNIQUE: A variety of imaging planes and parameters were utilized for visualization of suspected pathology. Images were performed without contrast. FINDINGS: CEREBRUM: Subtle focus of abnormal signal is seen on FLAIR imaging in the right parietal lobe and is nonspecific. No other abnormal foci are identified. Focus of abnormal signal may be related to remote infectious or inflammatory process or demyelinating disease. CEREBELLUM: No edema, hemorrhage, mass, acute infarction, or inappropriate atrophy. BRAINSTEM: No edema, hemorrhage, mass, acute infarction, or inappropriate atrophy. CSF SPACES: Ventricles, cisterns, and sulci are appropriate for age. No hydrocephalus, subarachnoid hemorrhage, or mass. SKULL: No mass or other significant visible lesion. SINUSES: Limited views demonstrate no significant mucosal thickening or fluid. ORBITS: Limited views are unremarkable. OTHER: Negative. CONCLUSION: 1. Subtle focus of abnormal right parietal signal on FLAIR imaging and may related to remote infectious or inflammatory process or demyelinating disease. No other abnormal focus identified. Dictated by: Madie Duvall MD on 08/24/2024 at 15:22 Approved by: Madie Duvall MD on 08/24/2024 at 15:25 Normal [facility] Gastroenterology Visit Repor ton 07-16-2024 Gastroenterology Visit Report [facility] [place] [address] OFFICE VISIT Date of Service: 07/16/24 MR#: [id number] Acct: [id number] Name: RICARDA BRYSON Rep #: [id number] : 1945 Provider: Chris Macedo DO Age/Sex: 79/F [place] [facility] Status: Signed Intake Vital Signs 05/03/23 05:51 11/02/23 07:59 05/30/24 07:48 Height 5 ft 8 in 5 ft 8 in 5 ft 8 in Intake Visit Reasons: 6 M FU Allergies amoxicillin Allergy (Intermediate, Verified 05/30/24 14:23) unknown latex Allergy (Intermediate, Verified 05/30/24 14:23) Unknown metronidazole (From Flagyl) Allergy (Intermediate, Verified 05/30/24 14:23) unknown Quinolones Allergy (Intermediate, Verified 05/30/24 14:23) unknown Sulfa (Sulfonamide Antibiotics) Allergy (Intermediate, Verified 05/30/24 14:23) unknown fentanyl Allergy (Verified 05/30/24 14:23) Angioedema nitrous oxide Allergy (Verified 05/30/24 14:23) Other soap Allergy (Uncoded 05/30/24 14:23) Other Medications ???Medication ???Instructions ???Recorded ???Confirmed ???Type acetaminophen 500 mg capsule 500 mg PO Q6H PRN pain 07/02/21 07/16/24 History cranberry 400 mg capsule 400 mg PO DAILY 07/02/21 07/16/24 History esomeprazole magnesium 40 mg 40 mg PO DAILY 07/02/21 07/16/24 History capsule,delayed release (Nexium) rosuvastatin 20 mg tablet 20 mg PO DAILY 07/02/21 07/16/24 History aspirin-acetaminophen -caffeine 250 2 tab PO ONCE 02/14/23 07/16/24 History mg-250 mg-65 mg tablet (Excedrin Migraine) calcium-mag oxide-vitamin D3 250 1 cap PO DAILY 02/14/23 07/16/24 History mg-125 mg-100 unit capsule (Coral Calcium) fluticasone propionate 50 1 spray intranasal BID PRN allergy 02/14/23 07/16/24 History mcg/actuation nasal symptoms spray,suspension (Allergy Relief (fluticasone)) lifitegrast 5 % eye drops in a 1 drp ophthalmic (eye) BID 02/14/23 07/16/24 History dropperette (Xiidra) potassium 99 mg tablet 99 mg PO QDAY 02/14/23 07/16/24 History triamcinolone acetonide 0.1 % 1 applic topical DAILY PRN EARS 02/14/23 07/16/24 History topical cream vitamin b12 1,200 unit IM Q3W 02/14/23 07/16/24 History loratadine 10 mg tablet (Claritin) 10 mg PO DAILY PRN allergy symptoms 02/15/23 07/16/24 History escitalopram oxalate 20 mg tablet 20 mg PO QDAY 11/02/23 07/16/24 History lorazepam 0.5 mg tablet 0.5 mg PO PRN 11/02/23 07/16/24 History cholecalciferol (vitamin D3) 25 2,000 unit PO DAILY 05/30/24 07/16/24 History mcg (1,000 unit) capsule Have you fallen in the past year?: No PFSH Medical History (Reviewed 11/02/23 @ 14:19 by Bibiana Brito 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, 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-C) Anxiety Depression Diverticulosis Fibromyalgia Former smoker Gastric reflux GERD (gastroesophageal reflux disease) Hiatal hernia History of esophageal dilatation History of IBS History of steroid therapy Hyperlipidemia Migraine Pernicious anemia Vitamin B deficiency Wears glasses Surgical History (Reviewed 11/02/23 @ 14:19 by Bibiana Brito 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 *BGI established 1.7.22 with history of reflux, esophageal dysphagia s/p dilation and hiatal hernia; well managed with use of Nexium without symptoms for 10 years. History of diverticulitis with constipation that is well managed with Colace, fiber and stress management. OV 4.15.24 Pt states that since her EGD and colonoscopy in April 2023 she has been having issues swallowing and passing gas. Pt states that she is continuing current medication regimen. pt states that she stopped smoking in Jul 2023 and has gained 34lbs since then. Pt states that she began taking Lexapro 20mg in June 2023. OV 1.20.25 pt reports that she is feeling well overall and denies GI symptoms of concern at this time. Pt reports that she stopped smoking Apr 12 2023 - Apr 12 2024, and gained 50lbs; has since started smoking again and reports she has lost 12lbs. ROS Const Constitutional: Positive for fatigue, headache(s) and weight change (weight gain); No fever(s) ENT ENT: Positive for headache(s); No difficulty swallowing Gastro GI: No abdominal pain, belching, bloating, change in bowel habits, change in stool character, coffee ground em (more content not included)... Normal [facility] Pulmonary Visit Reporton Pulmonary Visit Report [facility] [place] [address] [place] [address] OFFICE VISIT Date of Service: 05/30/24 MR#: [id number] Acct: [id number] Name: RICARDA BRYSON PREMA Rep #: [id number] : 1945 Provider: ELVI Brito Age/Sex: 78/F [place] [facility] Status: Signed Assessment and Plan Assessment and Plan (1) Stage 1 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: Status: Chronic Comment: FEV1 90% Plan: Asymptomatic. Not requiring any inhalers. Repeat pulmonary function test and walking oximetry. Follow-up in the office in 1 year. Contact the office with any new or worsening symptoms in the meantime. (2) Lung mass: Status: Chronic Comment: Suspect scarring Plan: Imaging indicates stability. Repeat CT of the chest in 1 year. Return to the office in 1 year to discuss test results. (3) Smoking greater than 20 pack years: Status: Chronic Plan: Lengthy discussion about the deleterious effects of ongoing smoking. Highly encouraged the patient to quit smoking. 11-minute [id number] discussion regarding nicotine withdrawal, psychological addiction to cigarettes and hand to mouth substitution such as sucker or a wooden cinnamon stick. The patient conveys understanding. Orders: Orders Low Dose CT Lung Screening 04/27/25 F17.200 - Nicotine dependence, unspecified, uncomplicated, F17.210 - Nicotine dependence, cigarettes, uncomplicated, R91.8 - Other nonspecific abnormal finding of lung field PFT Complete: DLCO, Spirometry b/a bronchodilators, lung volumes 04/27/25 J44.9 - Chronic obstructive pulmonary disease, unspecified Simple Pulmonary Exercise Test 04/27/25 J44.9 - Chronic obstructive pulmonary disease, unspecified Plan Details Follow Up: 1 Year ([facility]) HPI HPI Comments Details: This patient presents to the office today for follow-up of her COPD and to discuss test results. She is ambulatory and currently on room air. She is accompanied today by her . She has not recently been seen in the ED or urgent care for any respiratory illness since her last office visit. She has not required any antibiotics or prednisone for any breathing problems. She does report that in the spring she fell into a fire pit and suffered some physical injuries. She required physical therapy. She then had a back injury requiring additional bed rest followed by more physical therapy. The patient attributes these incidents to significant weight gain. She states that she gained about 50 pounds. She has successfully taken 10 pounds back off. She reports that because of the weight gain she decided to go back to smoking. She is not currently on any inhalers. She is compliant with Flonase and Claritin as needed. She has resumed smoking cigarettes. She is currently smoking about half a pack a day. Currently she denies any shortness of breath. She denies any wheezing, chest tightness, chest pain or palpitations. She denies any cough, sputum production or hemoptysis. She does have nasal congestion, believes it is related to seasonal allergies. She denies any fever, chills or body aches. Test results personally viewed with patient: CT scan of the chest completed at [facility] in [place] on May 04, 2024. Interpretation is available. Noted is a 14 mm groundglass nodule in the right lower lobe unchanged since previous exam. Left upper lobe is a 24 x 43 x 28 mm mass, this is heterogeneous density and similar to previous exam. A mildly irregularly shaped 7 x 4 mm nodule is present in the right lower lobe, stable from previous previous exam. Overall conclusion is right lower lobe nodules are present stable since previous exam. Left upper lobe mass is unchanged in size or contour since previous exam. Intake Vital Signs 11/02/23 07:59 05/30/24 07:48 Height 5 ft 8 in 5 ft 8 in Weight: 192 lb BMI 29.2 BP 143/82 H Blood Pressure Location Lt brachial Position Sitting Respiration 18 Pulse 73 Pulse Source Monitor Temp 95.3 F L Temperature Source Temporal Artery Pulse Oximetry (%) 98 Oxygen Delivery Method room air Intake Visit Reasons: 6 M FU Edge Worker Required: No DME Vendor: n/a Accompanied by: Is patient in pain?: No Allergies amoxicillin Allergy (Intermediate, Verified 05/30/24 14:23) unknown latex Allergy (Intermediate, Verified 05/30/24 14:23) Unknown metronidazole (From Flagyl) Allergy (Intermediate, Verified 05/30/24 14:23) unknown Quinolones Allergy (Intermediate, Verified 05/30/24 14:23) unknown Sulfa (Sulfonamide Antibiotics) Allergy (Intermediate, Verified 05/30/24 14:23) unknown fentanyl Allergy (Verified 05/30/24 14:23) Angioedema nitrous oxide Allergy (Verified 05/30/24 14:23) Other soap Allergy (Uncoded 05/30/24 14:23) Other Medications ???M (more content not included)... Normal [facility] LIPID PROFILEon 05-17-2024 Cholesterol [Mass/Vol] 149 mg/dL Normal 0 - 240 [facility] Comment on above: Performed By: #### 2 93885 #### [facility] [place] [facility],[address] [place] [address] 83581 Cholesterol in HDL [Mass/Vol] 46 mg/dL Normal 40 - 60 [facility] Comment on above: Performed By: #### 2 05624 #### [facility] [place] [facility],[address] [place] [address] 49352 Cholesterol in LDL [Mass/Vol] 67 mg/dL Normal 0 - 129 [facility] Comment on above: Performed By: #### 2 01422 #### [facility],[address] [place] [address] 83782 Cholesterol.total/Mireya sterol in HDL [Mass ratio] 3.2 {ratio} Normal 0.0 - 5.0 [facility] Comment on above: Performed By: #### 2 39347 #### [facility],[address] [place] [address] 82601 Lipid 1996 panel Normal [facility] Comment on above: Result Comment: LIPI D PROFILE Performed By: #### 2 00834 #### [facility] [place] [facility],[address] [place] [address] 80211 Triglyceride [Mass/Vol] 180 mg/dL High 0 - 150 J oel [facility] Comment on above: Performed By: #### 2 23875 #### [facility],[address] [place] [address] 66749 VITAMIN B-12on 05-17-2024 Cobalamin (Vitamin B12) [Mass/Vol] 601 pg/mL Normal 193 - 986 [facility] Comment on above: Performed By: #### 2 65670 #### [facility],[address] [place] [address] CHEST W/O CONTRASTon CT CHEST W/O CONTRAST [address] [address] Patient: RICARDA BRYSON Phone#: : 1945 Age: 78 Gender: F Pt. Type: Out Account: [id number] Location: [facility] Ordering: BIBIANA BRITO Exam Date: 05/04/2024/13:02 Family Phys: FRANDY KWON Charge Code: 191893 Physician: Forrest Order #: [id number] Dose#: 6.7 mGy PROCEDURE: CT CHEST WITHOUT CONTRAST COMPARISON: [facility], CT, CHEST W CON, 01/07/2023, 13:14. [facility], CT, CHEST W/O CON, 09/28/2023, 13:16. INDICATIONS: Nodule. TECHNIQUE: CT images were created without the administration of contrast material. All CT scans at this facility use dose modulation, iterative reconstruction, and/or weight based dosing when appropriate to reduce radiation dose to as low as reasonably achievable. IV CONTRAST: No IV contrast used,0ml TOTAL DOSE: 6.7 CTDIvol(mGy) FINDINGS: LUNGS: Irregularly shaped right lower lobe nodule is unchanged since previous exam. 14 millimeter ground-glass nodule is unchanged in size since previous exam. In the left upper lobe the mass of mixed attenuation unchanged in size or shape since previous exam. VASCULATURE: Normal. Thrombus cannot be excluded without intravenous contrast. PENG: Normal. No mass or adenopathy. MEDIASTINUM: There is suggestion of a 14 millimeter thyroid nodule at the lower pole of the right thyroid lobe unchanged since previous exam. CARDIAC: Normal. No enlargement, pericardial thickening, or significant calcification. PLEURA: Normal. No mass or effusion. AORTA: Aortic calcification is present. CHEST WALL: Normal. No mass or axillary adenopathy. LIMITED ABDOMEN: Normal. Limited images of the upper abdomen are unremarkable. BONES: Normal. No bony lesion or fracture. OTHER: Negative. CONCLUSION: 1. Stable nodules in the right lower lobe. 2. Left upper lobe mass is unchanged in size or contour since previous exam. [place] [address] Patient: RICARDA BRYSON Phone#: : 1945 Age: 78 Gender: F Pt. Type: Out Account: [id number] Location: [facility] Ordering: BIBIANA BRITO Exam Date: 05/04/2024/13:02 Family Phys: FRANDY RAYOJuan Alberto Charge Code: 902315 Physician: Forrest Order #: [id number] Dose#: 6.7 mGy Dictated by: Madie Duvall MD on 05/04/2024 at 15:47 Approved by: Madie Duvall MD on 05/04/2024 at 15:57 Normal [facility] Basophil percentageOrdered B y: Chris Friend on 05-27-2023 Basophil percentage < 1.0 mg/dL 0.55-1.02 [facility] - Chemistry and C hemistry - challengeOrdered By: Chris Macedo on 05-27-2023 GFR/1.73 sq M.predicted among non-blacks MDRD (S/P/Bld) [Vol rate/Area] 60.0000 mL/min/{1.73_m2} >60 [facility] VitD, 1,25 Dihydroxyon 01-21 1,25 Dihydroxy VitD2 <4.0 Normal [facility] Comment on above: Performed By: #### 1 25VTD #### [facility] [address] [place] [address] 1,25 Dihydroxy VitD3 47.9 pg/mL Normal [facility] Comment on above: Performed By: #### 1 25VTD #### [facility] [address] [place] [address] Vit D,1,25 DiOH Normal 15.0-60.0 [facility] Comment on above: Result Comment: 47.9 This test was developed and its performance characteristics determined by [facility]'s Guy Sergei [facility] [place] ([facility] It has not been cleared or approved by the FDA. [facility] is regulated under CLIA as qualified to perform high complexity testing. This test is used for clinical purposes. It should not be regarded as investigational or for research. Performed By: #### 1 [id number] #### [facility] [address] [address] Vital Signs Date Time Vital Sign Value Performing Clinician Hina kay 03-12-2025 15:15-0400 Body temperature 98.2 [degF] Dr. Frandy Kwon MD Work Phone: [facility] 03-12-2025 15:15-0400 Diastolic blood pressure 65 mm[Hg] Dr. Frandy Kwon MD Work Phone: [facility] 03-12-2025 15:15-0400 Heart rate 60 /min Dr. Frandy Kwon MD Work Phone: [facility] 03-12-2025 15:15-0400 Respiratory rate 18 /min Dr. Frandy Kwon MD Work Phone: [facility] 03-12-2025 15:15-0400 SaO2% (BldA) [Mass fraction] 95 % Dr. Frandy Kwon MD Work Phone: 1(914)224-142194 [place] [address] 03-12-2025 15:15-0400 Systolic blood pressure 100 mm[Hg] Dr. Frandy Kwon MD Work Phone: 1(494)011-944694 [place] [address] 03-12-2025 13:35-0400 Body height 172.[address] Frandy Kwon MD Work Phone: 5(644)048-535694 [place] [address] 03-12-2025 13:35-0400 Body mass index (BMI) [Ratio] 25.7 kg/m2 Dr. Frandy Kwon MD Work Phone: 0(734)879-291794 [place] [address] 03-12-2025 13:35-0400 Body weight 76.[address] Frandy Kwon MD Work Phone: 2(326)193-536694 [place] [address] 03-08-2025 13:44-0400 Body height 172.[address] Frandy Kwon MD Work Phone: 6(620)304-752994 [place] [address] 03-08-2025 13:44-0400 Body mass index (BMI) [Ratio] 29.2 kg/m2 Dr. Frandy Kwon MD Work Phone: 1(016)282-802294 [place] [address] 03-08-2025 13:44-0400 Body weight 87.[address] Frandy Kwon MD Work Phone: 4(160)520-206694 [place] [address] 03-08-2025 13:44-0400 Diastolic blood pressure 77 mm[Hg] Dr. Frandy Kwon MD Work Phone: 1(844)820-408094 [place] [address] 03-08-2025 13:44-0400 Heart rate 72 /min Dr. Frandy Kwon MD Work Phone: [facility] 03-08-2025 13:44-0400 Systolic blood pressure 105 mm[Hg] Dr. Frandy Kwon MD Work Phone: [facility] 05-03-2023 07:30-0500 Body temperature 97.7 [degF] Dr. Frandy Kwon Work Phone: [facility] 05-03-2023 07:30-0500 Diastolic blood pressure 49 mm[Hg] Dr. Frandy Kwon Work Phone: 4(172)659-589594 [place] [address] 05-03-2023 07:30-0500 Heart rate 60 /min Dr. Frandy Kwon Work Phone: [facility] 05-03-2023 07:30-0500 Respiratory rate 16 /min Dr. Frandy Kwon Work Phone: 3(270)117-076494 [place] [address] 05-03-2023 07:30-0500 SaO2% (BldA) [Mass fraction] 100 % Dr. Frandy Kwon Work Phone: 3(479)365-867894 [place] [address] 05-03-2023 07:30-0500 Systolic blood pressure 94 mm[Hg] Dr. Frandy Kwon Work Phone: [facility] 05-03-2023 05:51-0500 Body height 172.[address] Frandy Kwon Work Phone: [facility] 05-03-2023 05:51-0500 Body mass index (BMI) [Ratio] 24.5 kg/m2 Dr. Frandy Kwon Work Phone: [facility] 05-03-2023 05:51-0500 Body weight [address] Frandy Kwon Work Phone: [facility] 04-28-2023 06:09-0400 Body height 172.[address] Frandy Kwon Work Phone: [facility] 04-28-2023 06:09-0400 Body mass index (BMI) [Ratio] 25.7 kg/m2 Dr. Frandy Kwon Work Phone: [facility] 04-28-2023 06:09-0400 Body temperature 96.3 [degF] Dr. Frandy Kwon Work Phone: [facility] 04-28-2023 06:09-0400 Body weight 76.[address] Frandy Kwon Work Phone: [facility] 04-28-2023 06:09-0400 Diastolic blood pressure 83 mm[Hg] Dr. Frandy Kwon Work Phone: [facility] 04-28-2023 06:09-0400 Heart rate 69 /min Dr. Frandy Kwon Work Phone: [facility] 04-28-2023 06:09-0400 Respiratory rate 17 /min Dr. Frandy Kwon Work Phone: [facility] 04-28-2023 06:09-0400 SaO2% (BldA) [Mass fraction] 96 % Dr. Frandy Kwon Work Phone: [facility] 04-28-2023 06:09-0400 Systolic blood pressure 153 mm[Hg] Dr. Frandy Kwon Work Phone: [facility] 04-20-2023 12:37-0400 Body height 172.[address] Frandy Kwon Work Phone: [facility] 04-20-2023 12:37-0400 Body weight 72.[address] Frandy Kwon Work Phone: [facility] 04-20-2023 12:37-0400 Heart rate 66 /min Dr. Frandy Kwon Work Phone: [facility] 04-20-2023 12:37-0400 SaO2% (BldA) [Mass fraction] 96 % Dr. Frandy Kwon Work Phone: [facility] 02-15-2023 10:48-0400 Body mass index (BMI) [Ratio] 25.7 kg/m2 Dr. Frandy Kwon Work Phone: [facility] 02-15-2023 10:48-0400 Body temperature 97.2 [degF] Dr. Frandy Kwon Work Phone: [facility] 02-15-2023 10:48-0400 Body weight 76.[address] Frandy Kwon Work Phone: [facility] 02-15-2023 10:48-0400 Diastolic blood pressure 78 mm[Hg] Dr. Frandy Kwon Work Phone: [facility] 02-15-2023 10:48-0400 Heart rate 69 /min Dr. Frandy Kwon Work Phone: [facility] 02-15-2023 10:48-0400 Respiratory rate 18 /min Dr. Frandy Kwon Work Phone: [facility] 02-15-2023 10:48-0400 SaO2% (BldA) [Mass fraction] 97 % Dr. Frandy Kwon Work Phone: [facility] 02-15-2023 10:48-0400 Systolic blood pressure 140 mm[Hg] Dr. Frandy Kwon Work Phone: [facility] Encounters Encounter Date Encounter Type Care Provider Facility Start: 03-12-2025 [facility] Start: 03-12-2025 End: 03-12-2025 Admission to same day surgery center Chris Macedo DO -Endoscopy Work Phone: Start: 03-12-2025 End: 03-12-2025 ambulatory Frandy Kwon Facility:[facility] Start: 03-08-2025 End: 03-08-[address] Nelly Don MD -[facility] Work Phone: Start: 03-08-2025 End: 03-08-[address] Frandy Kwon MD Work Phone: -[facility] Start: 03-07-2025 End: 03-07-2025 ambulatory FRANDY KWON [facility] Start: 02-13-2025 End: 02-19-2025 ambulatory FRANDY KWON [facility] Start: 02-07-2025 End: 02-07-2025 Patient encounter procedure Nabila BOLES -[facility] Work Phone: Start: 02-07-2025 End: 02-07-[address] Frandy Kwon MD Work Phone: [facility] Start: 12-25-2024 Non-patient / Non-visit Dr. Nelly Don MD -[facility] Work Phone: Start: 08-17-2024 End: 08-17-2024 ambulatory FRANDY KWON [facility] Start: 07-16-2024 End: 07-16-2024 ambulatory Frandy Kwon Facility:[facility] Start: 05-30-2024 End: 05-30-2024 ambulatory Frandy Kwon Facility:[facility] Start: 05-17-2024 End: 05-17-2024 ambulatory FRANDY KWON [facility] Start: 05-04-2024 End: 05-04-2024 ambulatory FRANDY KWON [facility] Start: 05-03-2024 ambulatory CHRIS MACEDO [facility] Start: 05-27-2023 End: 05-27-[address] Frandy Kwon Work Phone: [facility] Work Phone: Start: 05-27-2023 End: 05-27-[address] Frandy Kwon Work Phone: [facility]-Ultrasound, [facility] Work Phone: Start: 05-03-2023 Non-patient / Non-visit Dr. Frandy Kwon Work Phone: [facility] Start: 05-03-2023 End: 05-03-2023 Admission to same day surgery center Dr. Frandy Kwon Work Phone: [facility]-Endoscopy Work Phone: Start: 04-28-2023 End: 04-28-[address] Frandy Kwon Work Phone: [facility]-Pulmonary Medicine [facility] Work Phone: Start: 04-27-2023 Non-patient / Non-visit Dr. Frandy Kwon Work Phone: [facility] Start: 04-26-2023 End: 04-26-[address] Frandy Kwon Work Phone: [facility] Work Phone: Start: 04-26-2023 End: 04-26-[address] Frandy Kwon Work Phone: [facility]-Pulmonary Services/Neurology Work Phone: Start: 04-20-2023 Non-patient / Non-visit Dr. Frandy Kwon Work Phone: [facility] Start: 04-20-2023 End: 04-20-[address] Frandy Kwon Work Phone: [facility] Work Phone: Start: 04-20-2023 End: 04-20-[address] Frandy Kwon Work Phone: [facility]-Pulmonary Services/Neurology Work Phone: Start: 04-08-2023 End: 04-08-[address] Frandy Kwon Work Phone: [facility] Work Phone: Start: 02-15-2023 End: 02-15-[address] Frandy Kwon Work Phone: [facility]-Pulmonary Medicine [facility] Work Phone: Start: 02-08-2023 End: 02-08-2023 ambulatory [facility] Work Phone: Start: 02-08-2023 End: 02-08-2023 Discharged Recurring [facility]-Physical Therapy Work Phone: Start: 07-21-2018 Patient encounter procedure Asim Mobley Facility:[facility] Start: 07-06-2018 End: 07-07-2018 Patient encounter procedure Asim Mobley Facility:[facility], Procedures Date Procedure Procedure Detail Performing Clinician Start: 03-12-[address] Frandy Kwon MD Work Phone: Start: 02-13-2025 Urinalysis FRANDY KWON Comment on above: Result Comment: URINALYSIS Performed By: #### 2 [id number] #### [facility],[address] [place] [address] Start: 05-27-2023 Computed tomography of abdomen and pelvis with contrast Dr. Frandy Kwon Work Phone: Start: 05-27-[address] elast[address] of liver Dr[address] Denis Kwon Work Phone: Plan of Treatment Date Care Activity Detail Author Start: 03-12-2025 Patient discharge [facility] Start: 05-03-2023 Colsc flx w/rmvl of tumor polyp lesion snare tq COLONOSCOPY W/LESION REMOVAL [facility] Start: 05-03-2023 Egd transoral biopsy single/multiple EGD BIOPSY SINGLE/MULTIPLE [facility] Start: 05-03-2023 Patient discharge [facility] C reactive protein [Mass/volume] in Serum or Plasma [facility] C reactive protein [Mass/volume] in Serum or Plasma [facility] CBC W Auto Different ial panel - Blood [facility] Celiac disease screen [facility] Abdomen and Pelvi s W contrast IV [facility] CT Chest WO contrast [facility] Erythrocyte sediment ation rate [facility] Erythrocyte sediment ation rate [facility] Immunoglobulin measurement [facility] Lactate dehydrogenas e measurement [facility] Lactoferrin [Presenc e] in Stool by Immunoassay [facility] Measurement of respi ratory function [facility] Patient referral [facility] Work Phone: Procedure [facility] Protein measurement [facility] Serum immunofixation [facility] Payers Date Payer Category Payer Self-pay [id number] 2023 Medicaid [id number] 2023 Unknown [id number] 2018 Medicaid 2018 Medicare 1945 Unknown [id number] 2.16.84 [id number] 1945 Unknown [id number] 2.16.84 [id number] 1945 Unknown [id number] 2.16.8 [id number] 1945 Unknown [id number] 2.16.8 [id number] 1945 Unknown [id number] 2.16.8 [id number] 1945 Unknown [id number] 2.16.8 [id number] Medicare [id number] Private Health Insurance [id number] Unknown [id number] 2.16.8 [id number] Unknown [id number] 2.16.8 [id number] Unknown [id number] 2.16.8 [id number] Unknown [id number] 2.16.8 [id number] Unknown [id number] 2.16.8 [id number] Social History Date Type Detail [facility] Work Phone: Start: 1945 Sex Assigned At Female [facility] Start: 04-08-2023 End: 04-29-2023 Tobacco smoking status NHIS Unknown if ever smoked [facility] Start: 05-30-2024 End: 03-08-2025 Tobacco smoking status NHIS Smokes tobacco daily (finding) [facility] Not [facility] Goals Date Patient Goal Desired Activity /State Mental Status Date Assessment Result Facility 03-12-2025 Cognitive function Level Of Consciousness Drowsy [facility] Work Phone: 05-03-2023 Cognitive function Level Of Consciousness Sedated [facility] Work Phone: 05-03-2023 Cognitive function Voice/Name [facility] Work Phone: Clinical Notes 02-08-2023 to 03-12-2025 Note Date & Type Note Facility 03-12-2025 Consult note [facility] 03-12-2025 Procedure note [facility] 03-12-2025 Procedure note [facility] 03-12-2025 Consult note [facility] 03-12-2025 History and physi casper note [facility] 02-07-2025 Evaluation note Diagnosis Onset Date Resolution Diverticula, colon acute February 07, 2025 2:27pm [facility] Work Phone: 1(457) 194-616708-14-2025 Evaluation note* Diagnosis Onset Date Resolution Status Admit Date Diverticula, colon acute February 07, 2025 2:27pm Abdominal pain acute March 08, 2025 1:32pm Constipation acute March 082024 1:32pm Diverticula, colon acute Septem 2024 1:32pm Pelvic and perineal pain acute March 08, 2025 1:32pm Abdominal pain acute March 12, 2025 1:14pm [facility] Work Phone: 1(671) 792-596911-01-2023 Procedure [facility] 04-21-2023 Note. MICRO - Microbiology PROCEDURE: Culture Beta Strep Only [*1] SOURCE: Throat BODY SITE: COLLECTED DATE/TIME: 04/18/2023 17:16 EDT RECEIVED DATE/TIME: 04/19/2023 11:32 EDT START DATE/TIME: 04/19/2023 11:32 EDT FREE TEXT SOURCE: FINAL REPORTS Final Report [] Verified Date/Time/Personnel: 04/21/2023 06:47 EDT No Beta Strep isolated at 48hrs. PRELIMINARY REPORTS Preliminary Report [] Verified Date/Time/Personnel: 04/20/2023 10:47 EDT No beta Strep isolated at 24 hours. Performing Locations *1: This test was performed at: [address], [facility] , [facility] ([place])04-20-2023 Procedure [facility]08-15-2023 Discharge summary Author Tate Márquez [facility] February 08, 2023 3:54pm Note Date/Time February 08, 2023 3: 54pm [facility] Physical Therapy Health[address] [place] [address] / REHABILITATION SERVICES DISCHARGE SUMMARY MR#: [id number] Acct: [id number] Name: RICARDA BRYSON Rep #: [id number] : 1945 77 From: Tate Márquez DPT, [place], CSCS Referring Dr.: Dr. Frandy Kwon MD Status : REG RCR [facility] Discharge Summary D/C summary: It has been my pleasure to treat RICARDA BRYSON referred by Dr. Frandy Kwon MD, with the diagnosis of BPPV for a total of 4 visit(s). Discharge Date: 02/08/23 Please see the following information for a summary of their discharge status. Subjective Subjective: Robyn been a slacker on my exercises. Things are harder with glasses on. Probably about the same as two weeks ago. Feels disoriented allt he time and worse with fatigue. No spinning. No falls, unsteady at times. Activities are pretty normal but wants to sit on butt alot. did exercises alot 2x/day first week adn once in past week. to doctor in March. Pain HEAD: Pain Intensity (Out of 10): 4 Overall Improvement % Improvement: 75 Objective Objective/Function: FGA is excellent and significantly better. VOR no problem. - B hallpike guerda. Goals Goal 1:: I HEP Goal Progress: Goal Met Goal 2:: Be able to walk back to the treatment room without having to hold onto partner Goal Progress: Goal Met Goal 3:: Be able to walk with horizontal head turns with no dizziness and no LOB Goal Progress: Goal Met Goal 4:: Complete horizontal VOR in standing X 1 min without any dizziness Goal Progress: Goal Met Goal 5:: Complete CATSIB and FGA Goal Progress: Goal Met Plan Plan: d/c D/C Information Discharge Comments: Pt to contact doctor if situation worsens or does not continue to improve to her satisfaction with HEP d/c sentence: If there are questions or concerns regarding this patient's physical therapy, please feel free to call me at [phone]. Thank you for the referral of thispatient. Sincerely, Tate Márquez, ONOFRE, OCS, CSCS Balance/Gait/Functional tests Balance/Special Test Scores Functional Gait Assessment Score: 29 % Disability: 3.3400 Dizziness Score: 88 <Electronically signed by Tate Willi DPT, OCS, CSCS> 02/08/23 1554 CC: Dr. Frandy Kwon MD ~ EBG Signed [facility] Work Phone: Consult note Author Jaymie Jhaveri [facility] Note Date/Time March 12, 2025 2:36pm [facility] Medical Records Department [address] [place] [address] Pre-Anesthesia Evaluation 03/12/25 1428 MR#: [id number] Acct: [id number] Name: RICARDA BRYSON Rep #:[id number] : 1945 79 From: Jaymie kauffman CRNA PCP: Dr. Frandy Kwon MD Status:R EG [facility] Race: C Location: [address] [address] ASA Classification* ASA Classification ASA Classification: 3 Assessment & Plan Anesthesia* Anesthesia Assessment Anesthesia Assessment: Discussed sedation and/or anesthesia options, risks, benefits, and alternatives with patient/parents/legal guardian/POA. Questions invited. The patient/parents/legal guardian/POA seems to understand and agrees to proceedwith anesthesia plan. Reviewed the physical assessment, medical history, allergy history and patient home medications list prior to surgery/procedure/anesthetic and documented any changes. Performed airway and anesthesia risk assessments. 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 DIVERTICULITIS 03/08/25 10:42 Any Problems With Anesthesia No 03/08/25 10:42 Cholinesterase deficiency No 03/08/25 10:42 You/Your Family Experience No 03/08/25 10:42 fever (hyperthermia) with Relationship Recent Exposure to Contagious No 05/03/23 05:51 Disease Does patient have nerve No 03/08/25 10:42 stimulator Patient instructed to have device shut off --Does patient have Pacemaker No 03/12/25 13:35 or ICD? When Was Last Pacemaker Check QUESTION #4 FULL TEXT: You/Your Family Experience fever (hyperthermia) with Anesthesia Last Oral Intake Last Oral intake: Last Oral Intake NPO since 09:30 03/12/25 13:35 Meds taken in AM with sips of Yes 03/12/25 13:35 water? 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 Female Yes 03/08/25 10:42 HX of Motion Sickness No 03/08/25 10:42 HX of N/V After Surgery No 03/08/25 10:42 Non-Smoker No 03/08/25 10:42 Duration of Surgery greater No 03/08/25 10:42 than 60 minutes Number of Risk Factors 1 03/08/25 10:42 PONV Score Low Risk 03/08/25 10:42 Height & Weight Height & Weight: Anesthesia: Height & Weight Height 5 ft 8 in 03/12/25 13:35 Weight: 76.7 kg 03/12/25 13:35 Body Mass Index (BMI) 25.7 03/12/25 13:35 Respiratory Assessment Respiratory Assessment - mill crane operator: Respiratory Tract Infection Hx - mill crane operator Hx Respiratory Tract Infection No 03/08/25 10:42 STOP Sleep Apnea STOP Sleep Apnea - mill crane operator: STOP Sleep Apnea - mill crane operator Hx Hypertension Yes: ONLY RECENTLY WITH 03/08/25 10:42 ILLNESS Hx Sleep Apnea No 03/08/25 10:42 CPAP No 03/08/25 10:42 BIPAP No 03/08/25 10:42 Do you snore loudly (louder No 03/08/25 10:42 than talking or can be heard Do you often feel tired/ Yes 03/08/25 10:42 fatigued/ sleepy during daytime? Has anyone observed you stop No 03/08/25 10:42 breathing during sleep? STOP Results Positive 03/08/25 10:42 QUESTION #5 FULL TEXT : Do you snore loudly (louder than talking or can be heard through closed doors)? 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 Specify any problems Hx of Preganancy in last 3 No 03/08/25 10:42 Months Nurse Filling Out Transfusion DSCHRIBER 03/08/25 10:42 & Questions: Date: 03/08/25 03/08/25 10:42 Time: 10:46 03/08/25 10:42 Patient unable to answer at this time (ie. 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 Nelly Don MD) Constipation GERD (gastroesophageal reflux disease) Diverticulitis UTI (urinary tract infection) Post-menopausal atrophic vaginitis Pelvic and perineal pain Complex renal cyst Wears glasses Cancer Pernicious anemia Hepatitis Hoarseness Syncope Hypotension Dietary restriction History of hiatal hernia History of ulceration History of diverticulitis Smoker Abdominal pain History of edema Depression History of IBS Gastric reflux History of esophageal dilatation Migraine Hyperlipidemia Anxiety Fibromyalgia Vitamin B deficiency Diverticulosis Home Medications ?Medication ?Instructions ?Recorded ?Last Taken ?Type acetaminophen 500 mg capsule 500 mg PO Q6H PRN pain 03/12/25 09:30 History cranberry fruit 400 mg capsule 400 mg PO BID 07/02/21 Unknown History esomeprazole magnesium 40 mg 40 mg PO DAILY 07/02/21 0 03/12/25 09:30 History capsule,delayed release (Nexium) rosuvastatin 20 mg tablet 20 mg PO DAILY 07/02/21 Unkn own History [id number]-qydmticktbpzs-qwzoxqlg 250 2 tab PO Q6H PRN pa in 02/14/23 Unknown History mg-250 mg-65 mg tablet (Excedrin Migraine) Held on 03/12/25. Instructions: Order Changed calcium-mag oxide-vitamin D3 250 1 cap PO BID 02/14/23 Unknown History mg-125 mg-100 unit capsule (Coral Calcium) fluticasone propionate 50 1 spray intranasal Q12H ramana rgy 02/14/23 Unknown History mcg/actuation nasal symptoms spray,suspension (Allergy Relief (fluticasone)) lifitegrast 5 % eye drops in a 1 drp ophthalmic (eye) BID 02/14/23 Unknown History dropperette (Xiidra) potassium 99 mg tablet 99 mg PO QDAY 02/14/23 Unkno wn History triamcinolone acetonide 0.1 % 1 applic topical DAILY P RN EARS 02/14/23 Unknown History topical cream vitamin b12 1,200 unit IM Q3W 02/14/23 U nknown History escitalopram oxalate 20 mg tablet 20 mg PO QDAY Unknown History lorazepam 0.5 mg tablet 0.5 mg PO Q6H PRN anxiety 03/12/25 09:30 History cholecalciferol (vitamin D3) 25 2,000 unit PO DAILY Unknown History mcg (1,000 unit) capsule Lactobacillus acidophilus 10 mg PO DAILY 03/08/2502/25 09:30 History (Acidophilus capsule) docusate sodium 100 mg capsule 100 mg PO BID 03/08/25 Unknown History (Colace) simethicone 80 mg chewable tablet 80 mg PO BID PRN abd ominal 03/08/25 Unknown History distention Allergy/AdvReac Type Severity Reaction Status Date / Time amoxicillin Allergy Intermediate unknown Verified 03/12/25 13:34 latex Allergy Intermediate Unknown Verified 03/12/25 13:34 metronidazole (From Flagyl) Allergy Intermediate unknown Verified 03/12/25 13:34 Quinolones Allergy Intermediate unknown Verified 03/12/25 13:34 Sulfa (Sulfonamide Allergy Intermediate unknown Verified 03/12/25 13:34 Antibiotics) fentanyl Allergy Angioedema Verified 03/12/25 13:34 nitrous oxide Allergy Other Verified 03/12/25 13:34 soap Allergy Other Uncoded 03/08/25 13:43 Family History (Updated 03/08/25 @ 12:31 by Lyn Garcia) Mother Hypertension Cancer Father Hypertension Sister Cancer Brother Cancer Other Heart disease Skin cancer Surgical History (Updated 03/08/25 @ 10:56 by Sherrill Mayer) Hx of melanoma excision Hx of colonoscopy H/O bilateral cataract extraction History of hysterectomy History of tonsillectomy History of lumpectomy of left breast Social History (Updated 03/08/25 @ 12:32 by Lyn Garcia) Smoking Status: Current every day smoker tobacco type: cigarettes alcohol intake: never substance use type: does not use caffeine: Yes Type: coffee and tea Number of servings: 2 what type of physical activity do you participate in: none and other frequency: other duration: other do you feel safe at home: Yes Review of Systems (Anesthesia) ROS Narrative System reviewed and no additional complaints, except as documented. 03/12/25 1436 <Electronically signed by Jaymie george CRNA> Date _ Jaymie Jhaveri CRNA Cosigner Signature: Date CC: ~ Signed [facility] Work Phone: Consult note Author Pierre Flor [facility] Note Date/Time March 12, 2025 3:07pm [facility] Medical Records Department [address] [address] Anesthesia Postop Eval I 03/12/25 1505 MR#: [id number] Acct: [id number] Name: RICARDA BRYSON Rep #:[id number] : 1945 79 From: Pierre Flor PCP: Dr. Frandy Kwon MD Status:R EG SDC Y Race: C Location: [place] [address] Anesthesia: Postop Eval I Current Vital Signs Temperature: 97 F Pulse Rate: 56 Blood Pressure: 92/57 Respiratory Rate: 16 Pulse Ox: 98 Oxygen Delivery Method: Room Air Assessment Airway patent: Yes Spontaneous unlabored respirations: Yes Mental status: Asleep nausea: No Vomiting: No Anesthesia Complication: No Fluid Hydration Crystalloid volume administer (ml): 300 Total IV fluid infused: 300 Progress Note Anesthesia document: Postop Eval 1 completed: Yes 03/12/25 3678 <Electronically signed by Pierre Flor > Date _ Pierre Fangigncarmelita Signature: Date CC: ~ Signed [facility] Work Phone: evaluation noteNo assessment information available [facility] Work Phone: evaluation note* Diagnosis Onset Date Resolution Status Dyspnea acute Lung mass acute Hiatal hernia acute Pernicious anemia [facility] Work Phone: evaluation note* Diagnosis Onset Date Resolution Status Dyspnea acute Lung mass acute Hiatal hernia acute Pernicious anemia acute Lung mass acute Stage 1 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 acute [facility] Work Phone: Evaluation note* Diagnosis Onset Date Resolution Status Admit Date Diverticula, colon acute February 07, 2025 2:27pm [facility] Work Phone: History and physical note Author Chris Friend [facility] Note Date/Time March 12, 2025 2:34pm [facility] Medical Records Department [address] [place] [address] History & Physical Exam 03/12/25 1432 MR#: [id number] Acct: [id number] Name: RICARDA BRYSON PREMA Rep #:[id number] : 1945 79 From: Chris Friend DO PCP: Dr. Frandy Kwon MD Status:R [facility] Location: [place] [address] HPI - General General Date of Admission: 03/12/25 Date of Service: 03/12/25 Chief Complaint: abdominal pain HPI Narrative RICARDA BRYSON, is a 79 F who presents for the evaluation of abdominal pain *BGI established 1.7.22 with history of reflux, esophageal dysphagia s/p dilation and hiatal hernia; well managed with use of Nexium without symptoms for10 years. History of diverticulitis with constipation that is well managed with Colace, fiber and stress management. OV 4.15.24 Pt states that since her EGD and colonoscopy in April 2023 she hasbeen having issues swallowing and passing gas. Pt states that she is continuing current medication regimen. pt states that she stopped smoking in Jul 2023 and has gained 34lbs since then. Pt states that she began taking Lexapro 20mg in June 2023. OV 07.16.24 pt reports that she is feeling well overall and denies GI symptoms ofconcern at this time. Pt reports that she stopped smoking Apr 12 2023 - Apr 12 2024, and gained 50lbs; has since started smoking again and reports she haslost 12lbs. 02.07.25 OV She presents with her for exam. She states that [place] she [place]vis[place] in [place], she started having severe abdominal pain and just knew it was a diverticulitis flare. She was admitted to [facility] on 12.15.24 for treatment and then again on 01.12.25, to treat diverticulitis. She was given ertapenem, instead of her normal doxycycline to treat the diverticulitis and feels this antibiotic really messed her up. I don't know why they didn't listen to me and just give me the doxycycline. She is following up with her care team as suggested by the [facility]. She reports that she's been nauseous all day, every day, with severe lower and epigastric abdominal pains, and left kidney pain since she left that hospital. She states that she is living on Tums, Tylenol, GasX, and Colace. She reports taking Tylenol every 4 to 6 hours, starting the day with an Excedrin Migraine. [facility] Medical History Constipation GERD (gastroesophageal reflux disease) Diverticulitis UTI (urinary tract infection) Post-menopausal atrophic vaginitis Pelvic and perineal pain Complex renal cyst Wears glasses Cancer Pernicious anemia Hepatitis Hoarseness Syncope Hypotension Dietary restriction History of hiatal hernia History of ulceration History of diverticulitis Smoker Abdominal pain History of edema Depression History of IBS Gastric reflux History of esophageal dilatation Migraine Hyperlipidemia Anxiety Fibromyalgia Vitamin B deficiency Diverticulosis Home Medications ?Medication ?Instructions ?Recorded ?Last Taken ?Type acetaminophen 500 mg capsule 500 mg PO Q6H PRN pain 03/12/25 09:30 History cranberry fruit 400 mg capsule 400 mg PO BID 07/02/21 Unknown History esomeprazole magnesium 40 mg 40 mg PO DAILY 07/02/21 0 03/12/25 09:30 History capsule,delayed release (Nexium) rosuvastatin 20 mg tablet 20 mg PO DAILY 07/02/21 Unkn own History xtouwpa-bnklmhdprvpup-sbdtgxjd 250 2 tab PO Q6H PRN pa in 02/14/23 Unknown History mg-250 mg-65 mg tablet (Excedrin Migraine) Held on 03/12/25. Instructions: Order Changed calcium-mag oxide-vitamin D3 250 1 cap PO BID 02/14/23 Unknown History mg-125 mg-100 unit capsule (Coral Calcium) fluticasone propionate 50 1 spray intranasal Q12H ramana rgy 02/14/23 Unknown History mcg/actuation nasal symptoms spray,suspension (Allergy Relief (fluticasone)) lifitegrast 5 % eye drops in a 1 drp ophthalmic (eye) BID 02/14/23 Unknown History dropperette (Xiidra) potassium 99 mg tablet 99 mg PO QDAY 02/14/23 Unkno wn History triamcinolone acetonide 0.1 % 1 applic topical DAILY P RN EARS 02/14/23 Unknown History topical cream vitamin b12 1,200 unit IM Q3W 02/14/23 U nknown History escitalopram oxalate 20 mg tablet 20 mg PO QDAY Unknown History lorazepam 0.5 mg tablet 0.5 mg PO Q6H PRN anxiety 03/12/25 09:30 History cholecalciferol (vitamin D3) 25 2,000 unit PO DAILY Unknown History mcg (1,000 unit) capsule Lactobacillus acidophilus 10 mg PO DAILY 03/08/2502/25 09:30 History (Acidophilus capsule) docusate sodium 100 mg capsule 100 mg PO BID 03/08/25 Unknown History (Colace) simethicone 80 mg chewable tablet 80 mg PO BID PRN abd ominal 03/08/25 Unknown History distention Allergy/AdvReac Type Severity Reaction Status Date / Time amoxicillin Allergy Intermediate unknown Verified 03/12/25 13:34 latex Allergy Intermediate Unknown Verified 03/12/25 13:34 metronidazole (From Flagyl) Allergy Intermediate unknown Verified 03/12/25 13:34 Quinolones Allergy Intermediate unknown Verified 03/12/25 13:34 Sulfa (Sulfonamide Allergy Intermediate unknown Verified 03/12/25 13:34 Antibiotics) fentanyl Allergy Angioedema Verified 03/12/25 13:34 nitrous oxide Allergy Other Verified 03/12/25 13:34 soap Allergy Other Uncoded 03/08/25 13:43 Family History Mother Hypertension Cancer Father Hypertension Sister Cancer Brother Cancer Other Heart disease Skin cancer Surgical History Hx of melanoma excision Hx of colonoscopy H/O bilateral cataract extraction History of hysterectomy History of tonsillectomy History of lumpectomy of left breast Social History Smoking Status: Current every day smoker tobacco type: cigarettes alcohol intake: never substance use type: does not use caffeine: Yes Type: coffee and tea Number of servings: 2 what type of physical activity do you participate in: none and other frequency: other duration: other do you feel safe at home: Yes ROS Constitutional Constitutional: Denies fatigue, fever(s), poor appetite, weight gain or weight loss Gastrointestinal Gastrointestinal: Denies belching, bloating, change in bowel habits, change in stool character, chewing difficulty, coffee ground emesis, constipation, cramping, diarrhea, dyspepsia, dysphagia, early satiety, excessive flatus, fecalincontinence, heartburn, hematemesis, hematochezia, hemorrhoids, loose stools, melena, nausea, odynophagia, rectal bleeding, tenesmus, vomiting or weight changes Vital Signs Vital Signs Vital Signs: 03/12/25 13:35 03/12/25 13:35 Temperature 98.1 F Temperature Source Temporal Pulse Rate 69 Respiratory Rate 18 Respiratory Pattern Irregular Blood Pressure 133/85 H Blood Pressure Mean 101 Blood Pressure Source Monitor Blood Pressure Position Semi-Fowlers Blood Pressure Location Left Arm Pulse Ox 98 Oxygen Delivery Method Room Air Weight Weight: 169 lb 1.513 oz Body Mass Index (BMI) 25.7 Physical Exam Const alert, oriented x3, no apparent distress and healthy appearing General Appearance: cooperative GI normal to inspection, nondistended, normoactive bowel sounds, soft to palpation,non-tender and non-distended Percussion: normal to percussion Rectal Exam: deferred Assessment & Plan Assessment/Plan (1) Abdominal pain: PLAN: Plan Assessment and Plan Assessment and Plan (1) Diverticula, colon: Status: Acute Orders: Orders Abdomen/Pelvis WITH Contrast Today K57.30 - Diverticulosis of large intestine without perforation or abscess without bleeding Medications: New sucralfate 1 g PO QAC 21 tabs 0RF 1 week Plan RICARDA BRYSON, is a 79 F who presents to the office today for FU. Discussed careplan with her and her . Epigastric abdominal pain is most likely gastritis due to medications. She states I'll keep a stack of your orders, but I'm not getting anything done until I've seen all of my providers. And then I'lldo everything at once at [facility]. There's no way I'm ever doing another colonoscopy, but I'll have the upper scope. * schedule EGD * sucralfate 1gm PO QAC, take 1hr after other medications or wait 3 hrs * CT abd/pelvis w/IV and PO contrast * office FU 2wks after EGD 03/12/25 1434 <Electronically signed by Chris Macedo DO> Cosigner Signature (if applicable): CC: Dr. Frandy Kwon MD; Chris Friend, DO~ Signed [facility] Work Phone: Reason for referral (narrative)No reason for referral information availableNew [facility]ford [facility] Work Phone: Summary Purpose Family History Relationship Condition Age at Onset Recorded Date/T jacquelin mother Hypertension Unknown Malignant neoplasm Unknown father Hypertension Unknown sister Malignant neoplasm Unknown brother Malignant neoplasm Unknown Relationship Condition Age at Onset Recorded Date/T jacquelin Not Specified Malignant neoplasm of skin Unknown Heart disease Unknown mother Hypertension Unknown Malignant neoplasm Unknown father Hypertension Unknown sister Malignant neoplasm Unknown brother Malignant neoplasm Unknown Advance Directives Advance Directive Response Recorded Date/ Time Living Will No April 29 12:32pm Power of Mortgage Accounting Clerk No April 29, 2023 12:32pm Advance Directive Response Recorded Date/ Time Do you have a Healthcare Power of Mortgage Accounting Clerk? No March 08, 2025 10:42am Chief Complaint and Reason for Visit Chief Complaint Admit Date ABDOMINAL PAIN INTESTINAL PAIN February 072024 2:27pm cyst March 08, 2025 1:32pm Reason for Visit Admit Date Diverticula, colon February 07, 2025 2: 27pm Chief Complaint VESTIBULAR/RX HERE Chief Complaint VESTIBULAR/RX HERE Lung Mass FU Dyspnea, unspecified Dyspnea, unspecified Reason for Visit Dyspnea Lung mass Hiatal hernia Pernicious anemia Chief Complaint VESTIBULAR/RX HERE Lung Mass FU Dyspnea, unspecified Dyspnea, unspecified Dyspnea, unspecified Dyspnea, unspecified 3 M FU Reason for Visit Dyspnea Lung mass Hiatal hernia Pernicious anemia Lung mass Stage 1 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 Chief Complaint VESTIBULAR/RX HERE Lung Mass FU Dyspnea, unspecified Dyspnea, unspecified Dyspnea, unspecified Dyspnea, unspecified 3 M FU ESOPHAGEAL VARICES Reason for Visit Dyspnea Lung mass Hiatal hernia Pernicious anemia Lung mass Stage 1 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 Chief Complaint Admit Date ABDOMINAL PAIN INTESTINAL PAIN February 072024 2:27pm Reason for Visit Admit Date Diverticula, colon February 07, 2025 2: 27pm Abdominal pain March 08, 2025 1:32pm Constipation March 08, 2025 1:32pm Diverticula, colon March 08, 2025 1:32pm Pelvic and perineal pain March 08, 2025 1:32pm Abdominal pain March 12, 2025 1:14pm Additional Source Comments INFORMATION SOURCE (unrecogn ized section and content) DATE CREATED AUTHOR 08/02/2018 [facility] DATE CREATED AUTHOR AUTHOR'S ORGANIZ ATION 01/22/2020 [facility] DATE CREATED AUTHOR AUTHOR'S ORGANIZ ATION 04/22/2023 [facility] ([place]) DATE CREATED AUTHOR AUTHOR'S ORGANIZ ATION 03/09/2025 [facility] DATE CREATED AUTHOR AUTHOR'S ORGANIZ ATION 03/11/2025 [facility] Teams (unrecognized sec tion and content) Team Status: Active Member Role Status Dates Dr. Frandy Kwon MD Primary Care Provider Active Team Status: Inactive Member Role Status Dates Dr. Frandy Kwon MD Primary Care P rokeikoder, Attending Provider, Referring Provider Active Team Status: Inactive Member Role Status Dates Dr. Frandy Kwon MD Primary Care Provider, Refer ring Provider Active Dr. Chris Macedo DO Attending Provider Active Team Status: Inactive Member Role Status Dates Dr. Frandy Kwon MD Primary Care Provider, Refer ring Provider Active Dr. Jamar Melvin MD Attending Provider Active Team Status: Active Member Role Status Dates Dr. Frandy Kwon MD Primary Care Provider Active Dr. Jamar Melvin MD Attending Provider , Referring Provider, Other Provider Active Team Status: Inactive Member Role Status Dates Dr. Frandy Kwon MD Primary Care Provider Active Dr. Jamar Melvin MD Attending Provider, Referring Pr ovider Active Team Status: Active Member Role Status Dates Dr. Frandy Kwon MD Primary Care Provider Active Dr. Jamar Melvin MD Referring Provider, Other Provid er Active Dr. Mario Wetzel DO Attending Provider Active Team Status: Active Member Role Status Dates Dr. Frandy Kwon MD Primary Care Provider, Refer ring Provider Active Dr. Chris Macedo DO Attending Provider, Other Prov ider Active Team Status: Inactive Member Role Status Dates Dr. Frandy Kwon MD Primary Care Provider Active Dr. Chris Macedo DO Attending Provider, Referring Provider Active Team Status: Active Member Role/Relationship Status Dates Dr. Frandy Kwon MD Primary Care Provider Active Team Status: Inactive Member Role/Relationship Status Dates Dr. Frandy Kwon MD Primary Care Provider Active Start: December 25, 2024 Dr. Nelly Don MD Attending Provider Active Start: December 25, 2024 Team Status: Inactive Member Role/Relationship Status Dates Dr. Frandy Kwon MD Primary Care Provider Active Start: February 07, 2025 End: February 07, 2025 Dr. Frandy Kwon MD Referring Provider Active Start: February 07, 2025 End: February 07, 2025 ELVI Carey Attending Provider Active S tart: February 07, 2025 End: February 07, 2025 Team Status: Inactive Member Role/Relationship Status Dates Dr. Frandy Kwon MD Primary Care Provider Active Start: March 08, 2025 End: March 08, 2025 Dr. Frandy Kwon MD Referring Provider Active Start: March 08, 2025 End: March 08, 2025 Dr. Nelly Don MD Attending Provider Active Start: March 08, 2025 End: March 08, 2025 Team Status: Inactive Member Role/Relationship Status Dates Dr. Frandy Kwon MD Primary Care Provider Active Start: March 12, 2025 End: March 12, 2025 Dr. Frandy Kwon MD Referring Provider Active Start: March 12, 2025 End: March 12, 2025 Dr. Chris Macedo DO Attending Provider Active Start: March 12, 2025 End: March 12, 2025 Team Status: Active Member Role/Relationship Status Dates Dr. Frandy Kwon MD Primary Care Provider Active Start: March 12, 2025 Dr. Frandy Kwon MD Referring Provider Active Start: March 12, 2025 Dr. Chris Macedo DO Attending Provider Active Start: March 12, 2025 Dr. Chris Macedo DO Other Provider Active St art: March 12, 2025 Goals (unrecognized section and content) Goals may be documented in a n alternate sectionGoals may be documented in an alternate sectionGoals may be documented in an alternate sectionGoals may be documented in an alternate sectionGoals may be documented in an alternate section FOR RECORDS PERTAINING TO PATIENTS WHO ARE OR HAVE BEEN ENROLLED IN A CHEMICAL DEPENDENCY/SUBSTANCEABUSE PROGRAM, SOME INFORMATION MAY BE OMITTED. This clinical summary was aggregated from multiple sources. Caution should be exercised in using it in the provision of clinical care. This summary normalizes information from multiple sources, and as a consequence, information in this document may materially change the coding, format and clinical context of patient data. In addition, data may be omitted in some cases. CLINICAL DECISIONS SHOULD BE BASED ON THE PRIMARY CLINICAL RECORDS. [facility] [employer] [facility]. provides no warranty or guarantee of the accuracy or completeness of information in this document.
== END 2025-03-12 16:03 | disposition home or self-care (01) ==
LOC: EN 13:15 → AC 13:17
PROVIDERS: PCP Student in an Organized Health Care Education/Training Program; Referring Provider Student in an Organized Health Care Education/Training Program; Visit Provider Internal Medicine Gastroenterology
PROC: 0DJ08ZZ Inspection of Upper Intestinal Tract, Via Natural or Artificial Opening Endoscopic (ICD-10-PCS; CPT 43235; principal; 2025-03-12 14:10)
DX: R10.13 Epigastric pain (principal); K21.9 Gastro-esophageal reflux disease without esophagitis; K57.30 Diverticulosis of large intestine without perforation or abscess without bleeding; E78.5 Hyperlipidemia, unspecified; Z79.899 Other long term (current) drug therapy; K29.50 Unspecified chronic gastritis without bleeding; F41.9 Anxiety disorder, unspecified; Z98.41 Cataract extraction status, right eye; Z98.42 Cataract extraction status, left eye; Z90.710 Acquired absence of both cervix and uterus; F17.210 Nicotine dependence, cigarettes, uncomplicated; K22.89 Other specified disease of esophagus
CPT/HCPCS: 43239; 88305; 88342; J2405

== ENCOUNTER 2025-04-23 10:47 | Day surgery (SDC) | payer MEDICARE, MEDICAID, SELFPAY ==
[2025-04-23] VITALS (7 sets, daily range): BP systolic 80–134; BP diastolic 5–81; PULSE 52–63; RESP 16; TEMP 36.3–36.6; O2SAT 95–99; BMI 25.8
[2025-04-23] MEDS: Lactated Ringers 1,000 ML 15 ML IV (11:21)
--- NOTE | 2025-04-23 11:30 | PCM.PRE.AN2 ---
ASA Classification* ASA Classification ASA Classification: 2 Assessment & Plan Anesthesia* Anesthesia Assessment Anesthesia Assessment: Discussed sedation and/or anesthesia options, risks, benefits, and alternatives with patient/parents/legal guardian/POA. Questions invited. The patient/parents/legal guardian/POA seems to understand and agrees to proceed with anesthesia plan. Reviewed the physical assessment, medical history, allergy history and patient home medications list prior to surgery/procedure/anesthetic and documented any changes. Performed airway and anesthesia risk assessments. Anesthesia Type Anesthesia Type: MAC History Source History Obtained from:: Patient and Chart Anesthesia Focused Assessment* Temperature: 97.3 F Pulse Rate: 63 Blood Pressure: 134/76 Respiratory Rate: 16 Pulse Ox: 99 Oxygen Delivery Method: Room Air Airway Assessment Mouth opens: >3 cm Mallampati Score: II Teeth Condition: Caps/Crowns Neck Range of motion (ROM): Limited ROM Labs Anesthesia Preop lab: CBC CHEMISTRY COAG Pre-Assessment Diagnosis/Proposed Procedure Planned Operative Procedure(s): FLEXIBLE SIGMOIDOSCOPY Anesthesia History Anesthesia History - braid folder: Anesthesia History - braid folder Hx Hospitalization No 04/19/25 13:38 Any Problems With Anesthesia No 04/19/25 13:38 Cholinesterase deficiency No 04/19/25 13:38 You/Your Family Experience No 04/19/25 13:38 fever (hyperthermia) with Relationship Recent Exposure to Contagious No 04/23/25 11:06 Disease Does patient have nerve No 04/19/25 13:38 stimulator Patient instructed to have device shut off --Does patient have Pacemaker No 04/23/25 11:06 or ICD? When Was Last Pacemaker Check QUESTION #4 FULL TEXT: You/Your Family Experience fever (hyperthermia) with Anesthesia Last Oral Intake Last Oral intake: Last Oral Intake NPO since 09:00 04/23/25 11:06 Meds taken in AM with sips of water? Meds patient instructed to take am of surgery PONV PONV - braid folder: PONV - braid folder Female Yes 04/19/25 13:38 HX of Motion Sickness Yes 04/19/25 13:38 HX of N/V After Surgery No 04/19/25 13:38 Non-Smoker No 04/19/25 13:38 Duration of Surgery greater No 04/19/25 13:38 than 60 minutes Number of Risk Factors 2 04/19/25 13:38 PONV Score Moderate Risk 04/19/25 13:38 Height & Weight Height & Weight: Anesthesia: Height & Weight Height 5 ft 8 in 04/23/25 11:06 Weight: 77 kg 04/23/25 11:06 Body Mass Index (BMI) 25.8 04/23/25 11:06 Respiratory Assessment Respiratory Assessment - braid folder: Respiratory Tract Infection Hx - braid folder Hx Respiratory Tract Infection No 04/19/25 13:38 STOP Sleep Apnea STOP Sleep Apnea - braid folder: STOP Sleep Apnea - braid folder Hx Hypertension No 04/19/25 13:38 Hx Sleep Apnea No 04/19/25 13:38 CPAP No 04/19/25 13:38 BIPAP No 04/19/25 13:38 Do you snore loudly (louder No 04/19/25 13:38 than talking or can be heard Do you often feel tired/ Yes 04/19/25 13:38 fatigued/ sleepy during daytime? Has anyone observed you stop No 04/19/25 13:38 breathing during sleep? STOP Results Negative 04/19/25 13:38 QUESTION #5 FULL TEXT : Do you snore loudly (louder than talking or can be heard through closed doors)? 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 Specify any problems Hx of Preganancy in last 3 No 04/19/25 13:38 Months Nurse Filling Out Transfusion DSCHRIBER 04/19/25 13:38 & Questions: Date: 04/19/25 04/19/25 13:38 Time: 13:40 04/19/25 13:38 Patient unable to answer at this time (ie. confused, unrespo /Reproduction History /Reproductive History - braid folder: /Reproductive Hx- braid folder Hx Now No 04/19/25 13:38 Gestational Age (in weeks): EDC: Hx Hx Para Hx Section SAB No 04/19/25 13:38 Active Medications Active Medications: Current Medications Generic Name Dose Route Start Last Admin Trade Name Freq PRN Reason Stop Dose Admin Lactated Ringer's 1,000 mls @ 15 mls/hr 04/23/25 11:00 04/23/25 11:21 IV 15 mls/hr .Q48H VIDAL Administration PFSH Medical History Constipation GERD (gastroesophageal reflux disease) Diverticulitis Post-menopausal atrophic vaginitis Pelvic and perineal pain Complex renal cyst Wears glasses Cancer Pernicious anemia Hepatitis Syncope Hypotension Dietary restriction History of hiatal hernia History of ulceration History of diverticulitis Smoker Abdominal pain History of edema Depression History of IBS Gastric reflux History of esophageal dilatation Migraine Hyperlipidemia Anxiety Fibromyalgia Vitamin B deficiency Diverticulosis Home Medications Medication Instructions Recorded Last Taken Type acetaminophen 500 mg capsule 500 mg PO Q6H PRN pain 07/02/21 04/23/25 08:00 History cranberry fruit 400 mg capsule 400 mg PO BID 07/02/21 Unknown History esomeprazole magnesium 40 mg 40 mg PO DAILY 07/02/21 04/23/25 08:00 History capsule,delayed release (Nexium) rosuvastatin 20 mg tablet 20 mg PO DAILY 07/02/21 Unknown History hrshoml-fwrkqltoocqch-yszzpnjf 250 2 tab PO Q6H PRN pain 02/14/23 Unknown History mg-250 mg-65 mg tablet (Excedrin Migraine) calcium-mag oxide-vitamin D3 250 1 cap PO BID 02/14/23 Unknown History mg-125 mg-100 unit capsule (Coral Calcium) fluticasone propionate 50 1 spray intranasal Q12H PRN 02/14/23 Unknown History mcg/actuation nasal allergy symptoms spray,suspension (Allergy Relief (fluticasone)) lifitegrast 5 % eye drops in a 1 drp ophthalmic (eye) BID 02/14/23 Unknown History dropperette (Xiidra) potassium 99 mg tablet 99 mg PO QDAY 02/14/23 Unknown History triamcinolone acetonide 0.1 % 1 applic topical DAILY PRN EARS 02/14/23 Unknown History topical cream vitamin b12 1,200 unit IM Q3W 02/14/23 Unknown History escitalopram oxalate 20 mg tablet 20 mg PO QDAY 11/02/23 04/23/25 08:00 History lorazepam 0.5 mg tablet 0.5 mg PO Q6H PRN anxiety 11/02/23 03/12/25 09:30 History cholecalciferol (vitamin D3) 25 2,000 unit PO DAILY 05/30/24 Unknown History mcg (1,000 unit) capsule Lactobacillus acidophilus 10 mg PO DAILY 03/08/25 03/12/25 09:30 History (Acidophilus capsule) docusate sodium 100 mg capsule 100 mg PO BID 03/08/25 Unknown History (Colace) simethicone 80 mg chewable tablet 80 mg PO BID PRN abdominal 03/08/25 Unknown History distention nystatin 100,000 unit/gram topical 1 applic topical DAILY 04/19/25 Unknown History powder Allergy/AdvReac Type Severity Reaction Status Date / Time amoxicillin Allergy Intermediate unknown Verified 04/23/25 11:10 latex Allergy Intermediate Unknown Verified 04/23/25 11:10 metronidazole (From Flagyl) Allergy Intermediate unknown Verified 04/23/25 11:10 Quinolones Allergy Intermediate unknown Verified 04/23/25 11:10 Sulfa (Sulfonamide Allergy Intermediate unknown Verified 04/23/25 11:10 Antibiotics) fentanyl Allergy Angioedema Verified 04/23/25 11:10 nitrous oxide Allergy Other Verified 04/23/25 11:10 soap Allergy Other Uncoded 03/08/25 13:43 Family History Mother Hypertension Cancer Father Hypertension Sister Cancer Brother Cancer Other Heart disease Skin cancer Surgical History History of esophagogastroduodenoscopy (EGD) Hx of melanoma excision Hx of colonoscopy H/O bilateral cataract extraction History of hysterectomy History of tonsillectomy History of lumpectomy of left breast Social History Smoking Status: Current every day smoker tobacco type: cigarettes alcohol intake: never substance use type: does not use caffeine: Yes Type: coffee and tea Number of servings: 2 what type of physical activity do you participate in: none and other frequency: other duration: other do you feel safe at home: Yes Review of Systems (Anesthesia) ROS Narrative System reviewed and no additional complaints, except as documented.
--- NOTE | 2025-04-23 11:52 | PCM.HP.STD ---
HPI - General General Date of Admission: 04/23/25 Date of Service: 04/23/25 Chief Complaint: rectal mass HPI Narrative HPI HPI Details: RICARDA BRYSON, is a 79 F who presents to the office today for follow up. *BG[facility] established 07.03.21 with history of reflux, esophageal dysphagia s/p dilation and hiatal hernia; well managed with use of Nexium without symptoms for 10 years. History of diverticulitis with constipation that is well managed with Colace, fiber and stress management. OV 10.10.23 Pt states that since her EGD and colonoscopy in April 2023 she has been having issues swallowing and passing gas. Pt states that she is continuing current medication regimen. pt states that she stopped smoking in Jul 2023 and has gained 34lbs since then. Pt states that she began taking Lexapro 20mg in June 2023. OV 07.16.24 pt reports that she is feeling well overall and denies GI symptoms of concern at this time. Pt reports that she stopped smoking Apr 12 2023 - Apr 12 2024, and gained 50lbs; has since started smoking again and reports she has lost 12lbs. 02.07.25 OV She presents with her for exam. She states that while she was visiting her son in [place], [place], she started having severe abdominal pain and "just knew it was a diverticulitis flare." She was admitted to [facility] on 12.15.24 for treatment and then again on 01.12.25, to treat diverticulitis. She was given ertapenem, instead of her "normal doxycycline" to treat the diverticulitis and feels this antibiotic "really messed her up. I don't know why they didn't listen to me and just give me the doxycycline." She is following up with her care team as suggested by the [facility]. She reports that she's been nauseous all day, every day, with severe lower and epigastric abdominal pains, and left kidney pain since she left that hospital. She states that she is living on "Tums, Tylenol, GasX, and Colace." She reports taking Tylenol every 4 to 6 hours, "starting the day with an Excedrin Migraine." EGD 03.12.25 Non-obstructing Schatzki ring. Chronic gastritis. Biopsied. No gross lesions in the entire examined duodenum. CT abd/pelvis at [facility] 03.18.25 1. Possibility of 2.2 centimeter rectal/anal mass creating filling defect in the contrast column. 2. Biliary Sludge. 3. Right renal cysts confirmed on prior ultrasound. 4. Diverticulosis OV 04.04.25 pt reports continued LUQ aching pain; worse while riding in the car or jolting movement, states that Tylenol is mildly helpful for pain. Pt reports that her nausea has not gone away, is wondering if this could be from her gallbladder. Reports that she is still on bland diet; notes constipation if she does not eat on the bland diet. Pt also states that she has a constant headache, is concerned about her blood pressure, and has intermittent edema. ] [facility] Medical History Constipation GERD (gastroesophageal reflux disease) Diverticulitis Post-menopausal atrophic vaginitis Pelvic and perineal pain Complex renal cyst Wears glasses Cancer Pernicious anemia Hepatitis Syncope Hypotension Dietary restriction History of hiatal hernia History of ulceration History of diverticulitis Smoker Abdominal pain History of edema Depression History of IBS Gastric reflux History of esophageal dilatation Migraine Hyperlipidemia Anxiety Fibromyalgia Vitamin B deficiency Diverticulosis Home Medications Medication Instructions Recorded Last Taken Type acetaminophen 500 mg capsule 500 mg PO Q6H PRN pain 07/02/21 04/23/25 08:00 History cranberry fruit 400 mg capsule 400 mg PO BID 07/02/21 Unknown History esomeprazole magnesium 40 mg 40 mg PO DAILY 07/02/21 04/23/25 08:00 History capsule,delayed release (Nexium) rosuvastatin 20 mg tablet 20 mg PO DAILY 07/02/21 Unknown History pougyxo-cwaxytviekust-akvvldnd 250 2 tab PO Q6H PRN pain 02/14/23 Unknown History mg-250 mg-65 mg tablet (Excedrin Migraine) calcium-mag oxide-vitamin D3 250 1 cap PO BID 02/14/23 Unknown History mg-125 mg-100 unit capsule (Coral Calcium) fluticasone propionate 50 1 spray intranasal Q12H PRN 02/14/23 Unknown History mcg/actuation nasal allergy symptoms spray,suspension (Allergy Relief (fluticasone)) lifitegrast 5 % eye drops in a 1 drp ophthalmic (eye) BID 02/14/23 Unknown History dropperette (Xiidra) potassium 99 mg tablet 99 mg PO QDAY 02/14/23 Unknown History triamcinolone acetonide 0.1 % 1 applic topical DAILY PRN EARS 02/14/23 Unknown History topical cream vitamin b12 1,200 unit IM Q3W 02/14/23 Unknown History escitalopram oxalate 20 mg tablet 20 mg PO QDAY 11/02/23 04/23/25 08:00 History lorazepam 0.5 mg tablet 0.5 mg PO Q6H PRN anxiety 11/02/23 03/12/25 09:30 History cholecalciferol (vitamin D3) 25 2,000 unit PO DAILY 05/30/24 Unknown History mcg (1,000 unit) capsule Lactobacillus acidophilus 10 mg PO DAILY 03/08/25 03/12/25 09:30 History (Acidophilus capsule) docusate sodium 100 mg capsule 100 mg PO BID 03/08/25 Unknown History (Colace) simethicone 80 mg chewable tablet 80 mg PO BID PRN abdominal 03/08/25 Unknown History distention nystatin 100,000 unit/gram topical 1 applic topical DAILY 04/19/25 Unknown History powder Allergy/AdvReac Type Severity Reaction Status Date / Time amoxicillin Allergy Intermediate unknown Verified 04/23/25 11:10 latex Allergy Intermediate Unknown Verified 04/23/25 11:10 metronidazole (From Flagyl) Allergy Intermediate unknown Verified 04/23/25 11:10 Quinolones Allergy Intermediate unknown Verified 04/23/25 11:10 Sulfa (Sulfonamide Allergy Intermediate unknown Verified 04/23/25 11:10 Antibiotics) fentanyl Allergy Angioedema Verified 04/23/25 11:10 nitrous oxide Allergy Other Verified 04/23/25 11:10 soap Allergy Other Uncoded 03/08/25 13:43 Family History Mother Hypertension Cancer Father Hypertension Sister Cancer Brother Cancer Other Heart disease Skin cancer Surgical History History of esophagogastroduodenoscopy (EGD) Hx of melanoma excision Hx of colonoscopy H/O bilateral cataract extraction History of hysterectomy History of tonsillectomy History of lumpectomy of left breast Social History Smoking Status: Current every day smoker tobacco type: cigarettes alcohol intake: never substance use type: does not use caffeine: Yes Type: coffee and tea Number of servings: 2 what type of physical activity do you participate in: none and other frequency: other duration: other do you feel safe at home: Yes ROS Constitutional Constitutional: Denies fatigue, fever(s), poor appetite, weight gain or weight loss Gastrointestinal Gastrointestinal: Denies belching, bloating, change in bowel habits, change in stool character, chewing difficulty, coffee ground emesis, constipation, cramping, diarrhea, dyspepsia, dysphagia, early satiety, excessive flatus, fecal incontinence, heartburn, hematemesis, hematochezia, hemorrhoids, loose stools, melena, nausea, odynophagia, rectal bleeding, tenesmus, vomiting or weight changes Vital Signs Vital Signs Vital Signs: 04/23/25 11:06 04/23/25 11:06 04/23/25 11:32 Temperature 97.3 F L 97.3 F L Temperature Source Temporal Pulse Rate 63 63 Respiratory Rate 16 16 Respiratory Pattern Normal Blood Pressure 134/76 H 134/76 H Blood Pressure Mean 95 Blood Pressure Source Monitor Blood Pressure Position Semi-Fowlers Blood Pressure Location Left Arm Pulse Ox 99 99 Oxygen Delivery Method Room Air Room Air Weight Weight: 169 lb 12.095 oz Body Mass Index (BMI) 25.8 Physical Exam Const alert, oriented x3, no apparent distress and healthy appearing General Appearance: cooperative GI normal to inspection, nondistended, normoactive bowel sounds, soft to palpation, non-tender and non-distended Percussion: normal to percussion Rectal Exam: deferred Assessment & Plan Assessment/Plan (1) Diverticula, colon: PLAN: Assessment and Plan Assessment and Plan (1) GERD (gastroesophageal reflux disease): Status: Acute Plan: Marilou is a 47-year-old female patient here today for evaluation of bloating, heartburn and constipation. She has had heartburn since 2019 but it worsened last summer. She takes famotidine as needed for control of this but has never been on a PPI. Patient's bloating is typically associated with eating gluten. She eats mostly gluten-free diet at this point. Will order celiac panel and she will have EGD with biopsy. I did advise that she will need to eat gluten for either these tests to be accurate. Patient has had constipation since high school and takes MiraLAX daily. Patient has never had a screening colonoscopy and will be scheduled for this with her EGD. I have provided samples of Linzess 72 mcg daily for her to trial. If patient has good results will send prescription. - EGD with biopsy for possible celiac disease - Screening colonoscopy - Trial Linzess 72 mcg daily - Follow-up after procedures Note: J[employer] speech recognition heel burnisher software was used to create portions of this document. Sound-alike and misspelled words, as well as other heel burnisher errors may be contained in the documentation. (2) Bloating: Status: Acute (3) Screen for colon cancer: Status: Acute Orders: Orders Celiac Disease Profile Today K21.9 - Gastro-esophageal reflux disease without esophagitis Medications: New peg 3350-electrolytes 236-22.74-6.74 -5.86 gram (Golytely) until fecal effluent is clear 240 mL PO Q10M 4,000 mL 0RF ]
--- NOTE | 2025-04-23 12:35 | PCM.POST.ANE ---
Anesthesia: Postop Eval I Current Vital Signs Temperature: 97.9 F Pulse Rate: 53 Blood Pressure: 80/51 Respiratory Rate: 16 Pulse Ox: 97 Oxygen Delivery Method: Room Air Assessment Airway patent: Yes Spontaneous unlabored respirations: Yes Mental status: Calm and Asleep nausea: No Vomiting: No Anesthesia Complication: No Fluid Hydration Crystalloid volume administer (ml): 200 Total IV fluid infused: 200 Progress Note Anesthesia document: Postop Eval 1 completed: Yes
--- NOTE | 2025-04-23 12:40 | OP.PROVAT_ITS ---
04/23/2025 Deena Kwon Md Re : Flexible Sigmoidoscopy procedure for Shanda Young Dear Doyle This procedure was performed on Wednesday, April 23, 2025. My impressions and recommendations are as follows: Impressions : - No specimens collected. Recommendations : My findings are described in the full procedure note, which is enclosed. If I can be of further assistance, please feel free to contact me at . Sincerely, Mauri Macedo, DO 04/23/2025 12:39:46 PM This report has been signed electronically.
--- NOTE | 2025-04-23 12:40 | OP.FLEXSIG_ITS ---
Patient Name: Shanda Young Procedure Date: 04/23/2025 10:59 AM Date of : 1945 Age: 79 Procedure: Flexible Sigmoidoscopy Indications: Abnormal CT of the GI tract Providers: Mauri Macedo DO Medicines: Monitored Anesthesia Care Patient Profile: This is a 79 year old female. Refer to note in patient chart for documentation of history and physical. Last Colonoscopy: 1 year ago. Complications: No immediate complications. Procedure: Pre-Anesthesia Assessment: - Prior to the procedure, a History and Physical was performed, and patient medications and allergies were reviewed. The patient is competent. The risks and benefits of the procedure and the sedation options and risks were discussed with the patient. All questions were answered and informed consent was obtained. Patient identification and proposed procedure were verified by the physician in the pre-procedure area. Mental Status Examination: alert and oriented. Airway Examination: normal oropharyngeal airway and neck mobility. Respiratory Examination: clear to auscultation. CV Examination: normal. Prophylactic Antibiotics: The patient does not require prophylactic antibiotics. Prior Anticoagulants: The patient has taken no anticoagulant or antiplatelet agents. ASA Grade Assessment: II - A patient with mild systemic disease. After reviewing the risks and benefits, the patient was deemed in satisfactory condition to undergo the procedure. The anesthesia plan was to use monitored anesthesia care (MAC). Immediately prior to administration of medications, the patient was re-assessed for adequacy to receive sedatives. The heart rate, respiratory rate, oxygen saturations, blood pressure, adequacy of pulmonary ventilation, and response to care were monitored throughout the procedure. The physical status of the patient was re-assessed after the procedure. After obtaining informed consent, the endoscope was passed under direct vision. Throughout the procedure, the patient's blood pressure, pulse, and oxygen saturations were monitored continuously. The Colonoscope was introduced through the anus and advanced to the sigmoid colon. The flexible sigmoidoscopy was accomplished without difficulty. The patient tolerated the procedure well. Scope In: 12:22:33 PM Scope Out: 12:27:58 PM Total Procedure Duration Time 0 hours 5 minutes 25 seconds Findings: Multiple small and large-mouthed diverticula were found in the recto-sigmoid colon, sigmoid colon and descending colon. A moderate amount of stool was found in the rectum, in the recto-sigmoid colon, in the sigmoid colon and in the descending colon, interfering with visualization. Impression: - No specimens collected. Procedure Code(s): --- Professional --- 15591, Sigmoidoscopy, flexible; diagnostic, including collection of specimen(s) by brushing or washing, when performed (separate procedure) CPT copyright 2021 [employer]. All rights reserved. The codes documented in this report are preliminary and upon medical record coder review may be revised to meet current compliance requirements. Mauri Macedo DO 04/23/2025 12:39:46 PM This report has been signed electronically. Number of Addenda: 0 Note Initiated On: 04/23/2025 10:59 AM
--- NOTE | 2025-04-23 14:54 | POSTOPAN2_ITS ---
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.[email or web address] Spontaneous unlabored Yes 04/23/25 12:35 ADJUNCT PROFESSOR OF VOICE.GDOTT respirations Mental status Calm,Asleep 04/23/25 12:35 ADJUNCT PROFESSOR OF VOICE.GDOTT nausea No 04/23/25 12:35 ADJUNCT PROFESSOR OF VOICE.GDOTT Vomiting No 04/23/25 12:35 ADJUNCT PROFESSOR OF VOICE.GDOTT Anesthesia Postop Eval I: Fluid Summary Crystalloid volume administer 200 04/23/25 12:35 ADJUNCT PROFESSOR OF VOICE.GDOTT (ml) Colloids volume administered ( ml) Blood Product volume administered (ml) Total IV fluid infused 200 04/23/25 12:35 ADJUNCT PROFESSOR OF VOICE.GDOTT Anesthesia Postop Eval I: Summary Notes Anesthesia Complication No 04/23/25 12:35 ADJUNCT PROFESSOR OF VOICE.GDOTT Anesthesia Complication Comment: Post-operative progress note Anesthesia: Postop Eval II Evaluation Mental status: Awake and Calm Pain Level: 1 nausea: No Vomiting: No Complications Anesthesia Complication: No
--- NOTE | 2025-04-23 14:54 | PCM.POSTANE2 ---
Anesthesia Postop Eval I Sum Postop Eval Completion status Anesthesia document: Postop Eval 1 completed: Yes Anesthesia Postop Eval I Summary Anesthesia Postop Eval I Summary: Anesthesia Postop Eval I: Assessment Summary Airway patent Yes 04/23/25 12:35 [email or web address] Spontaneous unlabored Yes 04/23/25 12:35 [email or web address] respirations Mental status Calm,Asleep 04/23/25 12:35 [email or web address] nausea No 04/23/25 12:35 [email or web address] Vomiting No 04/23/25 12:35 [email or web address] Anesthesia Postop Eval I: Fluid Summary Crystalloid volume administer 200 04/23/25 12:35 [email or web address] (ml) Colloids volume administered ( ml) Blood Product volume administered (ml) Total IV fluid infused 200 04/23/25 12:35 [email or web address] Anesthesia Postop Eval I: Summary Notes Anesthesia Complication No 04/23/25 12:35 [email or web address] Anesthesia Complication Comment: Post-operative progress note Anesthesia: Postop Eval II Evaluation Mental status: Awake and Calm Pain Level: 1 nausea: No Vomiting: No Complications Anesthesia Complication: No
== END 2025-04-23 13:28 | disposition home or self-care (01) ==
LOC: EN 10:48 → AC 10:49
PROVIDERS: PCP Student in an Organized Health Care Education/Training Program; Referring Provider Student in an Organized Health Care Education/Training Program; Visit Provider Internal Medicine Gastroenterology
PROC: 0DJD8ZZ Inspection of Lower Intestinal Tract, Via Natural or Artificial Opening Endoscopic (ICD-10-PCS; CPT 45330; principal; 2025-04-23 11:55)
DX: K21.9 Gastro-esophageal reflux disease without esophagitis (principal); E78.5 Hyperlipidemia, unspecified; R14.0 Abdominal distension (gaseous); K57.30 Diverticulosis of large intestine without perforation or abscess without bleeding; Z87.891 Personal history of nicotine dependence; Z79.899 Other long term (current) drug therapy; F41.9 Anxiety disorder, unspecified; Z98.41 Cataract extraction status, right eye; Z98.42 Cataract extraction status, left eye; Z90.710 Acquired absence of both cervix and uterus; R93.5 Abnormal findings on diagnostic imaging of other abdominal regions, including retroperitoneum
CPT/HCPCS: 45330; J2405